=== PATIENT | male | born 1925 | race Caucasian/White ===

== ENCOUNTER 2017-03-26 00:39 | Emergency (ER) | payer MEDICARE ==
[~2017-03-26] VITALS: Ht 170.2 cm; Wt 74.0 kg
[~2017-03-26 00:39] MED LIST: ASPI81TA82 PO; CILO50TA PO; ENAL5TAB PO; LEVO50TA4 PO; METO25 PO; NAPR220T95 PO; NITR0.4S SL; PLAV75TA PO; VITA100020 SL; ZOCO40TA PO
[2017-03-26 00:42] VITALS: BP 211/88; PULSE 52; RESP 17; TEMP 97.5; O2SAT 96
[2017-03-26 00:59] VITALS: BP 216/91; PULSE 55; RESP 16; O2SAT 99
[2017-03-26] MEDS ORDERED: NITR1SUB3 SL (00:59)
[2017-03-26] MEDS ORDERED: SIMV40TA PO (00:59)
[2017-03-26] MEDS ORDERED: LISI-519 PO (00:59)
[2017-03-26] MEDS ORDERED: CLOP75TA PO (00:59)
[2017-03-26] MEDS ORDERED: MULTTAB67 PO (00:59)
[2017-03-26] MEDS ORDERED: ASPI-516 CHEW (00:59)
[2017-03-26] MEDS ORDERED: METO25TA3 PO (00:59)
[2017-03-26] MEDS ORDERED: PROP150T PO (00:59)
[2017-03-26] MEDS ORDERED: LEVO50TA4 PO (00:59)
[2017-03-26 01:30] VITALS: BP 126/82; PULSE 64; RESP 20; O2SAT 98
--- NOTE | 2017-03-26 01:37 | PD ---
HPI Chief Complaint: Abdominal Pain Time Seen by Provider: 00:46 Travel History International Travel<30 days: No Contact w/Intl Traveler<30days: No Traveled to known affect area: No History of Present Illness HPI Patient is a 89-year-old male who for a week his been bloated and feeling not well when he eats. He for the last few days has not been noted move his bowels. And all the food that he eats half an hour later he gets severe epigastric-like pain. He took Tums to alleviate the epigastric-like pain which worked briefly but then the symptoms returned. The patient says he feels bloated unable to move his bowels and food is making him have epigastric pain. He denies ever having a colonoscopy he denies ever having endoscopy and he has never had surgery. Patient has hypertension for which she is on a small dose of lisinopril 5 mg and metoprolol 25 mg only as needed however he did not take it tonight and is heart rate is only 51 bedside. However his initial blood pressure is 216/70. Patient has mild abdomen pain diffuse lower and epigastric pain on initial exam he is no distress however his main complaint was that his neck is in a weird position in the stretcher that's making his abdomen hurt worse. He is a good historian and so is his who is bedside with list of meds. He also takes a small dose of Synthroid for hypothyroidism but he has been on that for a while over 2 years the Tums help relieve his pain temporarily but did not help him move his bowels he has not seen his doctor for this complaint. The bloating is waxing and waning in the epigastric pain comes after food and then breathe better with antacids but then returns. REPEAT MANUAL BP 121/90 PFSH Past Medical History Arthritis: No Asthma: No Autoimmune Disease: No Anxiety: No Depression: No Heart Rhythm Problems: No Cancer: No Cardiac Catheterization: Yes Cardiovascular Problems: No High Cholesterol: Yes Chemotherapy: No Chest Pain: Yes Congestive Heart Failure: No COPD: No Cerebrovascular Accident: No Diabetes: No Endocrine: Yes GERD: No Genitourinary: Yes Hiatal Hernia: No Heparin Induced Thrombocytopen: No Hypertension: Yes Immune Disorder: No Kidney Stones: No Musculoskeletal: No Neurologic: No Psychiatric: No Reproductive: No Respiratory: No Migraines: No Myocardial Infarction: Yes Radiation Therapy: No Renal Failure: No Seizures: No Sickle Cell Disease: No Sleep Apnea: No Thyroid Disease: Yes (HYPOTHYROID) Ulcer: No Tetanus Vaccination: > 5 Years Influenza Vaccination: No Past Surgical History Abdominal Surgery: No AICD: No Arteriovenous Shunt: No Body Medical Devices: CARDIAC STENT Cardiac Surgery: Yes (CARDIAC CATH WITH STENT PLACEMENT) Coronary Stent: Yes Ear Surgery: No Endocrine Surgery: No Eye Surgery: No Genitourinary Surgery: No Gynecologic Surgery: No Insulin Pump: No Joint Replacement: No Oral Surgery: No Pacemaker: No Thoracic Surgery: No Other Surgery: Yes (EYELIDS) Social History Alcohol Use: No Tobacco Use: No Substance Use: No Allergies-Medications (Allergen,Severity, Reaction): Coded Allergies: penicillin G (Unverified Allergy, Severe, Anaphylaxis, 03/26/17) Reported Meds & Prescriptions Reported Meds & Active Scripts Active Protonix (Pantoprazole Sodium) 40 Mg Tab 40 Mg PO DAILY Zofran (Ondansetron HCl) 4 Mg Tab 4 Mg PO Q6HR PRN Reported Vitamin B-12 ER (Cyanocobalamin) 2,000 Mcg Tab 5,000 Mcg PO DIRECTED Aleve PM (Naproxen Sodium-Diphenhydramine) 220-25 Mg Tab 1 Tab PO HS PRN Multiple Vitamin 1 Tab 1 Tab PO DAILY Aspirin 81 Mg Chew 81 Mg CHEW DAILY Metoprolol Tartrate 25 Mg Tab 25 Mg PO DAILY PRN Nitroglycerin SL (Nitroglycerin) 0.4 Mg Subl 0.4 Mg SL DIRECTED PRN ONE TABLET UNDER THE TONGUE NEEDED FOR CHEST PAIN, MAY REPEAT EVERY FIVE MINUTES FOR A TOTAL OF 3 DOSES OR CALL 911 IF NO RELIEF Clopidogrel (Clopidogrel Bisulfate) 75 Mg Tab 75 Mg PO DAILY Lisinopril 5 Mg Tab 5 Mg PO DAILY Simvastatin 40 Mg Tab 40 Mg PO HS Levothyroxine (Levothyroxine Sodium) 50 Mcg Tab 50 Mcg PO DAILY Review of Systems Except as stated in HPI: all other systems reviewed are Neg Gastrointestinal: Positive: Nausea, Abdominal Pain, Constipation Physical Exam Narrative GENERAL: Patient is awake alert oriented 3 good historian no signs of distress SKIN: Warm and dry. HEAD: Atraumatic. Normocephalic. EYES: Pupils equal and round. No scleral icterus. No injection or drainage. ENT: No nasal bleeding or discharge. Mucous membranes pink and moist. NECK: Trachea midline. No JVD. CARDIOVASCULAR: Regular rate and rhythm. RESPIRATORY: No accessory muscle use. Clear to auscultation. Breath sounds equal bilaterally. GASTROINTESTINAL: Abdomen positive tenderness in the epigastrium as well as bloated and distended feeling reported when I percuss his lower abdomen soft, . Hepatic and splenic margins not pa RECTAL GUAIAC NEGATIV E BROWN STOOL ONLY SMALL AMOUNT FELT TIP OF GLOVE IN SIGMOID MUSCULOSKELETAL: Extremities without clubbing, cyanosis, or edema. No obvious deformities. NEUROLOGICAL: Awake and alert. No obvious cranial nerve deficits. Motor grossly within normal limits. Five out of 5 muscle strength in the arms and legs. Normal speech. PSYCHIATRIC: Appropriate mood and affect; insight and judgment normal. Data Data Last Documented VS Vital Signs Date Time Temp Pulse Resp B/P (MAP) Pulse Ox O2 Delivery O2 Flow Rate FiO2 03/26/17 06:10 03/26/17 06:00 58 18 99 Room Air 03/26/17 00:42 97.5 Orders Orders Complete Blood Count With Diff (03/26/17 01:30) Comprehensive Metabolic Panel (03/26/17 01:30) Ckmb (Isoenzyme) Profile (03/26/17 01:30) Troponin I (03/26/17 01:30) Lipase (03/26/17 01:30) Chest, Single Ap (03/26/17 01:30) Abdomen, Upright Only (03/26/17 01:30) Pantoprazole Inj (Protonix Inj) (03/26/17 01:45) Ondansetron Inj (Zofran Inj) (03/26/17 01:45) CKMB (03/26/17 01:35) CKMB% (03/26/17 01:35) Oral Contrast - Adult (03/26/17 02:26) Diatrizoate Liq ( Gastroview Liq) (03/26/17 02:44) Ct Abd/Pel W/O Iv Contrast (03/26/17 ) Metoclopramide Inj (Reglan Inj) (03/26/17 04:45) Ed Discharge Order (03/26/17 06:15) Labs Laboratory Tests Test 03/26/17 01:35 White Blood Count 12.9 TH/MM3 Red Blood Count 5.10 MIL/MM3 Hemoglobin 16.0 GM/DL Hematocrit 47.2 % Mean Corpuscular Volume 92.5 FL Mean Corpuscular Hemoglobin 31.4 PG Mean Corpuscular Hemoglobin Concent 34.0 % Red Cell Distribution Width 13.5 % Platelet Count 207 TH/MM3 Mean Platelet Volume 10.0 FL Neutrophils (%) (Auto) 73.8 % Lymphocytes (%) (Auto) 16.5 % Monocytes (%) (Auto) 6.8 % Eosinophils (%) (Auto) 2.5 % Basophils (%) (Auto) 0.4 % Neutrophils # (Auto) 9.5 TH/MM3 Lymphocytes # (Auto) 2.1 TH/MM3 Monocytes # (Auto) 0.9 TH/MM3 Eosinophils # (Auto) 0.3 TH/MM3 Basophils # (Auto) 0.1 TH/MM3 CBC Comment DIFF FINAL Differential Comment Blood Urea Nitrogen 27 MG/DL Creatinine 2.20 MG/DL Random Glucose 121 MG/DL Total Protein 7.9 GM/DL Albumin 4.2 GM/DL Calcium Level 9.0 MG/DL Alkaline Phosphatase 145 U/L Aspartate Amino Transf (AST/SGOT) 25 U/L Alanine Aminotransferase (ALT/SGPT) 25 U/L Total Bilirubin 0.6 MG/DL Sodium Level 142 MEQ/L Potassium Level 3.5 MEQ/L Chloride Level 108 MEQ/L Carbon Dioxide Level 26.3 MEQ/L Anion Gap 8 MEQ/L Estimat Glomerular Filtration Rate 28 ML/MIN Total Creatine Kinase 130 U/L Creatine Kinase MB 1.6 NG/ML Troponin I 0.02 NG/ML Lipase 420 U/L MDM Medical Decision Making Medical Screen Exam Complete: Yes Emergency Medical Condition: Yes Differential Diagnosis pt could have gastroenteritis versus small bowel obstruction versus gastric volvulus versus outlet obstruction of the gastrum . Versus GERD with constipation Narrative Course Patient's labs are within normal limitsEKG trop negative KUB upright and a chest x-ray and no obvious findings... however he still continues to have difficulty moving his bowels . Rectal minimal stool guaiac negative... CT abdo pelvis no specific pathology to explain the vomit , Reglan zofran and PO challenge tolerated d/c close follow up with his PCP for EGD told to return if pain or vomit worsens Diagnosis Primary Impression: Pain in the abdomen Qualified Codes: R10.9 - Unspecified abdominal pain Patient Instructions: Abdominal Pain (ED), General Instructions Scripts Pantoprazole (Protonix) 40 Mg Tab 40 MG PO DAILY for Reflux, #20 TAB 0 Refills Prov: Husam Charles MD 03/26/17 Ondansetron (Zofran) 4 Mg Tab 4 MG PO Q6HR Y for NAUSEA OR VOMITING, #10 TAB 0 Refills Prov: Husam Charles MD 03/26/17 Disposition: 01 DISCHARGE HOME Condition: Good Husam Cahrles MD Mar 26, 2017 01:37
[2017-03-26] MEDS ORDERED: PANTOPRAZOLE SODIUM 40 MG VIAL IV PUSH ONE (01:45)
[2017-03-26] MEDS ORDERED: ONDANSETRON HCL 4 MG/2 ML VIAL IV PUSH ONE (01:45)
[2017-03-26 01:57] LABS: AUTOMATED NEUTROPHIL # 9.5 TH/MM3 (1.8-7.7); BASOPHIL # 0.1 TH/MM3 (0-0.2); BASOPHIL % 0.4 % (0.0-2.0); EOSINOPHIL # 0.3 TH/MM3 (0-0.4); EOSINOPHIL % 2.5 % (0.0-4.0); HEMATOCRIT 47.2 % (39.0-51.0); LYMPH % 16.5 % (9.0-44.0); LYMPHOCYTE # 2.1 TH/MM3 (1.0-4.8); MEAN CELL VOLUME 92.5 FL (80.0-100.0); MEAN CORPUSCULAR HEMOGLOBIN 31.4 PG (27.0-34.0); MONO % 6.8 % (0.0-8.0); MONOCYTE # 0.9 TH/MM3 (0-0.9); NEUT % 73.8 % (16.0-70.0); PLATELET COUNT 207 TH/MM3 (150-450); RED CELL DISTRIBUTION WIDTH 13.5 % (11.6-17.2); WHITE BLOOD COUNT 12.9 TH/MM3 (4.0-11.0)
[2017-03-26 02:19] LABS: ALBUMIN 4.2 GM/DL (3.4-5.0); ALT (GPT) 25 U/L (12-78); AST (GOT) 25 U/L (15-37); BICARBONATE 26.3 MEQ/L (21.0-32.0); BLOOD UREA NITROGEN 27 MG/DL (7-18); CHLORIDE 108 MEQ/L (98-107); GLOMERULAR FILTRATION RATE 28 ML/MIN (>89); GLUCOSE,RANDOM 121 MG/DL (74-106); LIPASE 420 U/L (73-393); SODIUM (NA) 142 MEQ/L (136-145)
[2017-03-26 02:20] LABS: ALKALINE PHOSPHATASE 145 U/L (45-117); TOTAL BILIRUBIN ADULT 0.6 MG/DL (0.2-1.0); TOTAL PROTEIN 7.9 GM/DL (6.4-8.2); TROPONIN I 0.02 NG/ML (0.02-0.05)
--- NOTE | 2017-03-26 02:21 | RADRPT ---
EXAM DATE/TIME: 03/26/2017 01:39 [facility] COMPARISON: No previous studies available for comparison. INDICATIONS : Chest pain. MEDICAL HISTORY : Hypertension. SURGICAL HISTORY : Coronary artery stent. ENCOUNTER: Initial ACUITY: 1 day PAIN SCORE: 9/10 LOCATION: Bilateral chest FINDINGS: The lungs are clear without infiltrate, nodule, or mass. There is no appreciable pleural effusion fo r technique. Heart and mediastinum are unremarkable. There are atherosclerotic calcifications of the aorta due to chronic atherosclerotic disease. CONCLUSION: No acute cardiopulmonary disease. Jerzy Rodarte MD on March 26, 2017 at 2:19 Board Certified Radiologist. This report was verified electronically.
--- NOTE | 2017-03-26 02:21 | RADRPT ---
EXAM DATE/TIME: 03/26/2017 01:41 [facility] COMPARISON: No previous studies available for comparison. INDICATIONS : Bilateral upper quadrant abdominal pain. MEDICAL HISTORY : Hypertension. SURGICAL HISTORY : Coronary artery stent. ENCOUNTER: Initial ACUITY: 1 day PAIN SCORE: 9/10 LOCATION: Bilateral upper quadrant abdomen FINDINGS: The bowel gas is nonspecific. There are no signs of obstruction or free air for technique. No defini te calcified stones are identified for technique. Moderate stool is present throughout the colon. CONCLUSION: Unremarkable study except for stool. Jerzy Rodarte MD on March 26, 2017 at 2:19 Board Certified Radiologist. This report was verified electronically.
[2017-03-26] MEDS ORDERED: DIATRIZOATE MEGLUM/DIATRIZOATE SOD 9 ML CUP ONE (02:44)
--- NOTE | 2017-03-26 04:10 | RADRPT ---
EXAM DATE/TIME: 03/26/2017 03:42 [facility] COMPARISON: No previous studies available for comparison. INDICATIONS : Distention; constipation. ORAL CONTRAST: Partial prescribed oral contrast ingested. RADIATION DOSE: 7.44 CTDIvol (mGy) MEDICAL HISTORY : Cardiovascular disease. Hypertension. Renal failure, chronic. SURGICAL HISTORY : None. ENCOUNTER: Initial ACUITY: 1 day PAIN SCALE: 5/10 LOCATION: Bilateral abdomen TECHNIQUE: Volumetric scanning of the abdomen and pelvis was performed. Using automated exposure control and ad justment of the mA and/or kV according to patient size, radiation dose was kept as low as reasonably achievable to obtain optimal diagnostic quality images. DICOM format image data is available electro nically for review and comparison. FINDINGS: CT Abdomen: The liver, spleen, pancreas, left kidney, adrenals are unremarkable. There are 2 separate almost 4 cm cyst in the right kidney. There is no evidence for any appreciable pathological adenopat hy, free fluid, or bowel obstruction. There is a tiny 4 mm nodule in right lower lobe laterally with separate area of atelectasis. Chronic vascular calcifications are present involving the aorta, iliac arteries without any significant stenosis or aneurysmal dilatations for technique. The aorta however demonstrates areas of calcifications that are probably atherosclerotic changes within the wall, howev er possibility of dissection is not excluded. CT pelvis: There is no evidence for mass, abscess formation, or any significant adenopathy within the pelvis. The prostate gland is inhomogeneous and measures 3.6 x 5.4 cm in AP and transverse diameters and nonspecific. There are scattered diverticuli mainly in the sigmoid colon without definite signs of diverticulitis. CONCLUSION: 1. There is a tiny right lung base nodule, repeat noncontrast chest CT is suggested in 6 months as a conservative follow up. 2. Atherosclerotic changes of aorta without aneurysm, however dissection is not excluded. 3. Hiatal hernia and colonic diverticuli. Jerzy Rodarte MD on March 26, 2017 at 4:03 Board Certified Radiologist. This report was verified electronically.
[2017-03-26] MEDS ORDERED: METOCLOPRAMIDE INJ 10 MG in SODIUM CHLORIDE 0.9% INJ 50 ML IV ONE (04:45)
[2017-03-26] MEDS ORDERED: ZOFR4TAB PO (05:52)
[2017-03-26] MEDS ORDERED: PROT40TA PO (05:53)
[2017-03-26 06:00] VITALS: BP 140/76; PULSE 58; RESP 18; O2SAT 99
[2017-03-26] MEDS ORDERED: VITA20004 PO (16:46)
[2017-03-26] MEDS ORDERED: NAPR1TAB98 PO (16:46)
== END 2017-03-26 06:25 | disposition home or self-care (01) ==
LOC: NEPC 00:39
DX: R10.13 Epigastric pain (principal); I10 Essential (primary) hypertension; E03.9 Hypothyroidism, unspecified
CPT/HCPCS: 71010; 74000; 74176; 80053; 82550; 82552; 83690; 84484; 85025; 96365; 96366; 96375; 99285; C9113; J2405; J2765; Q9963

== ENCOUNTER 2017-03-26 15:23 | Inpatient (IN) | payer MEDICARE ==
[~2017-03-26] VITALS: Ht 170.2 cm; Wt 76.8 kg
[2017-03-26] VITALS (8 sets, daily range): BP systolic 148–213; BP diastolic 70–84; PULSE 65–90; RESP 12–24; TEMP 97.4–97.8; O2SAT 93–98
[~2017-03-26 15:23] MED LIST changes: +ASPI-516 CHEW; +CLOP75TA PO; +LISI-519 PO; +METO25TA3 PO; +MULTTAB67 PO; +NITR1SUB3 SL; +PROP150T PO; +PROT40TA PO; +SIMV40TA PO; +ZOFR4TAB PO
--- NOTE | 2017-03-26 15:59 | PD ---
HPI Chief Complaint: Abdominal Pain Time Seen by Provider: 15:44 Travel History International Travel<30 days: No Contact w/Intl Traveler<30days: No Traveled to known affect area: No History of Present Illness HPI Patient is an 89 year old male presents to the ER for evaluation of epigastric pain. Here last night for same and had fairly complete workup including CT abd , labs, troponin, EKG all of which showed no definative source of pain. He states pain is epigastric, intermittent, not associated with N/V nor SOB. No alleviating nor exacerbating factors. PFSH Past Medical History Arthritis: No Asthma: No Autoimmune Disease: No Anxiety: No Depression: No Heart Rhythm Problems: No Cancer: No Cardiac Catheterization: Yes Cardiovascular Problems: No High Cholesterol: Yes Chemotherapy: No Chest Pain: Yes Congestive Heart Failure: No COPD: No Cerebrovascular Accident: No Diabetes: No Endocrine: Yes GERD: No Genitourinary: Yes Hiatal Hernia: No Heparin Induced Thrombocytopen: No Hypertension: Yes Immune Disorder: No Kidney Stones: No Musculoskeletal: No Neurologic: No Psychiatric: No Reproductive: No Respiratory: No Migraines: No Myocardial Infarction: Yes Radiation Therapy: No Renal Failure: No Seizures: No Sickle Cell Disease: No Sleep Apnea: No Thyroid Disease: Yes (HYPOTHYROID) Ulcer: No Past Surgical History Abdominal Surgery: No AICD: No Arteriovenous Shunt: No Body Medical Devices: CARDIAC STENT Cardiac Surgery: Yes (CARDIAC CATH WITH STENT PLACEMENT) Coronary Stent: Yes Ear Surgery: No Endocrine Surgery: No Eye Surgery: No Genitourinary Surgery: No Gynecologic Surgery: No Insulin Pump: No Joint Replacement: No Oral Surgery: No Pacemaker: No Thoracic Surgery: No Other Surgery: Yes (EYELIDS) Social History Alcohol Use: No Tobacco Use: No Substance Use: No Allergies-Medications (Allergen,Severity, Reaction): Coded Allergies: penicillin G (Unverified Allergy, Severe, Anaphylaxis, 03/26/17) Reported Meds & Prescriptions Reported Meds & Active Scripts Active Protonix (Pantoprazole Sodium) 40 Mg Tab 40 Mg PO DAILY Zofran (Ondansetron HCl) 4 Mg Tab 4 Mg PO Q6HR PRN Reported Vitamin B-12 ER (Cyanocobalamin) 2,000 Mcg Tab 5,000 Mcg PO DIRECTED Aleve PM (Naproxen Sodium-Diphenhydramine) 220-25 Mg Tab 1 Tab PO HS PRN Multiple Vitamin 1 Tab 1 Tab PO DAILY Aspirin 81 Mg Chew 81 Mg CHEW DAILY Metoprolol Tartrate 25 Mg Tab 25 Mg PO DAILY PRN Nitroglycerin SL (Nitroglycerin) 0.4 Mg Subl 0.4 Mg SL DIRECTED PRN ONE TABLET UNDER THE TONGUE NEEDED FOR CHEST PAIN, MAY REPEAT EVERY FIVE MINUTES FOR A TOTAL OF 3 DOSES OR CALL 911 IF NO RELIEF Clopidogrel (Clopidogrel Bisulfate) 75 Mg Tab 75 Mg PO DAILY Lisinopril 5 Mg Tab 5 Mg PO DAILY Simvastatin 40 Mg Tab 40 Mg PO HS Levothyroxine (Levothyroxine Sodium) 50 Mcg Tab 50 Mcg PO DAILY Review of Systems Except as stated in HPI: all other systems reviewed are Neg Physical Exam Narrative GENERAL: WD/WN in no obvious distress, quite pleasant. SKIN: Warm and dry. HEAD: Atraumatic. Normocephalic. EYES: Pupils equal and round. No scleral icterus. No injection or drainage. ENT: No nasal bleeding or discharge. Mucous membranes pink and moist. NECK: Trachea midline. No JVD. CARDIOVASCULAR: Regular rate and rhythm. RESPIRATORY: No accessory muscle use. Clear to auscultation. Breath sounds equal bilaterally. GASTROINTESTINAL: Abdomen soft, perhaps minimally tender in the epigastric region. No rebound no percussive tnederness. nondistended. Hepatic and splenic margins not palpable. MUSCULOSKELETAL: Extremities without clubbing, cyanosis, or edema. No obvious deformities. NEUROLOGICAL: Awake and alert. No obvious cranial nerve deficits. Motor grossly within normal limits. Five out of 5 muscle strength in the arms and legs. Normal speech. PSYCHIATRIC: Appropriate mood and affect; insight and judgment normal. Data Data Last Documented VS Vital Signs Date Time Temp Pulse Resp B/P (MAP) Pulse Ox O2 Delivery O2 Flow Rate FiO2 03/26/17 18:30 68 24 186/80 (115) 97 Room Air 03/26/17 15:27 97.8 Orders Orders Complete Blood Count With Diff (03/26/17 15:46) Comprehensive Metabolic Panel (03/26/17 15:46) Lipase (03/26/17 15:46) Urinalysis - C+S If Indicated (03/26/17 15:46) Iv Access Insert/Monitor (03/26/17 15:46) Ecg Monitoring (03/26/17 15:46) Oximetry (03/26/17 15:46) Sodium Chloride 0.9% Flush (Ns Flush) (03/26/17 16:00) Electrocardiogram (03/26/17 15:46) Troponin I (03/26/17 15:46) Ondansetron Inj (Zofran Inj) (03/26/17 16:00) Morphine Inj (Morphine Inj) (03/26/17 16:00) Us Abdomen Gallbladder (03/26/17 15:57) Aspirin Chew (Aspirin Chew) (03/26/17 18:30) Electrocardiogram (03/26/17 ) Troponin I (03/26/17 18:37) Heparin Inj (Heparin Inj) (03/26/17 18:45) Heparin-D5w 25,000 U/250 Ml (Heparin-D5w (03/26/17 18:45) Cbc No Diff, Includes Plts (03/29/17 06:00) Act Partial Throm Time (Ptt) (03/27/17 01:37) Occult Blood (Hemoccult) Stool (03/26/17 18:37) Admit Order (Ed Use Only) (03/26/17 ) Labs Laboratory Tests Test 03/26/17 16:50 03/26/17 19:20 White Blood Count 16.3 TH/MM3 Red Blood Count 5.27 MIL/MM3 Hemoglobin 16.6 GM/DL Hematocrit 48.5 % Mean Corpuscular Volume 92.1 FL Mean Corpuscular Hemoglobin 31.4 PG Mean Corpuscular Hemoglobin Concent 34.1 % Red Cell Distribution Width 13.7 % Platelet Count 190 TH/MM3 Mean Platelet Volume 10.2 FL Neutrophils (%) (Auto) 87.7 % Lymphocytes (%) (Auto) 4.6 % Monocytes (%) (Auto) 7.4 % Eosinophils (%) (Auto) 0.0 % Basophils (%) (Auto) 0.3 % Neutrophils # (Auto) 14.3 TH/MM3 Lymphocytes # (Auto) 0.7 TH/MM3 Monocytes # (Auto) 1.2 TH/MM3 Eosinophils # (Auto) 0.0 TH/MM3 Basophils # (Auto) 0.1 TH/MM3 CBC Comment AUTO DIFF Differential Comment AUTO DIFF CONFIRMED Red Cell Morphology Comment NORMAL Blood Urea Nitrogen 25 MG/DL Creatinine 2.07 MG/DL Random Glucose 132 MG/DL Total Protein 7.6 GM/DL Albumin 3.7 GM/DL Calcium Level 9.4 MG/DL Alkaline Phosphatase 186 U/L Aspartate Amino Transf (AST/SGOT) 206 U/L Alanine Aminotransferase (ALT/SGPT) 201 U/L Total Bilirubin 1.3 MG/DL Sodium Level 140 MEQ/L Potassium Level 4.7 MEQ/L Chloride Level 109 MEQ/L Carbon Dioxide Level 23.5 MEQ/L Anion Gap 8 MEQ/L Estimat Glomerular Filtration Rate 30 ML/MIN Troponin I 0.64 NG/ML 0.57 NG/ML Lipase 170 U/L [facility] Medical Decision Making Medical Screen Exam Complete: Yes Emergency Medical Condition: Yes Differential Diagnosis Pancreatitis, cholecystitis, ACS, AMI, gastroenteritis, PUD. Narrative Course Patient roomed in ED, appears comfortable. Pain medication given. EKG non- ischemic, repeated after troponin discovered elevated at 0.6 and remains non- ischemic. Patient heparinized after determined no contraindications. CXR negative. Appears comfortable. AST/ALT elevated as well. Discussed results with patient. US RUQ ordered, pain may be multifactorial: Last 24 hours Impressions Gall Bladder Ultrasound 03/26/17 [id number] Signed Impressions: Service Date/Time: Sunday, March 26, 2017 16:53 - CONCLUSION: 1. Gallbladder sludge with gallbladder wall thickening without other features to suggest acute cholecystitis. Therefore, findings are somewhat nonspecific and likely chronic in etiology. HIDA scan may be performed if there is continued clinical concern regarding acute cholecystitis. 2. Increased cortical echogenicity of the right kidney consistent with some degree of medical renal disease. 3. Simple right renal cysts. Jonh Jordan MD Patient discussed with Dr. Banks for admition and he is agreeable. Will pursue cardiology consult as inpatient. Diagnosis Primary Impression: Non-STEMI (non-ST elevated myocardial infarction) Additional Impressions: Transaminitis Elevated lipase Admitting Information Admitting Physician Requests: Admit Condition: Stable Kd Abraham MD Mar 26, 2017 15:59
[2017-03-26] MEDS ORDERED: SODIUM CHLORIDE 0.9% FLUSH 10 ML FLUSH IV FLUSH PRN ×2 (16:00→20:30)
[2017-03-26] MEDS ORDERED: MORPHINE SULFATE 2 MG/ML INJ IV PUSH ONE (16:00)
[2017-03-26] MEDS ORDERED: ONDANSETRON HCL 4 MG/2 ML VIAL IV PUSH ONE (16:00)
[2017-03-26] MEDS ORDERED: VITA20004 PO (16:46)
[2017-03-26] MEDS ORDERED: NAPR1TAB98 PO (16:46)
[2017-03-26 17:20] LABS: AUTOMATED NEUTROPHIL # 14.3 TH/MM3 (1.8-7.7); BASOPHIL # 0.1 TH/MM3 (0-0.2); BASOPHIL % 0.3 % (0.0-2.0); HEMATOCRIT 48.5 % (39.0-51.0); HEMOGLOBIN 16.6 GM/DL (13.0-17.0); LYMPH % 4.6 % (9.0-44.0); LYMPHOCYTE # 0.7 TH/MM3 (1.0-4.8); MEAN CELL VOLUME 92.1 FL (80.0-100.0); MEAN CORPUSCULAR HEMOGLOBIN 31.4 PG (27.0-34.0); MEAN CORPUSCULAR HGB CONC 34.1 % (32.0-36.0); MEAN PLATELET VOLUME 10.2 FL (7.0-11.0); MONO % 7.4 % (0.0-8.0); MONOCYTE # 1.2 TH/MM3 (0-0.9); NEUT % 87.7 % (16.0-70.0); PLATELET COUNT 190 TH/MM3 (150-450); RED BLOOD COUNT 5.27 MIL/MM3 (4.50-5.90); RED CELL DISTRIBUTION WIDTH 13.7 % (11.6-17.2); WHITE BLOOD COUNT 16.3 TH/MM3 (4.0-11.0)
--- NOTE | 2017-03-26 17:34 | RADRPT ---
EXAM DATE/TIME: 03/26/2017 16:53 [facility] COMPARISON: No previous studies available for comparison. INDICATIONS : Right upper quadrant pain. MEDICAL HISTORY : Myocardial infarction. Hypothyroidism. Hypercholesterolemia. Legally blind. Numbness. Hypertension. R enal insufficiency. Measles. SURGICAL HISTORY : Coronary artery stent. ENCOUNTER: Initial ACUITY: 1 day PAIN SCORE: 04/09 LOCATION: Right upper quadrant MEASUREMENTS: LIVER: 11.2 cm length COMMON DUCT: 4 mm RIGHT KIDNEY: 11.5 x 5.1 x 5.9 cm FINDINGS: LIVER: Left lobe is obscured by overlying bowel gas. Otherwise, diffusely homogeneous echotexture without in trahepatic ductal dilatation or gross focal mass. COMMON DUCT: No intraluminal mass or stone visualized. GALLBLADDER: The gallbladder wall thickening with small amount of gallbladder sludge in the dependent portion of t he gallbladder. No significant pericholecystic fluid or sonographic Ham sign. PANCREAS: Largely obscured by overlying bowel gas. RIGHT KIDNEY: Mild increased cortical echogenicity with simple appearing cysts in the superior and lower poles. The superior pole cyst measures 4.6 x 4.1 x 4.2 cm. Inferior pole cyst measures 2.9 x 4.6 x 3.8 cm. No h ydronephrosis or significant mass. CONCLUSION: 1. Gallbladder sludge with gallbladder wall thickening without other features to suggest acute cholec ystitis. Therefore, findings are somewhat nonspecific and likely chronic in etiology. HIDA scan may b e performed if there is continued clinical concern regarding acute cholecystitis. 2. Increased cortical echogenicity of the right kidney consistent with some degree of medical renal d isease. 3. Simple right renal cysts. Jonh Jordan MD on March 26, 2017 at 17:29 Board Certified Radiologist. This report was verified electronically.
[2017-03-26 17:39] LABS: ALBUMIN 3.7 GM/DL (3.4-5.0); ALT (GPT) 201 U/L (12-78); AST (GOT) 206 U/L (15-37); BICARBONATE 23.5 MEQ/L (21.0-32.0); BLOOD UREA NITROGEN 25 MG/DL (7-18); CALCIUM 9.4 MG/DL (8.5-10.1); CHLORIDE 109 MEQ/L (98-107); CREATININE 2.07 MG/DL (0.60-1.30); GLOMERULAR FILTRATION RATE 30 ML/MIN (>89); GLUCOSE,RANDOM 132 MG/DL (74-106); LIPASE 170 U/L (73-393); SODIUM (NA) 140 MEQ/L (136-145)
[2017-03-26 17:41] LABS: ALKALINE PHOSPHATASE 186 U/L (45-117); TOTAL BILIRUBIN ADULT 1.3 MG/DL (0.2-1.0); TOTAL PROTEIN 7.6 GM/DL (6.4-8.2)
[2017-03-26 17:48] LABS: TROPONIN I 0.64 NG/ML (0.02-0.05)
[2017-03-26] MEDS ORDERED: ASPIRIN 81 MG CHEW TAB CHEW ONE (18:30)
[2017-03-26] MEDS ORDERED: HEPARIN SODIUM - IV 10,000 UNITS/10 ML VIAL IV ONE (18:45)
[2017-03-26] MEDS ORDERED: HEPARIN-D5W 25,000 U/250 ML 250 ML IV PRN (18:45)
--- NOTE | 2017-03-26 20:17 | HHI.HP ---
HPI Service CP Hospitalists Primary Care Physician Unknown Admission Diagnosis NSTEMI Chief Complaint: epigastric pain (intermittent), vomiting yesterday Travel History International Travel<30 Days: No Contact w/Intl Traveler <30 Da: No Traveled to Known Affected Are: No History of Present Illness 89-year-old male with dementia and history of hypertension and apparent coronary artery disease with distant history is stent placement presents for epigastric discomfort. He reports he has had this discomfort off and on for approximately 2 years. He was seen for some similar pain with SVT approximately a year and a half ago and had a negative adenosine thallium stress test at that time. In much earlier today and had a negative troponin with mildly elevated lipase and symptoms consistent with gastritis. Was discharged home and continued to have symptoms so his significant other brought him back to the ER this evening. Reevaluation revealed normal EKG at this time slightly elevated troponin of 0.64. She is currently asymptomatic with the exception of occasional epigastric burning pain. He denies any radiation of pain. He does have some underlying dementia and his history or a cold presentation is somewhat suspect. He reports that he vomited 3 times yesterday but none today. Denies any hematochezia or melena. He was chills. Denies any chest wall or abdominal trauma. Interestingly his repeat lipase is normal, but LFTs have risen. Ultrasound revealed some thickening of the gallbladder and sludge but no apparent acute findings associated with cholecystitis. He has been placed on heparin drip and I discussed the case with Dr. Ricardo who is covering cardiology service. Review of Systems ROS Limitations: Poor Historian Constitutional: COMPLAINS OF: Fatigue, DENIES: Diaphoretic episodes, Fever, Weight gain, Weight loss, Chills, Dizziness, Change in appetite, Night Sweats Endocrine: DENIES: Heat/cold intolerance, Polydipsia, Polyuria, Polyphagia Eyes: COMPLAINS OF: Blurred vision, Vision loss, DENIES: Diplopia, Eye inflammation, Eye pain, Photosensitivity, Double Vision Ears, nose, mouth, throat: DENIES: Tinnitus, Hearing loss, Vertigo, Nasal discharge, Oral lesions, Throat pain, Hoarseness, Ear Pain, Running Nose, Epistaxis, Sinus Pain, Toothache, Odynophagia Respiratory: COMPLAINS OF: Cough, DENIES: Apneas, Snoring, Wheezing, Hemoptysis , Sputum production, Shortness of breath Cardiovascular: DENIES: Chest pain, Palpitations, Syncope, Dyspnea on Exertion , PND, Lower Extremity Edema, Orthopnea, Claudication Gastrointestinal: COMPLAINS OF: Abdominal pain, GERD, Nausea, Vomiting, DENIES : Black stools, Bloody stools, BRB per rectum, Constipation, Diarrhea, Reflux, Difficulty Swallowing, Anorexia, See HPI Musculoskeletal: COMPLAINS OF: Joint pain Hematologic/lymphatic: DENIES: Bruising, Lymphadenopathy Immunologic/allergic: DENIES: Eczema, Urticaria Neurologic: DENIES: Abnormal gait, Headache, Localized weakness, Paresthesias, Seizures, Speech Problems, Tremor, Poor Balance Psychiatric: COMPLAINS OF: Anxiety, Confusion Past Family Social History Past Medical History 1) hypertension 2) coronary artery disease - History of CA History of coronary stents: PCI to OM and LAD with Xience Stent August 2010 3) paroxysmal supraventricular tachycardia 4) chronic kidney disease, stage III 5) hypothyroidism 6) peripheral vascular disease 7) GERD Past Surgical History 1) eye surgery, unspecified 2) coronary stent placement Reported Medications Protonix (Pantoprazole Sodium) 40 Mg Tab 40 Mg PO DAILY Zofran (Ondansetron HCl) 4 Mg Tab 4 Mg PO Q6HR PRN Metoprolol Tartrate 25 mg (Metoprolol Tartrate) 25 Mg Tab 12.5 Mg PO Q12HR Multiple Vitamin 1 Tab 1 Tab PO DAILY Aspirin 81 Mg Chew 81 Mg CHEW DAILY Propafenone (Propafenone HCl) 150 Mg Tab 150 Mg PO DAILY PRN Nitroglycerin SL (Nitroglycerin) 0.4 Mg Subl 0.4 Mg SL DIRECTED PRN ONE TABLET UNDER THE TONGUE NEEDED FOR CHEST PAIN, MAY REPEAT EVERY FIVE MINUTES FOR A TOTAL OF 3 DOSES OR CALL 911 IF NO RELIEF Clopidogrel (Clopidogrel Bisulfate) 75 Mg Tab 75 Mg PO DAILY Lisinopril 5 Mg Tab 5 Mg PO DAILY Simvastatin 40 Mg Tab 40 Mg PO HS Levothyroxine 50 mcg (Levothyroxine Sodium) 50 Mcg Tab 50 Mcg PO DAILY Cilostazol 50 Mg Tab 50 Mg PO BIDAC Aleve (Naproxen Sodium) 220 Mg Tab 220 Mg PO DAILY Vitamin B-12 Extended Rel (Miscellaneous Medication) 1,000 Mcg Subl 1,000 Mcg SL DAILY Allergies: Coded Allergies: penicillin G (Unverified Allergy, Severe, Anaphylaxis, 03/26/17) Family History nc Social History Lives with his significant other 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 Physical Exam Vital Signs Vital Signs Date Time Temp Pulse Resp B/P (MAP) Pulse Ox O2 Delivery O2 Flow Rate FiO2 03/26/17 19:33 18 03/26/17 18:30 68 24 186/80 (115) 97 Room Air 03/26/17 17:32 65 12 213/78 (123) 97 Room Air 03/26/17 17:00 68 17 192/80 (117) 97 Room Air 03/26/17 16:38 97 Room Air 03/26/17 16:30 68 17 193/79 (117) 98 Room Air 03/26/17 15:27 97.8 90 14 185/84 (117) 93 Room Air Physical Exam GENERAL: This is a well-nourished, well-developed patient, in no apparent distress. SKIN: No rashes, ecchymoses or lesions. Cool and dry. HEAD: Atraumatic. Normocephalic. No temporal or scalp tenderness. EYES: Pupils equal round and reactive. Extraocular motions intact. No scleral icterus. No injection or drainage. ENT: Nose without bleeding, purulent drainage or septal hematoma. Throat without erythema, tonsillar hypertrophy or exudate. Uvula midline. Airway patent. NECK: Trachea midline. No JVD or lymphadenopathy. Supple, nontender, no meningeal signs. CARDIOVASCULAR: Regular rate and rhythm without murmurs, gallops, or rubs. RESPIRATORY: Clear to auscultation. Breath sounds equal bilaterally. No wheezes , rales, or rhonchi. GASTROINTESTINAL: Abdomen soft, non-tender, nondistended. No hepato-splenomegaly , or palpable masses. No guarding. MUSCULOSKELETAL: Extremities without clubbing, cyanosis, or edema. No joint tenderness, effusion, or edema noted. No calf tenderness. Negative Homans sign bilaterally. NEUROLOGICAL: Awake and alert. Cranial nerves II through XII intact. Motor and sensory grossly within normal limits. Five out of 5 muscle strength in all muscle groups. Normal speech. Laboratory Laboratory Tests Test 03/26/17 16:50 03/26/17 19:20 White Blood Count 16.3 Red Blood Count 5.27 Hemoglobin 16.6 Hematocrit 48.5 Mean Corpuscular Volume 92.1 Mean Corpuscular Hemoglobin 31.4 Mean Corpuscular Hemoglobin Concent 34.1 Red Cell Distribution Width 13.7 Platelet Count 190 Mean Platelet Volume 10.2 Neutrophils (%) (Auto) 87.7 Lymphocytes (%) (Auto) 4.6 Monocytes (%) (Auto) 7.4 Eosinophils (%) (Auto) 0.0 Basophils (%) (Auto) 0.3 Neutrophils # (Auto) 14.3 Lymphocytes # (Auto) 0.7 Monocytes # (Auto) 1.2 Eosinophils # (Auto) 0.0 Basophils # (Auto) 0.1 CBC Comment AUTO DIFF Differential Comment AUTO DIFF CONFIRMED Red Cell Morphology Comment NORMAL Blood Urea Nitrogen 25 Creatinine 2.07 Random Glucose 132 Total Protein 7.6 Albumin 3.7 Calcium Level 9.4 Alkaline Phosphatase 186 Aspartate Amino Transf (AST/SGOT) 206 Alanine Aminotransferase (ALT/SGPT) 201 Total Bilirubin 1.3 Sodium Level 140 Potassium Level 4.7 Chloride Level 109 Carbon Dioxide Level 23.5 Anion Gap 8 Estimat Glomerular Filtration Rate 30 Troponin I 0.64 Lipase 170 Result Diagram: 03/26/17 1650 03/26/17 165 Imaging Last 72 hours Impressions Gall Bladder Ultrasound 03/26/17 1557 Signed Impressions: Service Date/Time: Sunday, March 26, 2017 16:53 - CONCLUSION: 1. Gallbladder sludge with gallbladder wall thickening without other features to suggest acute cholecystitis. Therefore, findings are somewhat nonspecific and likely chronic in etiology. HIDA scan may be performed if there is continued clinical concern regarding acute cholecystitis. 2. Increased cortical echogenicity of the right kidney consistent with some degree of medical renal disease. 3. Simple right renal cysts. MD Eladio Tonyi VTE Risk Assessment Caprini VTE Risk Assessment: Mod/High Risk (score >= 2) Caprini Risk Assessment Model Point Value = 1 Point Value = 2 Point Value = 3 Point Value = 5 Age 41-60 Minor surgery BMI > 25 kg/m2 Swollen legs Varicose veins or History of unexplained or recurrent spontaneous Oral contraceptives or hormone replacement Sepsis (< 1 month) Serious lung disease, including pneumonia (< 1 month) Abnormal pulmonary function Acute myocardial infarction Congestive heart failure (< 1 month) History of inflammatory bowel disease Medical patient at bed rest Age 61-74 Arthroscopic surgery Major open surgery (> 45 min) Laparoscopic surgery (> 45 min) Malignancy Confined to bed (> 72 hours) Immobilizing plaster cast Central venous access Age >= 75 History of VTE Family history of VTE Factor V Leiden Prothrombin [id number] Lupus anticoagulant Anticardiolipin antibodies Elevated serum homocysteine Heparin-induced thrombocytopenia Other congenital or acquired thrombophilia Stroke (< 1 month) Elective arthroplasty Hip, pelvis, or leg fracture Acute spinal cord injury (< 1 month) Prophylaxis Regimen Total Risk Factor Score Risk Level Prophylaxis Regimen 0-1 Low Early ambulation 2 Moderate Order ONE of the following: *Sequential Compression Device (SCD) *Heparin 5000 units SQ BID 3-4 Higher Order ONE of the following medications: *Heparin 5000 units SQ TID *Enoxaparin/Lovenox 40 mg SQ daily (WT < 150 kg, CrCl > 30 mL/min) *Enoxaparin/Lovenox 30 mg SQ daily (WT < 150 kg, CrCl > 10-29 mL/min) *Enoxaparin/Lovenox 30 mg SQ BID (WT < 150 kg, CrCl > 30 mL/min) AND/OR *Sequential Compression Device (SCD) 5 or more Highest Order ONE of the following medications: *Heparin 5000 units SQ TID (Preferred with Epidurals) *Enoxaparin/Lovenox 40 mg SQ daily (WT < 150 kg, CrCl > 30 mL/min) *Enoxaparin/Lovenox 30 mg SQ daily (WT < 150 kg, CrCl > 10-29 mL/min) *Enoxaparin/Lovenox 30 mg SQ BID (WT < 150 kg, CrCl > 30 mL/min) AND *Sequential Compression Device (SCD) Assessment and Plan Problem List: (1) Non-STEMI (non-ST elevated myocardial infarction) ICD Codes: I21.4 - Non-ST elevation (NSTEMI) myocardial infarction Status: Acute Plan: Heparin drip initiated. Topical nitroglycerin. Tylenol as needed. Aspirin administered. Cardiology consult. Continue beta ceci. Patient currently pain free. (2) CAD (coronary artery disease) ICD Codes: I25.10 - Atherosclerotic heart disease of [place] coronary artery without angina pectoris Status: Chronic Plan: Stent reportedly placed in 2010. Last heart catheterization apparently 2010 which revealed patent stent in LAD with 30-40% stenosis and some other portions of LAD medical management elected at that time. Negative adenosine thallium stress test in July 2015. (3) GERD (gastroesophageal reflux disease) ICD Codes: K21.9 - Gastro-esophageal reflux disease without esophagitis Status: Chronic Plan: ppi (4) HTN (hypertension) ICD Codes: I10 - Essential (primary) hypertension Status: Chronic Plan: Continue medication (5) Hypothyroidism ICD Codes: E03.9 - Hypothyroidism, unspecified Status: Chronic Plan: Continue medication (6) PVD (peripheral vascular disease) ICD Codes: I73.9 - Peripheral vascular disease, unspecified Status: Chronic Plan: Continue medication. (7) Hyperlipidemia ICD Codes: E78.5 - Hyperlipidemia, unspecified Status: Acute Plan: Continue medication. Code Status full Discussed Condition With Patient, nurse, ER provider Physician Certification 2 Midnight Certification Type: Admission for Inpatient Services Order for Inpatient Services The services are ordered in accordance with Medicare regulations or non- Medicare payer requirements, as applicable. In the case of services not specified as inpatient-only, they are appropriately provided as inpatient services in accordance with the 2-midnight benchmark. Estimated LOS (days): 2 days is the estimated time the patient will need to remain in the hospital, assuming treatment plan goals are met and no additional complications. Post-Hospital Plan: Home Jackson Banks MD PhD Mar 26, 2017 20:16
[2017-03-26] MEDS ORDERED: ONDANSETRON HCL 4 MG/2 ML VIAL IV PUSH PRN (20:30)
[2017-03-26] MEDS ORDERED: ACETAMINOPHEN 500 MG CPLT PO PRN (20:30)
[2017-03-26] MEDS ORDERED: MORPHINE SULFATE 2 MG/ML INJ IV PRN ×2 (20:45→21:15)
[2017-03-26] MEDS: SODIUM CHLORIDE 0.9% FLUSH 10 ML FLUSH IV FLUSH SCH (21:16)
[2017-03-26 21:34] LABS: INTERNATIONAL NORMALIZED RATIO 1.3 RATIO; PROTHROMBIN TIME - PATIENT 12.8 SEC (9.8-11.6)
[2017-03-26 21:43] LABS: TROPONIN I 0.55 NG/ML (0.02-0.05)
[2017-03-26] MEDS: NITROGLYCERIN 2% OINT 1 GM PACKET TOP SCH (23:14)
[2017-03-26] MEDS: METOPROLOL TARTRATE 25 MG TAB PO SCH (23:14)
[2017-03-27] VITALS (9 sets, daily range): BP systolic 118–168; BP diastolic 57–75; PULSE 51–87; RESP 18–22; TEMP 97.3–99.4; O2SAT 93–96
[2017-03-27 03:29] LABS: TROPONIN I 0.47 NG/ML (0.02-0.05)
[2017-03-27] MEDS: NITROGLYCERIN 2% OINT 1 GM PACKET TOP SCH ×3 (05:58→18:00)
[2017-03-27] MEDS: ASPIRIN 81 MG CHEW TAB PO SCH (08:00)
[2017-03-27] MEDS: SODIUM CHLORIDE 0.9% FLUSH 10 ML FLUSH IV FLUSH SCH ×2 (08:00→21:28)
[2017-03-27] MEDS: PANTOPRAZOLE SOD 40 MG DELAYED RELEASE TAB PO SCH (08:00)
[2017-03-27] MEDS: METOPROLOL TARTRATE 25 MG TAB PO SCH ×2 (08:00→21:28)
--- NOTE | 2017-03-27 08:03 | MB ---
cc: MAUREEN TORRES MD DATE OF CONSULTATION 03/27/2017 HISTORY This is an 89-year-old gentleman who presents to the hospital with complaints of epigastric pain. He has a history of coronary artery disease with stent implantation in the distant past. He also has a history of dementia and history is somewhat difficult to obtain as some of his history is obtained from his chart as well as Dr. Banks who saw him in the evening last night. He has had midepigastric discomfort which has been off and on. Apparently has been present for several years, but somewhat worse lately. He has had some nausea and vomiting, but no coffee grounds or adam blood was noted. He has had no change in his bowel habits. He denies any chest pain or shortness of breath. We have been asked to see him because his troponin is elevated initially at 0.64 and serial determinations have remained flat in the range of 0.57, 0.55 and 0.47. Pertinent laboratory examination does demonstrate an increase in his LFTs with an AST and ALT four times normal. He does have mild renal insufficiency with a creatinine of 2.7. At this point, he is comfortable and in no distress. PAST MEDICAL HISTORY His past medical history has otherwise been significant for: 1. Episodes of paroxysmal supraventricular tachycardia which has not recurred recently. 2. He has also had a vague history of peripheral vascular disease. MEDICATIONS Medications at home have included: 1. Metoprolol 12.5 mg twice daily 2. Aspirin 81 mg daily 3. Propafenone 150 as needed 4. Lisinopril 5 mg daily 5. Clopidogrel 75 mg daily 6. Simvastatin 40 mg daily 7. Levothyroxine 50 mcg daily 8. Cilostazol 50 daily 9. Vitamins ALLERGIES PENICILLIN SOCIAL HISTORY The patient does not smoke. He does not use alcohol or recreational drugs. PHYSICAL EXAMINATION He is awake and alert. He is in no acute distress. VITAL SIGNS: His blood pressure is 120/70. NECK: There is no neck vein distension. LUNGS: Lungs are essentially clear. CARDIOVASCULAR: Exam reveals a regular rate and rhythm. There is no significant murmur, no gallop is noted. ABDOMEN: Soft. There is some vague tenderness in the midepigastrium. No guarding or rebound is present. Bowel sounds are normal. EXTREMITIES: Reveal no edema. ASSESSMENT The patient has had elevated troponins, but no evidence to suggest chest pain or acute ischemia. His electrocardiogram is normal. I have ordered a Lexiscan as he has had similar presentation in the past with no evidence for ischemia. I have also ordered an echocardiogram to evaluate his LV function which may be a cause for his elevated troponins. It could well be demand mediated. There is evidence for gallbladder sludge, but no acute cholecystitis and likely the patient may have problems with acute gastritis. I have stopped his heparin drip. I think it would be prudent to continue his Plavix until his Lexiscan results are known and if they are negative, then probably would discontinue that as well. MD BELEM Nascimento/JULIO CESAR /7:10 AM 7:19 AM
[2017-03-27 09:51] LABS: AUTOMATED NEUTROPHIL # 22.8 TH/MM3 (1.8-7.7); BASOPHIL % 0.1 % (0.0-2.0); HEMOGLOBIN 16.2 GM/DL (13.0-17.0); LYMPH % 6.3 % (9.0-44.0); LYMPHOCYTE # 1.7 TH/MM3 (1.0-4.8); MEAN CELL VOLUME 93.8 FL (80.0-100.0); MEAN CORPUSCULAR HEMOGLOBIN 30.9 PG (27.0-34.0); MEAN PLATELET VOLUME 10.2 FL (7.0-11.0); MONO % 5.9 % (0.0-8.0); MONOCYTE # 1.5 TH/MM3 (0-0.9); NEUT % 87.7 % (16.0-70.0); PLATELET COUNT 197 TH/MM3 (150-450); RED BLOOD COUNT 5.22 MIL/MM3 (4.50-5.90); RED CELL DISTRIBUTION WIDTH 14.3 % (11.6-17.2)
[2017-03-27 10:11] LABS: ALBUMIN 3.6 GM/DL (3.4-5.0); AST (GOT) 126 U/L (15-37); BICARBONATE 21.1 MEQ/L (21.0-32.0); BLOOD UREA NITROGEN 28 MG/DL (7-18); CALCIUM 9.6 MG/DL (8.5-10.1); CHLORIDE 107 MEQ/L (98-107); CREATININE 2.24 MG/DL (0.60-1.30); GLOMERULAR FILTRATION RATE 28 ML/MIN (>89); GLUCOSE,RANDOM 104 MG/DL (74-106); SODIUM (NA) 140 MEQ/L (136-145)
[2017-03-27 10:13] LABS: CHOLESTEROL 83 MG/DL (120-200); TRIGLYCERIDES 54 MG/DL (42-150)
[2017-03-27 10:17] LABS: ALKALINE PHOSPHATASE 212 U/L (45-117); ALT (GPT) 210 U/L (12-78); CHOLESTEROL/ HDL RATIO 1.37 RATIO; HDL CHOLESTEROL 60.5 MG/DL (40.0-60.0); LDL CHOLESTEROL 12 MG/DL (0-99); TOTAL BILIRUBIN ADULT 2.8 MG/DL (0.2-1.0); TOTAL PROTEIN 7.6 GM/DL (6.4-8.2)
--- NOTE | 2017-03-27 11:59 | HHI.PR ---
Subjective Remarks pt sitting on edge bed poor historian sounds like mostly epigastric type pain when he eats has had some constipation no cp vomiting was reported. Objective Vitals dementia heart reg lung cta abd s/nt/nabs ext no edema Vital Signs Date Time Temp Pulse Resp B/P (MAP) Pulse Ox O2 Delivery O2 Flow Rate FiO2 03/27/17 08:30 Room Air 03/27/17 08:00 98.1 56 18 168/75 (106) 95 03/27/17 07:43 58 03/27/17 04:00 97.4 70 19 118/57 (77) 94 03/27/17 03:47 51 03/27/17 00:18 Room Air 03/27/17 00:00 99.4 67 21 135/63 (87) 95 03/26/17 23:47 72 03/26/17 20:00 97.4 79 20 148/70 (96) 93 03/26/17 19:33 18 03/26/17 18:30 68 24 186/80 (115) 97 Room Air 03/26/17 17:32 65 12 213/78 (123) 97 Room Air 03/26/17 17:00 68 17 192/80 (117) 97 Room Air 03/26/17 16:38 97 Room Air 03/26/17 16:30 68 17 193/79 (117) 98 Room Air 03/26/17 15:27 97.8 90 14 185/84 (117) 93 Room Air Result Diagram: 03/27/17 0853 03/27/17 0853 Imaging Last 72 hours Impressions Gall Bladder Ultrasound 03/26/17 1557 Signed Impressions: Service Date/Time: Sunday, March 26, 2017 16:53 - CONCLUSION: 1. Gallbladder sludge with gallbladder wall thickening without other features to suggest acute cholecystitis. Therefore, findings are somewhat nonspecific and likely chronic in etiology. HIDA scan may be performed if there is continued clinical concern regarding acute cholecystitis. 2. Increased cortical echogenicity of the right kidney consistent with some degree of medical renal disease. 3. Simple right renal cysts. Jonh Jordan MD A/P Problem List: (1) Abdominal pain ICD Codes: R10.9 - Unspecified abdominal pain Status: Acute Plan: 1. epigastric pain. vomiting. rising wbc and lft sludge in gallbladder but no stone in cbd on ct or u/s concern for choledocholithiasis. 2. elevated troponin. hx cad. r/o obstructive cad 3. a/ckd 3. probably dehydration 4. htn 5. hypothyroidism. plan seen by cardiology. sweetie today consult gi for worsening lft/abd pain. ?ercp will start abx and monitor npo and ivf dvt prophylaxis. (2) Acute worsening of stage 3 chronic kidney disease ICD Codes: N18.3 - Chronic kidney disease, stage 3 (moderate) Status: Acute (3) LFT elevation ICD Codes: R79.89 - Other specified abnormal findings of blood chemistry Status: Acute (4) CAD (coronary artery disease) ICD Codes: I25.10 - Atherosclerotic heart disease of [place] coronary artery without angina pectoris Status: Acute Plan: Stent reportedly placed in 2010. Last heart catheterization apparently 2010 which revealed patent stent in LAD with 30-40% stenosis and some other portions of LAD medical management elected at that time. Negative adenosine thallium stress test in July 2015. (5) GERD (gastroesophageal reflux disease) ICD Codes: K21.9 - Gastro-esophageal reflux disease without esophagitis Status: Chronic Plan: ppi (6) HTN (hypertension) ICD Codes: I10 - Essential (primary) hypertension Status: Chronic Plan: Continue medication (7) Hypothyroidism ICD Codes: E03.9 - Hypothyroidism, unspecified Status: Chronic Plan: Continue medication (8) PVD (peripheral vascular disease) ICD Codes: I73.9 - Peripheral vascular disease, unspecified Status: Chronic Plan: Continue medication. (9) Hyperlipidemia ICD Codes: E78.5 - Hyperlipidemia, unspecified Status: Chronic Plan: hold statin. lft elevated Ravi Gonzalez MD Mar 27, 2017 11:59
[2017-03-27] MEDS ORDERED: LEVOFLOXACIN 250 MG PREMIX INJ 50 ML IV SCH (12:00)
[2017-03-27] MEDS ORDERED: LEVOFLOXACIN 500 MG PREMIX INJ 100 ML IV ONE (13:00)
[2017-03-27] MEDS: SODIUM CHLOR 0.9% 1000 ML INJ 1,000 ML IV SCH ×2 (13:43→22:17)
[2017-03-27] MEDS: metroNIDAZOLE 500 MG INJ 100 ML IV SCH ×2 (13:44→21:27)
--- NOTE | 2017-03-27 13:47 | PD.CONS ---
HPI History of Present Illness This is a 89 year old male with hx dementia who presented with epigastric discomfort. He has had epigastric pain intermittently for the last 3 weeks. Denies relieving or exacerbating factors. Denies n/v, diarrhea, blood in stool, hx problems with gallbladder or liver. US showed some GB sludge. His WBC has been trending up. Going for lexiscan today. Denies ETOH. Never had EGD or colonoscopy. Pt is limited historian. (Marina Callahan) PFSH Past Medical History per EMR HTN CAD [place] CORONARY STENTS SVT CKD3 hypothyroid PVD GERD Past Surgical History eye surgery stent placement (Marina Callahan) Coded Allergies: penicillin G (Unverified Allergy, Severe, Anaphylaxis, 03/26/17) Family History noncontributory Social History denies toxic habits (Marina Callahan) Review of Systems Constitutional: DENIES: Night Sweats Endocrine: DENIES: Polydipsia Eyes: DENIES: Blurred vision Ears, nose, mouth, throat: DENIES: Hearing loss Respiratory: DENIES: Cough Cardiovascular: DENIES: Chest pain Gastrointestinal: COMPLAINS OF: Abdominal pain, DENIES: Black stools, Bloody stools, Constipation, Diarrhea, Nausea, Vomiting, Hematemesis Genitourinary: DENIES: Hematuria Musculoskeletal: DENIES: Joint Swelling Integumentary: DENIES: Jaundice Hematologic/lymphatic: DENIES: Bruising Neurologic: DENIES: Abnormal gait Psychiatric: DENIES: Anxiety (Marina Callahan) GI Exam Vitals I&O Vital Signs Date Time Temp Pulse Resp B/P (MAP) Pulse Ox O2 Delivery O2 Flow Rate FiO2 03/27/17 08:30 Room Air 03/27/17 08:00 98.1 56 18 168/75 (106) 95 03/27/17 07:43 58 03/27/17 04:00 97.4 70 19 118/57 (77) 94 03/27/17 03:47 51 03/27/17 00:18 Room Air 03/27/17 00:00 99.4 67 21 135/63 (87) 95 03/26/17 23:47 72 03/26/17 20:00 97.4 79 20 148/70 (96) 93 03/26/17 19:33 18 03/26/17 18:30 68 24 186/80 (115) 97 Room Air 03/26/17 17:32 65 12 213/78 (123) 97 Room Air 03/26/17 17:00 68 17 192/80 (117) 97 Room Air 03/26/17 16:38 97 Room Air 03/26/17 16:30 68 17 193/79 (117) 98 Room Air 03/26/17 15:27 97.8 90 14 185/84 (117) 93 Room Air I/O 03/26/17 03/26/17 03/26/17 03/27/17 03/27/17 03/27/17 07:00 15:00 23:00 07:00 15:00 23:00 Intake Total 57 ml Balance 57 ml Intake Oral 0 ml IV Total 57 ml # Voids 3 # Bowel Movements 0 Imaging Last Impressions Gall Bladder Ultrasound 03/26/17 1557 Signed Impressions: Service Date/Time: Sunday, March 26, 2017 16:53 - CONCLUSION: 1. Gallbladder sludge with gallbladder wall thickening without other features to suggest acute cholecystitis. Therefore, findings are somewhat nonspecific and likely chronic in etiology. HIDA scan may be performed if there is continued clinical concern regarding acute cholecystitis. 2. Increased cortical echogenicity of the right kidney consistent with some degree of medical renal disease. 3. Simple right renal cysts. Jonh Jordan MD Laboratory Test 03/26/17 16:50 03/26/17 19:20 03/26/17 20:55 03/26/17 21:10 White Blood Count 16.3 TH/MM3 Red Blood Count 5.27 MIL/MM3 Hemoglobin 16.6 GM/DL Hematocrit 48.5 % Mean Corpuscular Volume 92.1 FL Mean Corpuscular Hemoglobin 31.4 PG Mean Corpuscular Hemoglobin Concent 34.1 % Red Cell Distribution Width 13.7 % Platelet Count 190 TH/MM3 Mean Platelet Volume 10.2 FL Neutrophils (%) (Auto) 87.7 % Lymphocytes (%) (Auto) 4.6 % Monocytes (%) (Auto) 7.4 % Eosinophils (%) (Auto) 0.0 % Basophils (%) (Auto) 0.3 % Neutrophils # (Auto) 14.3 TH/MM3 Lymphocytes # (Auto) 0.7 TH/MM3 Monocytes # (Auto) 1.2 TH/MM3 Eosinophils # (Auto) 0.0 TH/MM3 Basophils # (Auto) 0.1 TH/MM3 CBC Comment AUTO DIFF Differential Comment AUTO DIFF CONFIRMED Red Cell Morphology Comment NORMAL Blood Urea Nitrogen 25 MG/DL Creatinine 2.07 MG/DL Random Glucose 132 MG/DL Total Protein 7.6 GM/DL Albumin 3.7 GM/DL Calcium Level 9.4 MG/DL Alkaline Phosphatase 186 U/L Aspartate Amino Transf (AST/SGOT) 206 U/L Alanine Aminotransferase (ALT/SGPT) 201 U/L Total Bilirubin 1.3 MG/DL Sodium Level 140 MEQ/L Potassium Level 4.7 MEQ/L Chloride Level 109 MEQ/L Carbon Dioxide Level 23.5 MEQ/L Anion Gap 8 MEQ/L Estimat Glomerular Filtration Rate 30 ML/MIN Troponin I 0.64 NG/ML 0.57 NG/ML 0.55 NG/ML Lipase 170 U/L Total Creatine Kinase 214 U/L Thyroid Stimulating Hormone 3rd Gen 0.335 uIU/ML Prothrombin Time 12.8 SEC Prothromb Time International Ratio 1.3 RATIO Activated Partial Thromboplast Time 29.0 SEC Test 03/27/17 02:48 03/27/17 06:57 03/27/17 08:53 Total Creatine Kinase 184 U/L Troponin I 0.47 NG/ML Activated Partial Thromboplast Time 77.3 SEC White Blood Count 26.0 TH/MM3 Red Blood Count 5.22 MIL/MM3 Hemoglobin 16.2 GM/DL Hematocrit 49.0 % Mean Corpuscular Volume 93.8 FL Mean Corpuscular Hemoglobin 30.9 PG Mean Corpuscular Hemoglobin Concent 33.0 % Red Cell Distribution Width 14.3 % Platelet Count 197 TH/MM3 Mean Platelet Volume 10.2 FL Neutrophils (%) (Auto) 87.7 % Lymphocytes (%) (Auto) 6.3 % Monocytes (%) (Auto) 5.9 % Eosinophils (%) (Auto) 0.0 % Basophils (%) (Auto) 0.1 % Neutrophils # (Auto) 22.8 TH/MM3 Lymphocytes # (Auto) 1.7 TH/MM3 Monocytes # (Auto) 1.5 TH/MM3 Eosinophils # (Auto) 0.0 TH/MM3 Basophils # (Auto) 0.0 TH/MM3 CBC Comment DIFF FINAL Differential Comment Blood Urea Nitrogen 28 MG/DL Creatinine 2.24 MG/DL Random Glucose 104 MG/DL Total Protein 7.6 GM/DL Albumin 3.6 GM/DL Calcium Level 9.6 MG/DL Alkaline Phosphatase 212 U/L Aspartate Amino Transf (AST/SGOT) 126 U/L Alanine Aminotransferase (ALT/SGPT) 210 U/L Total Bilirubin 2.8 MG/DL Sodium Level 140 MEQ/L Potassium Level 4.6 MEQ/L Chloride Level 107 MEQ/L Carbon Dioxide Level 21.1 MEQ/L Anion Gap 12 MEQ/L Estimat Glomerular Filtration Rate 28 ML/MIN Triglycerides Level 54 MG/DL Cholesterol Level 83 MG/DL LDL Cholesterol 12 MG/DL HDL Cholesterol 60.5 MG/DL Cholesterol/HDL Ratio 1.37 RATIO Physical Examination HEENT: PERRL; normocephalic; atraumatic; no jaundice. CHEST: CTA CARDIAC: RRR + murmur ABDOMEN: Soft, nondistended, RUQ and epigastric TTP; no hepatosplenomegaly; bowel sounds are present in all four quadrants. EXTREMITIES: No clubbing, cyanosis, or edema. SKIN: Normal; no rash; no jaundice. 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 trending up. US showed GB sludge. will get MRCP r/o obstruction bile duct. ?cholangitis - epigastric pain - also RUQ TTP on exam. has had 3 weeks, intermittently. imaging as above. if MRCP neg will consider EGD - leukocytosis - WBC trending up - NSTEMI, CKD per primary, cardiology following was on plavix at home PLAN - MRCP no contrast - if neg consider HIDA, EGD - monitor labs - supportive care - would need cardiac clearance for procedures - further recs to follow pt seen by myself and Dr Oneal and this note is written on his behalf (Marina Callahan) Physician Comments Agree with above assessment and plan . Check MRCP, will follow up with you. (Mikayla Oneal MD) Marina Callahan Mar 27, 2017 13:47 Mikayla Oneal MD Mar 27, 2017 14:29
--- NOTE | 2017-03-27 18:43 | RADRPT ---
EXAM DATE/TIME: 03/27/2017 17:44 [facility] COMPARISON: US ABDOMEN - GALLBLADDER, March 26, 2017, 16:53. CT ABDOMEN & PELVIS W/O CONTRAST, March 26, 017, 3:42. INDICATIONS : Obstruction. Abdominal pain. MEDICAL HISTORY : Hypertension. Renal failure, acute. SURGICAL HISTORY : Coronary artery stent. ENCOUNTER: Initial ACUITY: 1 day PAIN SCORE: 4/10 LOCATION: Right upper quadrant TECHNIQUE: Multiplanar, multisequence magnetic resonance imaging of the abdomen was performed. High-resolution 3D dataset was utilized to reconstruct maximum-intensity projection (MIP) images. FINDINGS: INTRAHEPATIC BILE DUCTS: Within normal limits. No significant anatomical variant is present. EXTRAHEPATIC BILE DUCTS: The common bile duct measures 5 mm No stone or filling defect is identified. GALLBLADDER: Distended with moderate diffuse wall thickening.-dependent stones and sludge. Mild surrounding edema. LIVER: Normal size and signal intensity. No concerning liver lesion is identified on this non-contrast exam. PANCREAS: 2 cm septated cystic mass in the uncinate. OTHER: Bilateral renal cysts. Right lung base atelectasis or infiltrate. CONCLUSION: Appearance consistent with acute cholecystitis. Small cystic mass in the uncinate of pancreas will require followup. Horace Whatley MD on March 27, 2017 at 18:36 Board Certified Radiologist. This report was verified electronically.
--- NOTE | 2017-03-27 22:27 | EKG ---
Date Performed: 03/27/2017 Time Performed: 04:41:56 PTAGE: 89 years EKG: Sinus bradycardia. Prolonged QT interval Left axis deviation Lateral T wave changes Abnorma l ECG PREVIOUS TRACING : 03/26/2017 20.54 Compared to prior tracing no significant change DOCTOR: Harvey Gallegos Interpretating Date/Time 03/27/2017 22:25:49
--- NOTE | 2017-03-27 23:01 | EKG ---
Date Performed: 03/26/2017 Time Performed: 20:54:48 PTAGE: 89 years EKG: Sinus rhythm WITH OCCASIONAL SUPRAVENTRICULAR PREMATURE COMPLEXES PATTERN CONSISTENT WITH PULMONARY DISEASE LEFT ANTERIOR FASCICULAR BLOCK MINIMAL ST DEPRESSION ABNORMAL ECG PREVIOUS TRACING : 03/26/2017 18.34 Compared to prior tracing no significant change DOCTOR: Harvey Gallegos Interpretating Date/Time 03/27/2017 23:01:17
--- NOTE | 2017-03-27 23:06 | EKG ---
Date Performed: 03/26/2017 Time Performed: 18:34:10 PTAGE: 89 years EKG: Sinus rhythm WITH OCCASIONAL SUPRAVENTRICULAR PREMATURE COMPLEXES PATTERN CONSISTENT WITH PULMONARY DISEASE LEFT ANTERIOR FASCICULAR BLOCK NONSPECIFIC T-WAVE ABNORMALITY ABNORMAL ECG PREVIOUS TRACING : 03/26/2017 16.15 Compared to prior tracing no significant change DOCTOR: Harvey Gallegos Interpretating Date/Time 03/27/2017 23:05:53
--- NOTE | 2017-03-27 23:15 | EKG ---
Date Performed: 03/26/2017 Time Performed: 16:15:39 PTAGE: 89 years EKG: Sinus rhythm LEFT ANTERIOR FASCICULAR BLOCK NONSPECIFIC T-WAVE ABNORMALITY ABNORMAL ECG PREVIOUS TRACING : 08/12/2015 20.51 Compared to prior tracing no significant change DOCTOR: Harvey Gallegos Interpretating Date/Time 03/27/2017 23:14:37
[2017-03-28] VITALS (11 sets, daily range): BP systolic 113–178; BP diastolic 61–96; PULSE 65–95; RESP 16–20; TEMP 97.6–98.3; O2SAT 94–99
[2017-03-28] MEDS: NITROGLYCERIN 2% OINT 1 GM PACKET TOP SCH ×2 (06:00)
[2017-03-28] MEDS: LEVOTHYROXINE SODIUM 50 MCG TAB PO SCH (06:00)
[2017-03-28] MEDS: metroNIDAZOLE 500 MG INJ 100 ML IV SCH ×3 (06:00→20:33)
--- NOTE | 2017-03-28 07:50 | PD.CARD.PN ---
Subjective Subjective Remarks Patient is doing well today. He denies any chest pain or shortness of breath. He denies any abdominal pain and states he was able to eat some yesterday with no nausea or worsening pain. Objective Medications Current Medications Medications (Trade) Dose Ordered Sig/Beto Route Start Time Stop Time Status Last Admin (NS Flush) 2 ml BID IV FLUSH 03/26/17 21:00 03/27/17 21:28 (NS Flush) 2 ml UNSCH PRN IV FLUSH 03/26/17 20:30 (Aspirin Chew) 162 mg DAILY PO 03/27/17 09:00 03/27/17 08:00 (Lopressor) 25 mg BID PO 03/26/17 21:00 03/27/17 21:28 (Nitroglycerin 2% Oint) 1 inch Q6HR TOP 03/27/17 00:00 03/28/17 00:00 (Tylenol) 500 mg Q4H PRN PO 03/26/17 20:30 (Protonix) 40 mg DAILY PO 03/27/17 09:00 03/27/17 08:00 (Zofran Inj) 4 mg Q6HR PRN IV PUSH 03/26/17 20:30 (Morphine Inj) 2 mg Q3H PRN IV 03/26/17 21:15 Metronidazole 100 ml @ 100 mls/hr Q8H IV 03/27/17 14:00 03/27/17 21:27 Sodium Chloride 1,000 ml @ 84 mls/hr [id number] IV 03/27/17 12:00 03/27/17 13:43 Levofloxacin/ Dextrose 50 ml @ 50 mls/hr Q24H IV 03/28/17 13:00 (Synthroid) 50 mcg DAILY@0600 PO 03/28/17 06:00 (Catapres) 0.1 mg Q6H PRN PO 03/27/17 12:00 Vital Signs / I&O Vital Signs Date Time Temp Pulse Resp B/P (MAP) Pulse Ox O2 Delivery O2 Flow Rate FiO2 03/28/17 04:00 97.6 69 20 136/61 (86) 97 03/28/17 04:00 Room Air 03/28/17 00:00 Room Air 03/28/17 00:00 97.6 65 20 139/70 (93) 95 03/27/17 23:50 65 03/27/17 20:48 21 03/27/17 20:00 Room Air 03/27/17 20:00 87 03/27/17 20:00 97.3 80 20 136/75 (95) 95 03/27/17 16:00 98.0 69 22 151/68 (95) 93 03/27/17 12:00 97.7 54 20 164/72 (102) 96 03/27/17 08:30 Room Air 03/27/17 08:00 98.1 56 18 168/75 (106) 95 I/O 03/27/17 03/27/17 03/27/17 03/28/17 03/28/17 03/28/17 07:00 15:00 23:00 07:00 15:00 23:00 Intake Total 57 ml 100 ml 524 ml Balance 57 ml 100 ml 524 ml Intake Oral 0 ml 0 ml 0 ml IV Total 57 ml 100 ml 524 ml # Voids 3 4 2 # Bowel Movements 0 1 Physical Exam GENERAL: Well-developed well-nourished. In no acute distress. NECK: No carotid bruits. No JVD. CARDIOVASCULAR: Regular rate and rhythm. Systolic murmur appreciated. RESPIRATORY: No accessory muscle use. Clear to auscultation. Breath sounds equal bilaterally. ABD: Nontender to light palpation. MUSCULOSKELETAL: No clubbing or cyanosis. No edema. NEUROLOGICAL: Awake and alert. Normal speech. Laboratory Laboratory Tests Test 03/27/17 08:53 White Blood Count 26.0 TH/MM3 Red Blood Count 5.22 MIL/MM3 Hemoglobin 16.2 GM/DL Hematocrit 49.0 % Mean Corpuscular Volume 93.8 FL Mean Corpuscular Hemoglobin 30.9 PG Mean Corpuscular Hemoglobin Concent 33.0 % Red Cell Distribution Width 14.3 % Platelet Count 197 TH/MM3 Mean Platelet Volume 10.2 FL Neutrophils (%) (Auto) 87.7 % Lymphocytes (%) (Auto) 6.3 % Monocytes (%) (Auto) 5.9 % Eosinophils (%) (Auto) 0.0 % Basophils (%) (Auto) 0.1 % Neutrophils # (Auto) 22.8 TH/MM3 Lymphocytes # (Auto) 1.7 TH/MM3 Monocytes # (Auto) 1.5 TH/MM3 Eosinophils # (Auto) 0.0 TH/MM3 Basophils # (Auto) 0.0 TH/MM3 CBC Comment DIFF FINAL Differential Comment Blood Urea Nitrogen 28 MG/DL Creatinine 2.24 MG/DL Random Glucose 104 MG/DL Total Protein 7.6 GM/DL Albumin 3.6 GM/DL Calcium Level 9.6 MG/DL Alkaline Phosphatase 212 U/L Aspartate Amino Transf (AST/SGOT) 126 U/L Alanine Aminotransferase (ALT/SGPT) 210 U/L Total Bilirubin 2.8 MG/DL Sodium Level 140 MEQ/L Potassium Level 4.6 MEQ/L Chloride Level 107 MEQ/L Carbon Dioxide Level 21.1 MEQ/L Anion Gap 12 MEQ/L Estimat Glomerular Filtration Rate 28 ML/MIN Triglycerides Level 54 MG/DL Cholesterol Level 83 MG/DL LDL Cholesterol 12 MG/DL HDL Cholesterol 60.5 MG/DL Cholesterol/HDL Ratio 1.37 RATIO Imaging Last Impressions Cholangiopancreatography MRI 03/27/17 0000 Signed Impressions: Service Date/Time: February 17:44 - CONCLUSION: Appearance consistent with acute cholecystitis. Small cystic mass in the uncinate of pancreas will require followup. Horace Whatley MD Gall Bladder Ultrasound 03/26/17 1557 Signed Impressions: Service Date/Time: Sunday, March 26, 2017 16:53 - CONCLUSION: 1. Gallbladder sludge with gallbladder wall thickening without other features to suggest acute cholecystitis. Therefore, findings are somewhat nonspecific and likely chronic in etiology. HIDA scan may be performed if there is continued clinical concern regarding acute cholecystitis. 2. Increased cortical echogenicity of the right kidney consistent with some degree of medical renal disease. 3. Simple right renal cysts. Jonh Jordan MD Assessment and Plan Assessment and Plan 89-year-old male with past medical history of CAD with stents in the past, dementia, paroxysmal SVT, possible PVD who presented for epigastric pain Elevated troponins: No chest pain to suggest acute ischemia. Lexiscan ordered. Check echocardiogram to assess LV function. Possibly demand mediated. Epigastric pain/elevated LFTs: MRCP suggestive of cholecystitis and Gen. surgery has been consulted. Maksim Gomez Mar 28, 2017 07:50
[2017-03-28] MEDS ORDERED: REGADENOSON INJ 0.4 MG/5 ML SYR ONE (08:30)
[2017-03-28 08:59] LABS: AUTOMATED NEUTROPHIL # 19.3 TH/MM3 (1.8-7.7); BASOPHIL % 0.1 % (0.0-2.0); HEMOGLOBIN 15.4 GM/DL (13.0-17.0); LYMPH % 3.2 % (9.0-44.0); LYMPHOCYTE # 0.7 TH/MM3 (1.0-4.8); MEAN CELL VOLUME 92.8 FL (80.0-100.0); MEAN CORPUSCULAR HEMOGLOBIN 31.1 PG (27.0-34.0); MEAN CORPUSCULAR HGB CONC 33.5 % (32.0-36.0); MEAN PLATELET VOLUME 10.2 FL (7.0-11.0); MONO % 4.9 % (0.0-8.0); NEUT % 91.8 % (16.0-70.0); PLATELET COUNT 154 TH/MM3 (150-450); RED BLOOD COUNT 4.95 MIL/MM3 (4.50-5.90); RED CELL DISTRIBUTION WIDTH 14.2 % (11.6-17.2); WHITE BLOOD COUNT 21.1 TH/MM3 (4.0-11.0)
[2017-03-28 09:27] LABS: ALBUMIN 3.1 GM/DL (3.4-5.0); BICARBONATE 22.9 MEQ/L (21.0-32.0); CALCIUM 9.2 MG/DL (8.5-10.1); CREATININE 2.09 MG/DL (0.60-1.30)
[2017-03-28 09:28] LABS: DIRECT BILIRUBIN ADULT 1.9 MG/DL (0.0-0.2)
[2017-03-28 09:31] LABS: INDIRECT BILIRUBIN 0.9 MG/DL (0.0-0.8); TOTAL BILIRUBIN ADULT 2.8 MG/DL (0.2-1.0); TOTAL PROTEIN 7.1 GM/DL (6.4-8.2)
--- NOTE | 2017-03-28 10:05 | PD.CONS ---
HPI Service General Surgery Consult Requested By Dr. Gonzalez Reason for Consult cholecystitis Primary Care Physician Unknown History of Present Illness 89 yo M admitted for epigastric pain and nausea. He is a poor historian and information is primarily obtained from the chart. He currently denies abdominal pain or nausea. He initially been evaluated in the emergency department with labs and imaging and there were no significant findings. He returned and was noted have leukocytosis as well as elevated liver function enzymes. Gallbladder ultrasound showed gallbladder wall thickening and sludge. He's had persistent LFT elevation and an MRCP was performed which showed gallbladder wall thickening, sludge, and mild edema around the gallbladder. He has a history of coronary artery disease and had some elevation of troponins. He is undergoing a Lexiscan this morning. He is not complaining of chest pain. Review of Systems ROS Limitations: Poor Historian Constitutional: DENIES: Fever, Chills Eyes: DENIES: Eye inflammation, Eye pain Cardiovascular: DENIES: Chest pain Gastrointestinal: DENIES: Abdominal pain, Nausea Past Family Social History Past Medical History 1) hypertension 2) coronary artery disease - History of [place] History of coronary stents: PCI to OM and LAD with Xience Stent August 2010 3) paroxysmal supraventricular tachycardia 4) chronic kidney disease, stage III 5) hypothyroidism 6) peripheral vascular disease 7) GERD Past Surgical History Cardiac stent placement not recent Reported Medications Reported Meds & Active Scripts Active Protonix (Pantoprazole Sodium) 40 Mg Tab 40 Mg PO DAILY Zofran (Ondansetron HCl) 4 Mg Tab 4 Mg PO Q6HR PRN Reported Vitamin B-12 ER (Cyanocobalamin) 2,000 Mcg Tab 5,000 Mcg PO DIRECTED Aleve PM (Naproxen Sodium-Diphenhydramine) 220-25 Mg Tab 1 Tab PO HS PRN Multiple Vitamin 1 Tab 1 Tab PO DAILY Aspirin 81 Mg Chew 81 Mg CHEW DAILY Metoprolol Tartrate 25 Mg Tab 25 Mg PO DAILY PRN Nitroglycerin SL (Nitroglycerin) 0.4 Mg Subl 0.4 Mg SL DIRECTED PRN ONE TABLET UNDER THE TONGUE NEEDED FOR CHEST PAIN, MAY REPEAT EVERY FIVE MINUTES FOR A TOTAL OF 3 DOSES OR CALL 911 IF NO RELIEF Clopidogrel (Clopidogrel Bisulfate) 75 Mg Tab 75 Mg PO DAILY Lisinopril 5 Mg Tab 5 Mg PO DAILY Simvastatin 40 Mg Tab 40 Mg PO HS Levothyroxine (Levothyroxine Sodium) 50 Mcg Tab 50 Mcg PO DAILY Allergies: Coded Allergies: penicillin G (Unverified Allergy, Severe, Anaphylaxis, 03/26/17) Active Ordered Medications Current Medications Medications (Trade) Dose Ordered Sig/Beto Route Start Time Stop Time Status Last Admin (NS Flush) 2 ml BID IV FLUSH 03/26/17 21:00 03/27/17 21:28 (NS Flush) 2 ml UNSCH PRN IV FLUSH 03/26/17 20:30 (Aspirin Chew) 162 mg DAILY PO 03/27/17 09:00 03/27/17 08:00 (Lopressor) 25 mg BID PO 03/26/17 21:00 03/27/17 21:28 (Nitroglycerin 2% Oint) 1 inch Q6HR TOP 03/27/17 00:00 03/28/17 00:00 (Tylenol) 500 mg Q4H PRN PO 03/26/17 20:30 (Protonix) 40 mg DAILY PO 03/27/17 09:00 03/27/17 08:00 (Zofran Inj) 4 mg Q6HR PRN IV PUSH 03/26/17 20:30 (Morphine Inj) 2 mg Q3H PRN IV 03/26/17 21:15 Metronidazole 100 ml @ 100 mls/hr Q8H IV 03/27/17 14:00 03/27/17 21:27 Sodium Chloride 1,000 ml @ 84 mls/hr [id number] IV 03/27/17 12:00 03/27/17 13:43 Levofloxacin/ Dextrose 50 ml @ 50 mls/hr Q24H IV 03/28/17 13:00 (Synthroid) 50 mcg DAILY@0600 PO 03/28/17 06:00 (Catapres) 0.1 mg Q6H PRN PO 03/27/17 12:00 Family History Noncontributory Social History He has a significant other. No alcohol tobacco or drug use. Physical Exam Vital Signs Vital Signs Date Time Temp Pulse Resp B/P (MAP) Pulse Ox O2 Delivery O2 Flow Rate FiO2 03/28/17 08:03 95 03/28/17 08:00 97.7 78 20 178/76 (110) 95 03/28/17 04:00 97.6 69 20 136/61 (86) 97 03/28/17 04:00 Room Air 03/28/17 00:00 Room Air 03/28/17 00:00 97.6 65 20 139/70 (93) 95 03/27/17 23:50 65 03/27/17 20:48 21 03/27/17 20:00 Room Air 03/27/17 20:00 87 03/27/17 20:00 97.3 80 20 136/75 (95) 95 03/27/17 16:00 98.0 69 22 151/68 (95) 93 03/27/17 12:00 97.7 54 20 164/72 (102) 96 Physical Exam GENERAL: Awake and alert. No acute distress. Cooperative. Elderly and frail. HEAD: Normocephalic. Atraumatic. EYES: Pupils equal round and reactive to light bilaterally. No scleral icterus. CHEST: Lungs clear to auscultation bilaterally with no wheezing or rhonchi. No respiratory distress. CARDIOVASCULAR: Regular rate and rhythm. ABDOMEN: Soft nontender. Ham sign is negative. EXTREMITIES: No cyanosis or edema. SKIN: Warm, dry, nonjaundiced. Laboratory Laboratory Tests Test 03/28/17 07:40 White Blood Count 21.1 Red Blood Count 4.95 Hemoglobin 15.4 Hematocrit 46.0 Mean Corpuscular Volume 92.8 Mean Corpuscular Hemoglobin 31.1 Mean Corpuscular Hemoglobin Concent 33.5 Red Cell Distribution Width 14.2 Platelet Count 154 Mean Platelet Volume 10.2 Neutrophils (%) (Auto) 91.8 Lymphocytes (%) (Auto) 3.2 Monocytes (%) (Auto) 4.9 Eosinophils (%) (Auto) 0.0 Basophils (%) (Auto) 0.1 Neutrophils # (Auto) 19.3 Lymphocytes # (Auto) 0.7 Monocytes # (Auto) 1.0 Eosinophils # (Auto) 0.0 Basophils # (Auto) 0.0 CBC Comment DIFF FINAL Differential Comment Blood Urea Nitrogen 35 Creatinine 2.09 Random Glucose 97 Total Protein 7.1 Albumin 3.1 Calcium Level 9.2 Alkaline Phosphatase 184 Aspartate Amino Transf (AST/SGOT) 52 Alanine Aminotransferase (ALT/SGPT) 118 Total Bilirubin 2.8 Direct Bilirubin 1.9 Sodium Level 140 Potassium Level 4.2 Chloride Level 107 Carbon Dioxide Level 22.9 Anion Gap 10 Estimat Glomerular Filtration Rate 30 Indirect Bilirubin 0.9 Result Diagram: 03/28/17 0740 03/28/17 0740 Imaging Last Impressions Cholangiopancreatography MRI 03/27/17 0000 Signed Impressions: Service Date/Time: February 17:44 - CONCLUSION: Appearance consistent with acute cholecystitis. Small cystic mass in the uncinate of pancreas will require followup. Horace Whatley MD Gall Bladder Ultrasound 03/26/17 1557 Signed Impressions: Service Date/Time: Sunday, March 26, 2017 16:53 - CONCLUSION: 1. Gallbladder sludge with gallbladder wall thickening without other features to suggest acute cholecystitis. Therefore, findings are somewhat nonspecific and likely chronic in etiology. HIDA scan may be performed if there is continued clinical concern regarding acute cholecystitis. 2. Increased cortical echogenicity of the right kidney consistent with some degree of medical renal disease. 3. Simple right renal cysts. Jonh Jordan MD Assessment and Plan Assessment and Plan 89-year-old male with coronary artery disease and chronic kidney disease presents with epigastric pain and acute cholecystitis on imaging. WBC elevated , vitals and clinical exam stable. Liver function enzymes are somewhat elevated although MRCP does not show any obstruction the common bile duct, although there can be a false negative. Case discussed with Dr. Martínez and there not currently plans for ERCP. Due to his age, frailty, and multiple medical comorbidities I will request a cholecystostomy tube. This would also allow cholangiogram after a few days to evaluate the common duct. Case discussed with Dr. Martínez and Dr. Gonzalez. RealHuasm MD Mar 28, 2017 10:05
--- NOTE | 2017-03-28 10:12 | RADRPT ---
EXAM DATE/TIME: 03/27/2017 12:19 [facility] COMPARISON: MYOCARDIAL PERF PHARM SPECT, GATED W/EF, August 14, 2015, 13:15. INDICATIONS : Epigastric pain. Coronary artery disease. DOSE: 32.2 mCi Tc99m Myoview at stress. 32.8 mCi Tc99m Myoview at rest. 0.4 mg Lexiscan STRESS SYMPTOMS: Stomach pain. EJECTION FRACTION: > 70% MEDICAL HISTORY : Myocardial infarction. Hypercholesterolemia. Hypertension. GERD. Renal insufficiency. SURGICAL HISTORY : Coronary artery stent. ENCOUNTER: Initial ACUITY: 2 days PAIN SCALE: 3/10 LOCATION: Epigastric. TECHNIQUE: The patient underwent pharmacologic stress with infusion of prescribed dose. Continuous ECG tracing was monitored during stress. Gated SPECT imaging was performed after stress and conventional SPECT i maging was performed at rest. The examination was performed on a SPECT/CT scanner, both attenuation and non-corrected datasets were reviewed. FINDINGS: DISTRIBUTION: The maximum perfused segment at stress is in the anterior wall. PERFUSION STUDY: The pattern of perfusion at stress is within normal limits. GATED STUDY: There is intact wall motion and thickening without hypokinetic or dyskinetic segments. CONCLUSION: No evidence of fixed or reversible perfusion abnormalities. Normal wall motion and ejection fraction. RISK CATEGORY: Low (<1% Annual Mortality Rate) Axel Aldrich MD on March 28, 2017 at 10:09 Board Certified Radiologist. This report was verified electronically.
--- NOTE | 2017-03-28 10:24 | HHI.PR ---
Subjective Remarks doing ok. no vomiting Objective Vitals heart reg lung cta abd s/nt/nabs ext no edema Vital Signs Date Time Temp Pulse Resp B/P (MAP) Pulse Ox O2 Delivery O2 Flow Rate FiO2 03/28/17 08:03 95 03/28/17 08:00 97.7 78 20 178/76 (110) 95 03/28/17 04:00 97.6 69 20 136/61 (86) 97 03/28/17 04:00 Room Air 03/28/17 00:00 Room Air 03/28/17 00:00 97.6 65 20 139/70 (93) 95 03/27/17 23:50 65 03/27/17 20:48 21 03/27/17 20:00 Room Air 03/27/17 20:00 87 03/27/17 20:00 97.3 80 20 136/75 (95) 95 03/27/17 16:00 98.0 69 22 151/68 (95) 93 03/27/17 12:00 97.7 54 20 164/72 (102) 96 Result Diagram: 03/28/17 0740 03/28/17 0740 Imaging Last 72 hours Impressions Gall Bladder Ultrasound 03/26/17 1557 Signed Impressions: Service Date/Time: Sunday, March 26, 2017 16:53 - CONCLUSION: 1. Gallbladder sludge with gallbladder wall thickening without other features to suggest acute cholecystitis. Therefore, findings are somewhat nonspecific and likely chronic in etiology. HIDA scan may be performed if there is continued clinical concern regarding acute cholecystitis. 2. Increased cortical echogenicity of the right kidney consistent with some degree of medical renal disease. 3. Simple right renal cysts. Jonh Jordan MD A/P Problem List: (1) Abdominal pain ICD Codes: R10.9 - Unspecified abdominal pain Status: Acute Plan: 1. epigastric pain. vomiting. rising wbc and lft sludge in gallbladder but no stone in cbd . probably cholecystitis. ?passed sludge 2. elevated troponin. hx cad. lexiscan neg for ischemia 3. a/ckd 3. probably dehydration 4. htn 5. hypothyroidism. plan discussed with dr Noble. will plan for IR consult and cholecystostomy tube cont ivf cont iv abx PT (2) Acute worsening of stage 3 chronic kidney disease ICD Codes: N18.3 - Chronic kidney disease, stage 3 (moderate) Status: Acute (3) LFT elevation ICD Codes: R79.89 - Other specified abnormal findings of blood chemistry Status: Acute (4) CAD (coronary artery disease) ICD Codes: I25.10 - Atherosclerotic heart disease of [place] coronary artery without angina pectoris Status: Acute Plan: Stent reportedly placed in 2010. Last heart catheterization apparently 2010 which revealed patent stent in LAD with 30-40% stenosis and some other portions of LAD medical management elected at that time. Negative adenosine thallium stress test in July 2015. (5) GERD (gastroesophageal reflux disease) ICD Codes: K21.9 - Gastro-esophageal reflux disease without esophagitis Status: Chronic Plan: ppi (6) HTN (hypertension) ICD Codes: I10 - Essential (primary) hypertension Status: Chronic Plan: Continue medication (7) Hypothyroidism ICD Codes: E03.9 - Hypothyroidism, unspecified Status: Chronic Plan: Continue medication (8) PVD (peripheral vascular disease) ICD Codes: I73.9 - Peripheral vascular disease, unspecified Status: Chronic Plan: Continue medication. (9) Hyperlipidemia ICD Codes: E78.5 - Hyperlipidemia, unspecified Status: Chronic Plan: hold statin. lft elevated Ravi Gonzalez MD Mar 28, 2017 10:24
[2017-03-28] MEDS: ASPIRIN 81 MG CHEW TAB PO SCH (10:28)
[2017-03-28] MEDS: PANTOPRAZOLE SOD 40 MG DELAYED RELEASE TAB PO SCH (10:28)
[2017-03-28] MEDS: METOPROLOL TARTRATE 25 MG TAB PO SCH ×2 (10:28→20:33)
[2017-03-28] MEDS: SODIUM CHLORIDE 0.9% FLUSH 10 ML FLUSH IV FLUSH SCH ×2 (10:29→20:33)
[2017-03-28] MEDS: SODIUM CHLOR 0.9% 1000 ML INJ 1,000 ML IV SCH ×2 (10:31→23:45)
[2017-03-28 12:19] LABS: INTERNATIONAL NORMALIZED RATIO 1.3 RATIO; PROTHROMBIN TIME - PATIENT 13.6 SEC (9.8-11.6)
[2017-03-28] MEDS: LEVOFLOXACIN 250 MG PREMIX INJ 50 ML IV SCH (12:45)
--- NOTE | 2017-03-28 13:55 | PD.CARD.PN ---
Subjective Subjective Remarks Perfusion scan shows no evidence of ischemia. Troponin elevation demand mediated. Low risk for surgery if needed from CV standpoint. Objective Medications Current Medications Medications (Trade) Dose Ordered Sig/Beto Route Start Time Stop Time Status Last Admin (NS Flush) 2 ml BID IV FLUSH 03/26/17 21:00 03/28/17 10:29 (NS Flush) 2 ml UNSCH PRN IV FLUSH 03/26/17 20:30 (Aspirin Chew) 162 mg DAILY PO 03/27/17 09:00 03/28/17 10:28 (Lopressor) 25 mg BID PO 03/26/17 21:00 03/28/17 10:28 (Tylenol) 500 mg Q4H PRN PO 03/26/17 20:30 (Protonix) 40 mg DAILY PO 03/27/17 09:00 03/28/17 10:28 (Zofran Inj) 4 mg Q6HR PRN IV PUSH 03/26/17 20:30 (Morphine Inj) 2 mg Q3H PRN IV 03/26/17 21:15 Metronidazole 100 ml @ 100 mls/hr Q8H IV 03/27/17 14:00 03/27/17 21:27 Sodium Chloride 1,000 ml @ 84 mls/hr [id number] IV 03/27/17 12:00 03/28/17 10:31 Levofloxacin/ Dextrose 50 ml @ 50 mls/hr Q24H IV 03/28/17 13:00 03/28/17 12:45 (Synthroid) 50 mcg DAILY@0600 PO 03/28/17 06:00 (Catapres) 0.1 mg Q6H PRN PO 03/27/17 12:00 Vital Signs / I&O Vital Signs Date Time Temp Pulse Resp B/P (MAP) Pulse Ox O2 Delivery O2 Flow Rate FiO2 03/28/17 11:20 Room Air 03/28/17 08:03 95 03/28/17 08:00 97.7 78 20 178/76 (110) 95 03/28/17 04:00 97.6 69 20 136/61 (86) 97 03/28/17 04:00 Room Air 03/28/17 00:00 Room Air 03/28/17 00:00 97.6 65 20 139/70 (93) 95 12/28/17 23:50 65 03/27/17 20:48 21 03/27/17 20:00 Room Air 03/27/17 20:00 87 03/27/17 20:00 97.3 80 20 136/75 (95) 95 03/27/17 16:00 98.0 69 22 151/68 (95) 93 I/O 03/27/17 03/27/17 03/27/17 03/28/17 03/28/17 03/28/17 07:00 15:00 23:00 07:00 15:00 23:00 Intake Total 57 ml 100 ml 524 ml Balance 57 ml 100 ml 524 ml Intake Oral 0 ml 0 ml 0 ml IV Total 57 ml 100 ml 524 ml # Voids 3 4 2 # Bowel Movements 0 1 Laboratory Laboratory Tests Test 03/28/17 07:40 03/28/17 11:48 White Blood Count 21.1 TH/MM3 Red Blood Count 4.95 MIL/MM3 Hemoglobin 15.4 GM/DL Hematocrit 46.0 % Mean Corpuscular Volume 92.8 FL Mean Corpuscular Hemoglobin 31.1 PG Mean Corpuscular Hemoglobin Concent 33.5 % Red Cell Distribution Width 14.2 % Platelet Count 154 TH/MM3 Mean Platelet Volume 10.2 FL Neutrophils (%) (Auto) 91.8 % Lymphocytes (%) (Auto) 3.2 % Monocytes (%) (Auto) 4.9 % Eosinophils (%) (Auto) 0.0 % Basophils (%) (Auto) 0.1 % Neutrophils # (Auto) 19.3 TH/MM3 Lymphocytes # (Auto) 0.7 TH/MM3 Monocytes # (Auto) 1.0 TH/MM3 Eosinophils # (Auto) 0.0 TH/MM3 Basophils # (Auto) 0.0 TH/MM3 CBC Comment DIFF FINAL Differential Comment Blood Urea Nitrogen 35 MG/DL Creatinine 2.09 MG/DL Random Glucose 97 MG/DL Total Protein 7.1 GM/DL Albumin 3.1 GM/DL Calcium Level 9.2 MG/DL Alkaline Phosphatase 184 U/L Aspartate Amino Transf (AST/SGOT) 52 U/L Alanine Aminotransferase (ALT/SGPT) 118 U/L Total Bilirubin 2.8 MG/DL Direct Bilirubin 1.9 MG/DL Sodium Level 140 MEQ/L Potassium Level 4.2 MEQ/L Chloride Level 107 MEQ/L Carbon Dioxide Level 22.9 MEQ/L Anion Gap 10 MEQ/L Estimat Glomerular Filtration Rate 30 ML/MIN Indirect Bilirubin 0.9 MG/DL Prothrombin Time 13.6 SEC Prothromb Time International Ratio 1.3 RATIO Activated Partial Thromboplast Time 33.1 SEC Mika Ricardo MD Mar 28, 2017 13:55
--- NOTE | 2017-03-28 14:28 | HHI.GIFU ---
Subjective Remarks Pt resting in bed in NAD. No complaints. going for cholecystostomy tube (Marina Callahan) Objective Vitals I&O Vital Signs Date Time Temp Pulse Resp B/P (MAP) Pulse Ox O2 Delivery O2 Flow Rate FiO2 03/28/17 11:20 Room Air 03/28/17 08:03 95 03/28/17 08:00 97.7 78 20 178/76 (110) 95 03/28/17 04:00 97.6 69 20 136/61 (86) 97 03/28/17 04:00 Room Air 03/28/17 00:00 Room Air 03/28/17 00:00 97.6 65 20 139/70 (93) 95 03/27/17 23:50 65 03/27/17 20:48 21 03/27/17 20:00 Room Air 03/27/17 20:00 87 03/27/17 20:00 97.3 80 20 136/75 (95) 95 03/27/17 16:00 98.0 69 22 151/68 (95) 93 I/O 03/27/17 03/27/17 03/27/17 03/28/17 03/28/17 03/28/17 07:00 15:00 23:00 07:00 15:00 23:00 Intake Total 57 ml 100 ml 524 ml Balance 57 ml 100 ml 524 ml Intake Oral 0 ml 0 ml 0 ml IV Total 57 ml 100 ml 524 ml # Voids 3 4 2 # Bowel Movements 0 1 Laboratory Laboratory Tests Test 03/28/17 07:40 03/28/17 11:48 White Blood Count 21.1 Red Blood Count 4.95 Hemoglobin 15.4 Hematocrit 46.0 Mean Corpuscular Volume 92.8 Mean Corpuscular Hemoglobin 31.1 Mean Corpuscular Hemoglobin Concent 33.5 Red Cell Distribution Width 14.2 Platelet Count 154 Mean Platelet Volume 10.2 Neutrophils (%) (Auto) 91.8 Lymphocytes (%) (Auto) 3.2 Monocytes (%) (Auto) 4.9 Eosinophils (%) (Auto) 0.0 Basophils (%) (Auto) 0.1 Neutrophils # (Auto) 19.3 Lymphocytes # (Auto) 0.7 Monocytes # (Auto) 1.0 Eosinophils # (Auto) 0.0 Basophils # (Auto) 0.0 CBC Comment DIFF FINAL Differential Comment Blood Urea Nitrogen 35 Creatinine 2.09 Random Glucose 97 Total Protein 7.1 Albumin 3.1 Calcium Level 9.2 Alkaline Phosphatase 184 Aspartate Amino Transf (AST/SGOT) 52 Alanine Aminotransferase (ALT/SGPT) 118 Total Bilirubin 2.8 Direct Bilirubin 1.9 Sodium Level 140 Potassium Level 4.2 Chloride Level 107 Carbon Dioxide Level 22.9 Anion Gap 10 Estimat Glomerular Filtration Rate 30 Indirect Bilirubin 0.9 Prothrombin Time 13.6 Prothromb Time International Ratio 1.3 Activated Partial Thromboplast Time 33.1 Imaging Last Impressions Myocardial Perfusion Scan Nuc Med 03/27/17 0000 Signed Impressions: Service Date/Time: February 12:19 - CONCLUSION: No evidence of fixed or reversible perfusion abnormalities. Normal wall motion and ejection fraction. RISK CATEGORY: Low (<1%% Annual Mortality Rate) Axel Aldrich MD Cholangiopancreatography MRI 03/27/17 0000 Signed Impressions: Service Date/Time: February 17:44 - CONCLUSION: Appearance consistent with acute cholecystitis. Small cystic mass in the uncinate of pancreas will require followup. Horace Whatley MD Gall Bladder Ultrasound 03/26/17 1557 Signed Impressions: Service Date/Time: Sunday, March 26, 2017 16:53 - CONCLUSION: 1. Gallbladder sludge with gallbladder wall thickening without other features to suggest acute cholecystitis. Therefore, findings are somewhat nonspecific and likely chronic in etiology. HIDA scan may be performed if there is continued clinical concern regarding acute cholecystitis. 2. Increased cortical echogenicity of the right kidney consistent with some degree of medical renal disease. 3. Simple right renal cysts. Jonh Jordan MD Physical Exam HEENT: PERRL; normocephalic; atraumatic; no jaundice. CHEST: CTA CARDIAC: RRR +murmur ABDOMEN: Soft, nondistended, nontender; no hepatosplenomegaly; bowel sounds are present in all four quadrants. EXTREMITIES: No clubbing, cyanosis, or edema. SKIN: Normal; no rash; no jaundice. COOK SEAFOOD: alert (Marina Callahan) Assessment and Plan Plan ASSESSMENT - elev LFTs, abd pain - cholecystitis per imaging. LFTs mild decrease today. pain improved. US showed GB sludge. MRCP showed acute cholecystitis, small cystic mass uncinate pancreas. GS following, going for cholecystostomy tube. - epigastric pain - also RUQ TTP on exam. has had 3 weeks, intermittently. imaging as above. - leukocytosis - mild improvement today - NSTEMI, CKD per primary, cardiology following was on plavix at home PLAN - await cholecystostomy tube - monitor labs - supportive care pt seen by myself and Dr Oneal and this note is written on his behalf (Marina Callahan) Physician Comments Seen and examined, discussed with Dr Noble, will plan cholecystostomy and cholangiogram in few days if LFT's increase again. (Mikayla Oneal MD) Marina Callahan Mar 28, 2017 14:28 Mikayla Oneal MD Mar 28, 2017 15:49
[2017-03-28] MEDS ORDERED: LORazepam 2 MG/ML VIAL ONE (15:24)
[2017-03-28] MEDS ORDERED: IOHEXOL 350 MG/ML 50 ML BTL (for RAD DIAG) OTHER ONE (15:50)
--- NOTE | 2017-03-28 16:58 | RADRPT ---
EXAM DATE/TIME: 03/28/2017 15:41 [facility] COMPARISON: No previous studies available for comparison. INDICATIONS : Pateint with upper quadrant pain. MEDICAL HISTORY : 1. DC 2. Hypothroidism 3. Hypercholesterolemia 4. Legally blind 6. HTN 7. renal insufficiency SURGICAL HISTORY : 1. Coronary stent 2. Eye surgery ENCOUNTER: Initial ACUITY: 2 days PAIN SCORE: 1/10 LOCATION: Right upper quadrant FLUORO TIME: 1.2 minutes IMAGE SERIES: 1 CONTRAST: 5 cc Omnipaque (iohexol) 350 MEDICATION(S): 1.) 1 mg lorazepam (Ativan) IV 2.) 150 mcg fentanyl (Sublimaze) IV Prophylactic antibiotics were administered with appropriate pre-procedure timing. DEVICE(S): 1.) 8 Czech locking All purpose drain PROCEDURE : 1. Ultrasound guided puncture of the gallbladder. 2. Percutaneous cholangiogram. 3. Percutaneous cholecystostomy tube placement. 4. Conscious sedation with continuous EKG and oximetry monitoring. The risks, benefits and alternatives to the procedure were explained and verbal and written consent w as obtained. The site was prepped in sterile fashion. Full sterile technique was used, including ca p, mask, sterile gloves and gown and a large sterile sheet. Hand hygiene and 2% chlorhexidine and/or betadine/alcohol prep was utilized per protocol for cutaneous antisepsis. Sterile gel and sterile p robe cover were utilized for ultrasound guidance. The skin and subcutaneous tissues were infiltrated with local anesthetic solution. With ultrasound and fluoroscopic guidance the gallbladder was punctured with a micropuncture set and a 4 Czech dilator was placed. Injection of positive contrast demonstrates position within the gallb ladder. A 0.035 guidewire was placed within the gallbladder lumen and dilatation was performed to ac cept the prescribed catheter. 60 mL of dark crankcase oil appearing bile was removed immediately following catheter placement. Conscious sedation was performed with the prescribed dosages and duration as above in the presence of an independent trained radiology nurse to assist in the monitoring of the patient. EKG and oximetry remained stable throughout the procedure. The patient tolerated the procedure well and there were n o complications. The patient was sent to post anesthesia recovery in stable condition. CONCLUSION: 1. Uncomplicated percutaneous cholecystostomy as above. 2. 60 mL of dark crankcase oil appearing bile was removed immediately following catheter placement. Jonh Jordan MD on March 28, 2017 at 16:55 Board Certified Radiologist. This report was verified electronically.
[2017-03-29] VITALS: BP 160/72; PULSE 75; RESP 20; TEMP 98.6; O2SAT 94
[2017-03-29 04:00] VITALS: BP 115/54; PULSE 67; RESP 20; TEMP 97.8; O2SAT 94
[2017-03-29] MEDS: LEVOTHYROXINE SODIUM 50 MCG TAB PO SCH (05:56)
[2017-03-29] MEDS: metroNIDAZOLE 500 MG INJ 100 ML IV SCH ×3 (05:56→20:38)
[2017-03-29 06:52] LABS: AUTOMATED NEUTROPHIL # 13.1 TH/MM3 (1.8-7.7); BASOPHIL % 0.1 % (0.0-2.0); HEMATOCRIT 42.4 % (39.0-51.0); HEMOGLOBIN 14.3 GM/DL (13.0-17.0); LYMPH % 5.1 % (9.0-44.0); LYMPHOCYTE # 0.7 TH/MM3 (1.0-4.8); MEAN CELL VOLUME 93.6 FL (80.0-100.0); MEAN CORPUSCULAR HEMOGLOBIN 31.6 PG (27.0-34.0); MEAN CORPUSCULAR HGB CONC 33.7 % (32.0-36.0); MEAN PLATELET VOLUME 10.1 FL (7.0-11.0); MONO % 4.7 % (0.0-8.0); MONOCYTE # 0.7 TH/MM3 (0-0.9); NEUT % 90.1 % (16.0-70.0); PLATELET COUNT 163 TH/MM3 (150-450); RED BLOOD COUNT 4.53 MIL/MM3 (4.50-5.90); RED CELL DISTRIBUTION WIDTH 13.8 % (11.6-17.2); WHITE BLOOD COUNT 14.6 TH/MM3 (4.0-11.0)
[2017-03-29 07:37] LABS: ALBUMIN 2.6 GM/DL (3.4-5.0); ALKALINE PHOSPHATASE 150 U/L (45-117); ALT (GPT) 73 U/L (12-78); AST (GOT) 32 U/L (15-37); BICARBONATE 23.1 MEQ/L (21.0-32.0); BLOOD UREA NITROGEN 46 MG/DL (7-18); CALCIUM 8.8 MG/DL (8.5-10.1); CHLORIDE 112 MEQ/L (98-107); CREATININE 1.94 MG/DL (0.60-1.30); GLOMERULAR FILTRATION RATE 33 ML/MIN (>89); GLUCOSE,RANDOM 117 MG/DL (74-106); SODIUM (NA) 144 MEQ/L (136-145); TOTAL BILIRUBIN ADULT 1.4 MG/DL (0.2-1.0); TOTAL PROTEIN 6.4 GM/DL (6.4-8.2)
[2017-03-29 08:00] VITALS: BP 155/80; PULSE 88; RESP 20; TEMP 98.4; O2SAT 95
--- NOTE | 2017-03-29 09:52 | HHI.PR ---
Subjective Remarks pulled out cholecystostomy tube last night..Pt very apologetic at moment and says it was an accident. he does have some dementia and intermittent confusion. Objective Vitals nad comortable heart reg lung cta abd s/nt ext no edema Vital Signs Date Time Temp Pulse Resp B/P (MAP) Pulse Ox O2 Delivery O2 Flow Rate FiO2 03/29/17 08:00 98.4 88 20 155/80 (105) 95 03/29/17 04:00 Room Air 03/29/17 04:00 97.8 67 20 115/54 (74) 94 03/29/17 00:00 98.6 75 20 160/72 (101) 94 03/29/17 00:00 Room Air 03/28/17 20:00 97.8 95 20 130/74 (92) 99 03/28/17 20:00 Room Air 03/28/17 18:13 95 21 03/28/17 16:50 84 18 148/89 (108) 95 03/28/17 16:20 83 18 155/87 (109) 94 03/28/17 16:05 98.1 70 16 170/96 (120) 98 03/28/17 16:00 98.3 77 20 113/61 (78) 94 03/28/17 12:00 97.7 67 20 154/85 (108) 96 03/28/17 11:20 Room Air Result Diagram: 03/29/17 0533 03/29/17 0533 Imaging Last 72 hours Impressions Gall Bladder Ultrasound 03/26/17 1557 Signed Impressions: Service Date/Time: Sunday, March 26, 2017 16:53 - CONCLUSION: 1. Gallbladder sludge with gallbladder wall thickening without other features to suggest acute cholecystitis. Therefore, findings are somewhat nonspecific and likely chronic in etiology. HIDA scan may be performed if there is continued clinical concern regarding acute cholecystitis. 2. Increased cortical echogenicity of the right kidney consistent with some degree of medical renal disease. 3. Simple right renal cysts. Jonh Jordan MD A/P Problem List: (1) Abdominal pain ICD Codes: R10.9 - Unspecified abdominal pain Status: Acute Plan: 1. epigastric pain. vomiting. rising wbc and lft sludge in gallbladder but no stone in cbd . probably cholecystitis. ?passed sludge 2. elevated troponin. hx cad. lexiscan neg for ischemia 3. a/ckd 3. probably dehydration 4. htn 5. hypothyroidism. plan discussed with dr Noble ...cholecystostomy tube placed by IR 03/28 pt pulled out the tube...ask IR to eval today cont iv abx PT (2) Acute worsening of stage 3 chronic kidney disease ICD Codes: N18.3 - Chronic kidney disease, stage 3 (moderate) Status: Acute (3) LFT elevation ICD Codes: R79.89 - Other specified abnormal findings of blood chemistry Status: Acute (4) CAD (coronary artery disease) ICD Codes: I25.10 - Atherosclerotic heart disease of [place] coronary artery without angina pectoris Status: Acute Plan: Stent reportedly placed in 2010. Last heart catheterization apparently 2010 which revealed patent stent in LAD with 30-40% stenosis and some other portions of LAD medical management elected at that time. Negative adenosine thallium stress test in July 2015. (5) GERD (gastroesophageal reflux disease) ICD Codes: K21.9 - Gastro-esophageal reflux disease without esophagitis Status: Chronic Plan: ppi (6) HTN (hypertension) ICD Codes: I10 - Essential (primary) hypertension Status: Chronic Plan: Continue medication (7) Hypothyroidism ICD Codes: E03.9 - Hypothyroidism, unspecified Status: Chronic Plan: Continue medication (8) PVD (peripheral vascular disease) ICD Codes: I73.9 - Peripheral vascular disease, unspecified Status: Chronic Plan: Continue medication. (9) Hyperlipidemia ICD Codes: E78.5 - Hyperlipidemia, unspecified Status: Chronic Plan: hold statin. lft elevated Ravi Gonzalez MD Mar 29, 2017 09:52
[2017-03-29] MEDS: METOPROLOL TARTRATE 25 MG TAB PO SCH ×2 (10:12→20:37)
[2017-03-29] MEDS: ASPIRIN 81 MG CHEW TAB PO SCH (10:13)
[2017-03-29] MEDS: SODIUM CHLORIDE 0.9% FLUSH 10 ML FLUSH IV FLUSH SCH ×2 (10:13→20:40)
[2017-03-29] MEDS: PANTOPRAZOLE SOD 40 MG DELAYED RELEASE TAB PO SCH (10:13)
[2017-03-29] MEDS: SODIUM CHLOR 0.9% 1000 ML INJ 1,000 ML IV SCH ×2 (10:22→23:35)
[2017-03-29 12:00] VITALS: BP 185/80; PULSE 60; RESP 20; TEMP 97.6; O2SAT 94
--- NOTE | 2017-03-29 12:52 | RADRPT ---
EXAM DATE/TIME: 03/29/2017 11:55 [facility] COMPARISON: CHOLECYSTOSTOMY, PERCUTANEOUS, March 28, 2017, 15:41. CHOLANGIOGRAM, PERCUTANEOUS, March 28, 017, 15:48. CT ABDOMEN & PELVIS W/O CONTRAST, March 26, 2017, 3:42. US ABDOMEN - GALLBLADDER, [facility]2016, 16:53. INDICATIONS : Assess gallbladder for tube placement. MEDICAL HISTORY : Hypercholesterolemia. Myocardial infarction. Gastroesophageal reflux disease. Hypothyroidism. Hyperte nsion. SURGICAL HISTORY : Carotid stent. Gallbladder drain tube. ENCOUNTER: Subsequent ACUITY: 1 day PAIN SCORE: 2/10 LOCATION: Right upper quadrant MEASUREMENTS: LIVER: 11.9 cm length COMMON DUCT: Non-visualized RIGHT KIDNEY: 11.2 x 6.7 x 5.7 cm FINDINGS: LIVER: Normal echotexture without focal lesion or ductal dilatation. COMMON DUCT: No intraluminal mass or stone visualized. GALLBLADDER: Echogenic heterogeneous material is seen within the gall bladder lumen. The patient has a cholecystos spencer tube in place. The gallbladder wall appears thickened at 6 mm. PANCREAS: The pancreas is obscured by bowel gas. RIGHT KIDNEY: There is a 4.0 cm cyst at the mid right kidney. Hydronephrosis is not seen. CONCLUSION: Cholecystostomy tube in place. Horace Scanlon MD on March 29, 2017 at 12:47 Board Certified Radiologist. This report was verified electronically.
[2017-03-29] MEDS: LEVOFLOXACIN 250 MG PREMIX INJ 50 ML IV SCH (13:34)
--- NOTE | 2017-03-29 14:53 | RADRPT ---
EXAM DATE/TIME: 03/29/2017 14:09 [facility] COMPARISON: No previous studies available for comparison. INDICATIONS : Evaluate for tyrell tube placement. ORAL CONTRAST: No oral contrast ingested. RADIATION DOSE: 16.01 CTDIvol (mGy) MEDICAL HISTORY : Cardiovascular disease. Hypertension. SURGICAL HISTORY : None. ENCOUNTER: Initial ACUITY: 1 day PAIN SCALE: 0/10 LOCATION: abdomen TECHNIQUE: Volumetric scanning of the abdomen was performed. Using automated exposure control and adjustment of the mA and/or kV according to patient size, radiation dose was kept as low as reasonably achievable to obtain optimal diagnostic quality images. DICOM format image data is available electronically for review and comparison. FINDINGS: LOWER LUNGS: Minimal consolidation at the right lung base. LIVER: Homogeneous density without lesion. There is no dilation of the biliary tree. Gallbladder is nearly completely decompressed and demonstrates diffuse gallbladder wall thickening and mild pericholecystic stranding. SPLEEN: Normal size without lesion. PANCREAS: Within normal limits. KIDNEYS: 3.9 cm cyst in the posterior mid right kidney. Kidneys otherwise are symmetrical in size without evid ence for radiopaque renal calculi or hydronephrosis. ADRENAL GLANDS: Within normal limits. AORTA/RETROPERITONEAL: There is no aneurysm or lymphadenopathy. BOWEL/MESENTERY: Subtle stranding adjacent the proximal descending colon without significant colonic wall thickening a t this time. However, bowel is incompletely evaluated due to lack of oral contrast. MUSCULOSKELETAL: No lytic or blastic bony lesions. CONCLUSION: 1. Gallbladder is now nearly completely decompressed with evidence for gallbladder inflammation. Ther e is colonic interposition in the right upper quadrant which limits access to the gallbladder. Given decompressed gallbladder lumen and limited window requiring direct gallbladder puncture, replacement of cholecystostomy drain is deferred at this time. Will reconsider cholecystostomy drainage if gallbl adder becomes distended or patient's clinical status deteriorates necessitating drainage. 2. Subtle pericolonic stranding in the visualized portions of the proximal descending colon. This is difficult to clarify given lack of oral contrast and incomplete imaging of the colon. Differential co nsideration includes developing infectious colitis. Clinical correlation is recommended. 3. Ancillary findings, as above. Jonh Jordan MD on March 29, 2017 at 14:45 Board Certified Radiologist. This report was verified electronically.
--- NOTE | 2017-03-29 15:33 | HHI.GIFU ---
Subjective Remarks Pt is resting in bed denies abd pain, nausea, vomiting. Accidently pulled out cholecystostomy tube last night. Went to IR for replacement, however, due to decompressed gallbladder, this was deferred (Nigel Trujillo) Objective Vitals I&O Vital Signs Date Time Temp Pulse Resp B/P (MAP) Pulse Ox O2 Delivery O2 Flow Rate FiO2 03/29/17 08:00 98.4 88 20 155/80 (105) 95 03/29/17 04:00 Room Air 03/29/17 04:00 97.8 67 20 115/54 (74) 94 03/29/17 00:00 98.6 75 20 160/72 (101) 94 03/29/17 00:00 Room Air 03/28/17 20:00 97.8 95 20 130/74 (92) 99 03/28/17 20:00 Room Air 03/28/17 18:13 95 21 03/28/17 16:50 84 18 148/89 (108) 95 03/28/17 16:20 83 18 155/87 (109) 94 03/28/17 16:05 98.1 70 16 170/96 (120) 98 03/28/17 16:00 98.3 77 20 113/61 (78) 94 I/O 03/28/17 03/28/17 03/28/17 03/29/17 03/29/17 03/29/17 07:00 15:00 23:00 07:00 15:00 23:00 Intake Total 524 ml 0 ml 340 ml 368 ml Output Total 100 ml 50 ml Balance 524 ml -100 ml 290 ml 368 ml Intake Oral 0 ml 0 ml 240 ml IV Total 524 ml 100 ml 368 ml Output Urine Total 100 ml Drainage Total 50 ml # Voids 2 2 # Bowel Movements 0 1 Laboratory Laboratory Tests Test 03/29/17 05:33 White Blood Count 14.6 Red Blood Count 4.53 Hemoglobin 14.3 Hematocrit 42.4 Mean Corpuscular Volume 93.6 Mean Corpuscular Hemoglobin 31.6 Mean Corpuscular Hemoglobin Concent 33.7 Red Cell Distribution Width 13.8 Platelet Count 163 Mean Platelet Volume 10.1 Neutrophils (%) (Auto) 90.1 Lymphocytes (%) (Auto) 5.1 Monocytes (%) (Auto) 4.7 Eosinophils (%) (Auto) 0.0 Basophils (%) (Auto) 0.1 Neutrophils # (Auto) 13.1 Lymphocytes # (Auto) 0.7 Monocytes # (Auto) 0.7 Eosinophils # (Auto) 0.0 Basophils # (Auto) 0.0 CBC Comment DIFF FINAL Differential Comment Blood Urea Nitrogen 46 Creatinine 1.94 Random Glucose 117 Total Protein 6.4 Albumin 2.6 Calcium Level 8.8 Alkaline Phosphatase 150 Aspartate Amino Transf (AST/SGOT) 32 Alanine Aminotransferase (ALT/SGPT) 73 Total Bilirubin 1.4 Sodium Level 144 Potassium Level 4.3 Chloride Level 112 Carbon Dioxide Level 23.1 Anion Gap 9 Estimat Glomerular Filtration Rate 33 Imaging Last Impressions Gall Bladder Ultrasound 03/29/17 0000 Signed Impressions: Service Date/Time: Wednesday, March 29, 2017 11:55 - CONCLUSION: Cholecystostomy tube in place. Horace Scanlon MD Abdomen CT 03/29/17 0000 Signed Impressions: Service Date/Time: Wednesday, March 29, 2017 14:09 - CONCLUSION: 1. Gallbladder is now nearly completely decompressed with evidence for gallbladder inflammation. There is colonic interposition in the right upper quadrant which limits access to the gallbladder. Given decompressed gallbladder lumen and limited window requiring direct gallbladder puncture, replacement of cholecystostomy drain is deferred at this time. Will reconsider cholecystostomy drainage if gallbladder becomes distended or patient's clinical status deteriorates necessitating drainage. 2. Subtle pericolonic stranding in the visualized portions of the proximal descending colon. This is difficult to clarify given lack of oral contrast and incomplete imaging of the colon. Differential consideration includes developing infectious colitis. Clinical correlation is recommended. 3. Ancillary findings, as above. Jonh Jordan MD Percutaneous Cholangiogram 03/28/17 0000 Signed Impressions: Service Date/Time: Tuesday, March 28, 2017 15:41 - CONCLUSION: 1. Uncomplicated percutaneous cholecystostomy as above. 2. 60 mL of dark crankcase oil appearing bile was removed immediately following catheter placement. Jonh Jordan MD Myocardial Perfusion Scan Nuc Med 03/27/17 0000 Signed Impressions: Service Date/Time: February 12:19 - CONCLUSION: No evidence of fixed or reversible perfusion abnormalities. Normal wall motion and ejection fraction. RISK CATEGORY: Low (<1%% Annual Mortality Rate) Axel Aldrich MD Cholangiopancreatography MRI 03/27/17 0000 Signed Impressions: Service Date/Time: February 17:44 - CONCLUSION: Appearance consistent with acute cholecystitis. Small cystic mass in the uncinate of pancreas will require followup. Horace Whatley MD Physical Exam HEENT: PERRL; normocephalic; atraumatic; no jaundice. CHEST: CTA CARDIAC: RRR +murmur ABDOMEN: Soft, nondistended, nontender; no hepatosplenomegaly; bowel sounds are present in all four quadrants. EXTREMITIES: No clubbing, cyanosis, or edema. SKIN: Normal; no rash; no jaundice. MOTION PICTURE COMMENTATOR: alert (Nigel Trujillo) Assessment and Plan Plan ASSESSMENT - elev LFTs, abd pain - cholecystitis per imaging. LFTs mild decrease today. pain improved. US showed GB sludge. MRCP showed acute cholecystitis, small cystic mass uncinate pancreas. GS following, going for cholecystostomy tube. - epigastric pain - also RUQ TTP on exam. has had 3 weeks, intermittently. imaging as above. - leukocytosis - mild improvement today - NSTEMI, CKD per primary, cardiology following was on plavix at home 03/29/17- denies abd pain, nausea, vomiting. Accidently pulled out cholecystostomy tube last night. Went to IR for replacement, however, due to decompressed gallbladder, this was deferred. LFTs with marked improvement today WBC trending down as well PLAN - okay to start diet - No procedure planned for now - monitor labs - supportive care pt seen by myself and Dr Martínez and this note is written on his behalf (Nigel Trujillo) Physician Comments Plan as above, will sign off for now, please notify us if needed. (Mikayla Martínez MD) Nigel Trujillo Mar 29, 2017 15:33 Mikayla Martínez MD Mar 29, 2017 16:06
[2017-03-29 16:00] VITALS: BP 165/77; PULSE 64; RESP 20; TEMP 97.2; O2SAT 94
[2017-03-29] MEDS: cloNIDine HCL 0.1 MG TAB PO PRN (17:48)
[2017-03-29 19:23] VITALS: BP 174/75; PULSE 66; RESP 20; TEMP 97.6; O2SAT 96
[2017-03-30] VITALS (7 sets, daily range): BP systolic 116–187; BP diastolic 59–84; PULSE 51–67; RESP 18–20; TEMP 97.4–98.7; O2SAT 93–96
[2017-03-30] MEDS: LEVOTHYROXINE SODIUM 50 MCG TAB PO SCH (06:05)
[2017-03-30] MEDS: cloNIDine HCL 0.1 MG TAB PO PRN (06:05)
[2017-03-30] MEDS: metroNIDAZOLE 500 MG INJ 100 ML IV SCH ×3 (06:07→21:25)
[2017-03-30] MEDS: ASPIRIN 81 MG CHEW TAB PO SCH (08:34)
[2017-03-30] MEDS: PANTOPRAZOLE SOD 40 MG DELAYED RELEASE TAB PO SCH (08:34)
[2017-03-30] MEDS: METOPROLOL TARTRATE 25 MG TAB PO SCH ×2 (08:34→21:24)
[2017-03-30] MEDS: SODIUM CHLORIDE 0.9% FLUSH 10 ML FLUSH IV FLUSH SCH ×2 (08:34→21:24)
[2017-03-30] MEDS: LISINOPRIL 10 MG TAB PO SCH (08:34)
--- NOTE | 2017-03-30 08:53 | HHI.PR ---
Subjective Remarks says he is being held prisoner here no diarrhea reported. no vomiting Objective Vitals nad heart reg lung cta abd s/nt ext no edema Vital Signs Date Time Temp Pulse Resp B/P (MAP) Pulse Ox O2 Delivery O2 Flow Rate FiO2 03/30/17 04:00 Room Air 03/30/17 04:00 97.9 61 20 187/84 (118) 96 03/30/17 00:00 Room Air 03/30/17 00:00 97.8 67 20 116/59 (78) 96 03/29/17 20:00 Room Air 03/29/17 19:23 97.6 66 20 174/75 (108) 96 03/29/17 16:00 97.2 64 20 165/77 (106) 94 03/29/17 12:00 97.6 60 20 185/80 (115) 94 Result Diagram: 03/29/17 0533 03/29/17 0533 Imaging Last 72 hours Impressions Gall Bladder Ultrasound 03/26/17 1557 Signed Impressions: Service Date/Time: Sunday, March 26, 2017 16:53 - CONCLUSION: 1. Gallbladder sludge with gallbladder wall thickening without other features to suggest acute cholecystitis. Therefore, findings are somewhat nonspecific and likely chronic in etiology. HIDA scan may be performed if there is continued clinical concern regarding acute cholecystitis. 2. Increased cortical echogenicity of the right kidney consistent with some degree of medical renal disease. 3. Simple right renal cysts. Jonh Jordan MD A/P Problem List: (1) Cholecystitis, acute ICD Codes: K81.0 - Acute cholecystitis Status: Acute Plan: 1. acute cholecystitis with epigastric pain. vomiting. rising wbc and lft sludge in gallbladder but no stone in cbd . s/p cholecystostomy tube by IR 03/28...pt then pulled out 2. elevated troponin. hx cad. lexiscan neg for ischemia 3. a/ckd 3. probably dehydration 4. htn 5. hypothyroidism. plan discussed with dr Noble and Dr Almaguer. Pt pulled out tube...gb currently decompressed and unable to replace yesterday cont abx and monitor clinically. If stable will check with Dr Noble on Friday for his opinion on d/c d/c ivf. diet progressed. add [place] for bp control dvt prophylaxis. (2) Acute worsening of stage 3 chronic kidney disease ICD Codes: N18.3 - Chronic kidney disease, stage 3 (moderate) Status: Acute (3) LFT elevation ICD Codes: R79.89 - Other specified abnormal findings of blood chemistry Status: Acute (4) CAD (coronary artery disease) ICD Codes: I25.10 - Atherosclerotic heart disease of [place] coronary artery without angina pectoris Status: Acute Plan: Stent reportedly placed in 2010. Last heart catheterization apparently 2010 which revealed patent stent in LAD with 30-40% stenosis and some other portions of LAD medical management elected at that time. Negative adenosine thallium stress test in July 2015. (5) GERD (gastroesophageal reflux disease) ICD Codes: K21.9 - Gastro-esophageal reflux disease without esophagitis Status: Chronic Plan: ppi (6) HTN (hypertension) ICD Codes: I10 - Essential (primary) hypertension Status: Chronic Plan: Continue medication (7) Hypothyroidism ICD Codes: E03.9 - Hypothyroidism, unspecified Status: Chronic Plan: Continue medication (8) PVD (peripheral vascular disease) ICD Codes: I73.9 - Peripheral vascular disease, unspecified Status: Chronic Plan: Continue medication. (9) Hyperlipidemia ICD Codes: E78.5 - Hyperlipidemia, unspecified Status: Chronic Plan: hold statin. lft elevated Ravi Gonzalez MD Mar 30, 2017 08:53
[2017-03-30] MEDS: HEPARIN SODIUM - SQ 10,000 UNITS/ML VIAL SQ SCH ×2 (09:00→21:24)
[2017-03-30] MEDS: LEVOFLOXACIN 250 MG PREMIX INJ 50 ML IV SCH (12:58)
--- NOTE | 2017-03-30 15:58 | ECHRPT ---
Indication: SHORTNESS OF BREATH CONCLUSIONS The left ventricular systolic function is hyperdynamic with an estimated ejection fraction in the ra nge of 65- 70%. Doppler parameters are consistent with impaired left ventricular relaxtion (grade 1 diastolic dysfun ction). Mild mitral valve regurgitation. Mild aortic valve regurgitation. Moderate aortic valve stenosis (peak 37, mean 19, STANISLAW 1.0) There is mild tricuspid valve regurgitation. Mild pulmonary valve regurgitation. BP: 107 / 58 HR: Rhythm: Sinus MEASUREMENTS (Male / Female) Normal Values Technical Quality:Fair 2D ECHO LVOT Diameter 2.3 cm Aortic Root Diameter 3.2 cm DOPPLER AV Peak Velocity 303.0 cm/s AV Peak Gradient 36.7 mmHg AV Mean Gradient 19.0 mmHg AV Velocity Time Integral 71.3 cm LVOT Peak Velocity 66.2 cm/s LVOT Peak Gradient 1.8 mmHg LVOT Velocity Time Integral 16.9 cm AV Area Cont Eq vti 1.0 cm AV Area Cont Eq pk 0.9 cm Mitral E Point Velocity 66.1 cm/s Mitral A Point Velocity 69.6 cm/s Mitral E to A Ratio 0.9 LV E' Lateral Velocity 11.0 cm/s Mitral E to LV E' Lateral Ratio 6.0 LV E' Septal Velocity 5.3 cm/s Mitral E to LV E' Septal Ratio 12.6 TR Peak Velocity 278.0 cm/s TR Peak Gradient 30.9 mmHg Right Atrial Pressure 10.0 mmHg Pulmonary Artery Systolic Pressu 40.9 mmHg Right Ventricular Systolic Press 40.9 mmHg PV Peak Velocity 58.7 cm/s PV Peak Gradient 1.4 mmHg FINDINGS LEFT VENTRICLE Normal left ventricular size. Wall thickness is measured at the upper limits of normal. The left ventricular systolic function is hyperdynamic with an estimated ejection fraction in the ra nge of 65- 70%. Doppler parameters are consistent with impaired left ventricular relaxtion (grade 1 diastolic dysfun ction). RIGHT VENTRICLE Normal right ventricular size and systolic function. LEFT ATRIUM The left atrial size is moderately dilated. RIGHT ATRIUM The right atrial size is mildly dilated. ATRIAL SEPTUM Normal atrial septal thickness without atrial level shunting by limited color doppler interrogation. AORTA The aortic root and proximal ascending aorta are normal in size on limited imaging. MITRAL VALVE Structurally normal mitral valve. Mild mitral valve regurgitation. No mitral valve stenosis. AORTIC VALVE Trileaflet aortic valve. Diffuse calcification of the aortic valve. Mild aortic valve regurgitation. Moderate aortic valve stenosis (peak 37, mean 19, STANISLAW 1.0) TRICUSPID VALVE Structurally normal tricuspid valve. There is mild tricuspid valve regurgitation. No tricuspid valve stenosis. The estimated pulmonary arterial pressure is 40.9 mmHg. PULMONARY VALVE The pulmonary valve is not well visualized. Mild pulmonary valve regurgitation. VESSELS The inferior vena cava is normal in size. PERICARDIUM No pericardial effusion. Sebastián Joseph DO (Electronically Signed) Final Date:30 March 2017 15:57
[2017-03-31] VITALS (7 sets, daily range): BP systolic 132–173; BP diastolic 61–76; PULSE 49–62; RESP 16–22; TEMP 97.3–98.2; O2SAT 95–98
[2017-03-31] MEDS: metroNIDAZOLE 500 MG INJ 100 ML IV SCH ×4 (05:50→23:03)
[2017-03-31] MEDS: LEVOTHYROXINE SODIUM 50 MCG TAB PO SCH (05:54)
[2017-03-31 06:16] LABS: BASOPHIL % 0.2 % (0.0-2.0); EOSINOPHIL # 0.3 TH/MM3 (0-0.4); EOSINOPHIL % 2.6 % (0.0-4.0); HEMATOCRIT 38.7 % (39.0-51.0); HEMOGLOBIN 13.3 GM/DL (13.0-17.0); LYMPH % 9.6 % (9.0-44.0); LYMPHOCYTE # 1.2 TH/MM3 (1.0-4.8); MEAN CELL VOLUME 92.6 FL (80.0-100.0); MEAN CORPUSCULAR HEMOGLOBIN 31.8 PG (27.0-34.0); MEAN CORPUSCULAR HGB CONC 34.3 % (32.0-36.0); MEAN PLATELET VOLUME 9.7 FL (7.0-11.0); MONO % 6.4 % (0.0-8.0); MONOCYTE # 0.8 TH/MM3 (0-0.9); NEUT % 81.2 % (16.0-70.0); PLATELET COUNT 206 TH/MM3 (150-450); RED BLOOD COUNT 4.18 MIL/MM3 (4.50-5.90); RED CELL DISTRIBUTION WIDTH 13.7 % (11.6-17.2); WHITE BLOOD COUNT 12.4 TH/MM3 (4.0-11.0)
[2017-03-31] MEDS: SODIUM CHLORIDE 0.9% FLUSH 10 ML FLUSH IV FLUSH SCH ×2 (09:42→21:08)
[2017-03-31] MEDS: PANTOPRAZOLE SOD 40 MG DELAYED RELEASE TAB PO SCH (09:43)
[2017-03-31] MEDS: METOPROLOL TARTRATE 25 MG TAB PO SCH ×2 (09:43→21:00)
[2017-03-31] MEDS: ASPIRIN 81 MG CHEW TAB PO SCH (09:43)
[2017-03-31] MEDS: HEPARIN SODIUM - SQ 10,000 UNITS/ML VIAL SQ SCH ×2 (09:43→21:08)
[2017-03-31] MEDS: LISINOPRIL 10 MG TAB PO SCH (09:43)
[2017-03-31] MEDS: LEVOFLOXACIN 250 MG PREMIX INJ 50 ML IV SCH (14:00)
--- NOTE | 2017-03-31 17:25 | HHI.PR ---
Subjective Remarks Pt is tolerating PO intake. Pt denies n/v. Objective Vitals Vital Signs Date Time Temp Pulse Resp B/P (MAP) Pulse Ox O2 Delivery O2 Flow Rate FiO2 03/31/17 12:00 97.5 50 16 132/61 (84) 97 03/31/17 08:00 97.4 62 16 157/76 (103) 97 03/31/17 07:15 97 Room Air 03/31/17 04:00 98.1 58 22 158/70 (99) 96 03/31/17 00:00 98.2 54 20 156/65 (95) 95 03/30/17 20:00 Room Air 03/30/17 20:00 98.7 62 20 158/72 (100) 96 Result Diagram: 03/31/17 0515 03/29/17 0533 Imaging Last Impressions Gall Bladder Ultrasound 03/29/17 0000 Signed Impressions: Service Date/Time: Wednesday, March 29, 2017 11:55 - CONCLUSION: Cholecystostomy tube in place. Horace Scanlon MD Abdomen CT 03/29/17 0000 Signed Impressions: Service Date/Time: Wednesday, March 29, 2017 14:09 - CONCLUSION: 1. Gallbladder is now nearly completely decompressed with evidence for gallbladder inflammation. There is colonic interposition in the right upper quadrant which limits access to the gallbladder. Given decompressed gallbladder lumen and limited window requiring direct gallbladder puncture, replacement of cholecystostomy drain is deferred at this time. Will reconsider cholecystostomy drainage if gallbladder becomes distended or patient's clinical status deteriorates necessitating drainage. 2. Subtle pericolonic stranding in the visualized portions of the proximal descending colon. This is difficult to clarify given lack of oral contrast and incomplete imaging of the colon. Differential consideration includes developing infectious colitis. Clinical correlation is recommended. 3. Ancillary findings, as above. Jonh Jordan MD Percutaneous Cholangiogram 03/28/17 0000 Signed Impressions: Service Date/Time: Tuesday, March 28, 2017 15:41 - CONCLUSION: 1. Uncomplicated percutaneous cholecystostomy as above. 2. 60 mL of dark crankcase oil appearing bile was removed immediately following catheter placement. Jonh Jordan MD Myocardial Perfusion Scan Nuc Med 03/27/17 0000 Signed Impressions: Service Date/Time: February 12:19 - CONCLUSION: No evidence of fixed or reversible perfusion abnormalities. Normal wall motion and ejection fraction. RISK CATEGORY: Low (<1%% Annual Mortality Rate) Axel Aldrich MD Cholangiopancreatography MRI 03/27/17 0000 Signed Impressions: Service Date/Time: February 17:44 - CONCLUSION: Appearance consistent with acute cholecystitis. Small cystic mass in the uncinate of pancreas will require followup. Horace Whatley MD Objective Remarks GENERAL: This is a well-nourished, well-developed patient, in no apparent distress. CARDIOVASCULAR: Regular rate and rhythm without murmurs, gallops, or rubs. RESPIRATORY: Clear to auscultation. Breath sounds equal bilaterally. No wheezes , rales, or rhonchi. GASTROINTESTINAL: Abdomen soft, non-tender, nondistended. Normal active bowel sounds MUSCULOSKELETAL: Extremities without clubbing, cyanosis, or edema. NEURO: Alert & Oriented x4 to person, place, time, situation. Moves all ext x4 A/P Problem List: (1) Cholecystitis, acute ICD Codes: K81.0 - Acute cholecystitis Status: Acute Plan: 1. acute cholecystitis with epigastric pain. vomiting. rising wbc and lft sludge in gallbladder but no stone in cbd . s/p cholecystostomy tube by IR 03/28...pt then pulled out 2. elevated troponin. hx cad. lexiscan neg for ischemia 3. a/ckd 3. probably dehydration 4. htn 5. hypothyroidism. - Pt pulled out tube - gb currently decompressed and unable to replace (03/29) - pt clinically stable and tolerating PO inatke - levaquin/flagyl - will d/c general surgery (04/01) - anticipate d/c to home (04/01) (2) LFT elevation ICD Codes: R79.89 - Other specified abnormal findings of blood chemistry Status: Acute Plan: - improving - see above (3) Acute worsening of stage 3 chronic kidney disease ICD Codes: N18.3 - Chronic kidney disease, stage 3 (moderate) Status: Acute Plan: - stable (4) CAD (coronary artery disease) ICD Codes: I25.10 - Atherosclerotic heart disease of [place] coronary artery without angina pectoris Status: Acute Plan: Stent reportedly placed in 2010. Last heart catheterization apparently 2010 which revealed patent stent in LAD with 30-40% stenosis and some other portions of LAD medical management elected at that time. Negative adenosine thallium stress test in July 2015. (5) GERD (gastroesophageal reflux disease) ICD Codes: K21.9 - Gastro-esophageal reflux disease without esophagitis Status: Chronic Plan: ppi (6) HTN (hypertension) ICD Codes: I10 - Essential (primary) hypertension Status: Chronic Plan: - stable - lisinopril, metoprolol (7) Hypothyroidism ICD Codes: E03.9 - Hypothyroidism, unspecified Status: Chronic Plan: Continue medication (8) PVD (peripheral vascular disease) ICD Codes: I73.9 - Peripheral vascular disease, unspecified Status: Chronic Plan: Continue medication. (9) Hyperlipidemia ICD Codes: E78.5 - Hyperlipidemia, unspecified Status: Chronic Plan: hold statin. lft elevated Raj Mtz DO Mar 31, 2017 17:25
[2017-03-31] MEDS: cloNIDine HCL 0.1 MG TAB PO PRN (22:32)
[2017-04-01] VITALS (8 sets, daily range): BP systolic 134–147; BP diastolic 60–71; PULSE 50–64; RESP 19–20; TEMP 97.4–97.9; O2SAT 94–97
[2017-04-01] MEDS: metroNIDAZOLE 500 MG INJ 100 ML IV SCH ×3 (04:49→21:25)
[2017-04-01] MEDS: LEVOTHYROXINE SODIUM 50 MCG TAB PO SCH (04:49)
[2017-04-01 07:35] LABS: HEMOGLOBIN 13.9 GM/DL (13.0-17.0); MEAN CELL VOLUME 95.3 FL (80.0-100.0); MEAN CORPUSCULAR HEMOGLOBIN 32.3 PG (27.0-34.0); MEAN CORPUSCULAR HGB CONC 33.8 % (32.0-36.0); MEAN PLATELET VOLUME 9.3 FL (7.0-11.0); PLATELET COUNT 179 TH/MM3 (150-450); RED CELL DISTRIBUTION WIDTH 14.3 % (11.6-17.2); WHITE BLOOD COUNT 11.2 TH/MM3 (4.0-11.0)
[2017-04-01] MEDS: HEPARIN SODIUM - SQ 10,000 UNITS/ML VIAL SQ SCH ×2 (08:25→21:26)
[2017-04-01] MEDS: METOPROLOL TARTRATE 25 MG TAB PO SCH ×2 (08:26→21:00)
[2017-04-01] MEDS: PANTOPRAZOLE SOD 40 MG DELAYED RELEASE TAB PO SCH (08:26)
[2017-04-01] MEDS: ASPIRIN 81 MG CHEW TAB PO SCH (08:26)
[2017-04-01] MEDS: LISINOPRIL 10 MG TAB PO SCH (08:26)
[2017-04-01] MEDS: SODIUM CHLORIDE 0.9% FLUSH 10 ML FLUSH IV FLUSH SCH ×2 (08:26→21:26)
[2017-04-01] MEDS ORDERED: METR1TAB76 PO (11:29)
[2017-04-01] MEDS ORDERED: LEVO750T3 PO (11:29)
--- NOTE | 2017-04-01 11:32 | HHI.PR ---
Subjective Subjective Notes His significant other is at the bedside. His diet is not quite normal but has been improving. He denies abdominal pain. Objective Vitals/I&O Vital Signs Date Time Temp Pulse Resp B/P (MAP) Pulse Ox O2 Delivery O2 Flow Rate FiO2 04/01/17 08:00 Room Air 04/01/17 08:00 97.9 55 20 147/71 (96) 96 03/31/17 20:31 21 Labs Laboratory Tests Test 04/01/17 05:20 White Blood Count 11.2 Red Blood Count 4.30 Hemoglobin 13.9 Hematocrit 41.0 Mean Corpuscular Volume 95.3 Mean Corpuscular Hemoglobin 32.3 Mean Corpuscular Hemoglobin Concent 33.8 Red Cell Distribution Width 14.3 Platelet Count 179 Mean Platelet Volume 9.3 Radiology Last Impressions Cholangiopancreatography MRI 03/27/17 0000 Signed Impressions: Service Date/Time: February 17:44 - CONCLUSION: Appearance consistent with acute cholecystitis. Small cystic mass in the uncinate of pancreas will require followup. Horace Whatley MD Gall Bladder Ultrasound 03/26/17 1557 Signed Impressions: Service Date/Time: Sunday, March 26, 2017 16:53 - CONCLUSION: 1. Gallbladder sludge with gallbladder wall thickening without other features to suggest acute cholecystitis. Therefore, findings are somewhat nonspecific and likely chronic in etiology. HIDA scan may be performed if there is continued clinical concern regarding acute cholecystitis. 2. Increased cortical echogenicity of the right kidney consistent with some degree of medical renal disease. 3. Simple right renal cysts. Jonh Jordan MD Narrative Exam NAD Abd, soft ntd neg smith's sign A/P Assessment and Plan 89 yo M with acute cholecystitis, ? choledocholithiasis, s/p tyrell tube and then tyrell tube was pulled out. It has been a few days without problems after he pulled it out and he continues to improve. WBC and LFTs near normal. CT a/ p has shown decompressed gallbladder with some persistent inflammation. Ok for dc home from my standpoint. Discussed the situation in detail with the patient and his partner. Low fat diet. Rx for levaquin/flagyl on chart. F/u with me in two weeks. Real,Husam TREJO Apr 01, 2017 11:32
[2017-04-01] MEDS: LEVOFLOXACIN 250 MG PREMIX INJ 50 ML IV SCH (12:00)
[2017-04-01] MEDS ORDERED: LISI10TA3 PO (17:36)
--- NOTE | 2017-04-01 17:42 | HHI.DS ---
Discharge Summary Admission Date Mar 26, 2017 at 19:23 Discharge Date: Apr 02, 2017 Admitting Diagnosis NSTEMI (1) Cholecystitis, acute Diagnosis: Principal ICD Codes: K81.0 - Acute cholecystitis Status: Acute (2) LFT elevation Diagnosis: Principal ICD Codes: R79.89 - Other specified abnormal findings of blood chemistry Status: Acute (3) Acute worsening of stage 3 chronic kidney disease Diagnosis: Principal ICD Codes: N18.3 - Chronic kidney disease, stage 3 (moderate) Status: Acute (4) CAD (coronary artery disease) Diagnosis: Secondary ICD Codes: I25.10 - Atherosclerotic heart disease of [place] coronary artery without angina pectoris Status: Acute (5) GERD (gastroesophageal reflux disease) Diagnosis: Secondary ICD Codes: K21.9 - Gastro-esophageal reflux disease without esophagitis Status: Chronic (6) HTN (hypertension) Diagnosis: Secondary ICD Codes: I10 - Essential (primary) hypertension Status: Chronic (7) Hypothyroidism Diagnosis: Secondary ICD Codes: E03.9 - Hypothyroidism, unspecified Status: Chronic (8) PVD (peripheral vascular disease) Diagnosis: Secondary ICD Codes: I73.9 - Peripheral vascular disease, unspecified Status: Chronic (9) Hyperlipidemia Diagnosis: Secondary ICD Codes: E78.5 - Hyperlipidemia, unspecified Status: Chronic Consultants Dr. Mika Ricardo, Cardiology Dr. Husam Noble, General Surgery Brief History 89-year-old male with dementia and history of hypertension and apparent coronary artery disease with distant history is stent placement presents for epigastric discomfort. He reports he has had this discomfort off and on for approximately 2 years. He was seen for some similar pain with SVT approximately a year and a half ago and had a negative adenosine thallium stress test at that time. In much earlier today and had a negative troponin with mildly elevated lipase and symptoms consistent with gastritis. Was discharged home and continued to have symptoms so his significant other brought him back to the ER this evening. Reevaluation revealed normal EKG at this time slightly elevated troponin of 0.64. She is currently asymptomatic with the exception of occasional epigastric burning pain. He denies any radiation of pain. He does have some underlying dementia and his history or a cold presentation is somewhat suspect. He reports that he vomited 3 times yesterday but none today. Denies any hematochezia or melena. He was chills. Denies any chest wall or abdominal trauma. Interestingly his repeat lipase is normal, but LFTs have risen. Ultrasound revealed some thickening of the gallbladder and sludge but no apparent acute findings associated with cholecystitis. He has been placed on heparin drip and I discussed the case with Dr. Ricardo who is covering cardiology service. CBC/BMP: 04/01/17 0520 03/29/17 0533 Significant Findings Laboratory Tests Test 03/31/17 05:15 04/01/17 05:20 White Blood Count 12.4 TH/MM3 (4.0-11.0) 11.2 TH/MM3 (4.0-11.0) Red Blood Count 4.18 MIL/MM3 (4.50-5.90) 4.30 MIL/MM3 (4.50-5.90) Hematocrit 38.7 % (39.0-51.0) Neutrophils (%) (Auto) 81.2 % (16.0-70.0) Neutrophils # (Auto) 10.0 TH/MM3 (1.8-7.7) Imaging Last Impressions Gall Bladder Ultrasound 03/29/17 0000 Signed Impressions: Service Date/Time: Wednesday, March 29, 2017 11:55 - CONCLUSION: Cholecystostomy tube in place. Horace Scanlon MD Abdomen CT 03/29/17 0000 Signed Impressions: Service Date/Time: Wednesday, March 29, 2017 14:09 - CONCLUSION: 1. Gallbladder is now nearly completely decompressed with evidence for gallbladder inflammation. There is colonic interposition in the right upper quadrant which limits access to the gallbladder. Given decompressed gallbladder lumen and limited window requiring direct gallbladder puncture, replacement of cholecystostomy drain is deferred at this time. Will reconsider cholecystostomy drainage if gallbladder becomes distended or patient's clinical status deteriorates necessitating drainage. 2. Subtle pericolonic stranding in the visualized portions of the proximal descending colon. This is difficult to clarify given lack of oral contrast and incomplete imaging of the colon. Differential consideration includes developing infectious colitis. Clinical correlation is recommended. 3. Ancillary findings, as above. Jonh Jordan MD Percutaneous Cholangiogram 03/28/17 0000 Signed Impressions: Service Date/Time: Tuesday, March 28, 2017 15:41 - CONCLUSION: 1. Uncomplicated percutaneous cholecystostomy as above. 2. 60 mL of dark crankcase oil appearing bile was removed immediately following catheter placement. Jonh Jordan MD Myocardial Perfusion Scan Nuc Med 03/27/17 0000 Signed Impressions: Service Date/Time: February 12:19 - CONCLUSION: No evidence of fixed or reversible perfusion abnormalities. Normal wall motion and ejection fraction. RISK CATEGORY: Low (<1%% Annual Mortality Rate) Axel Aldrich MD Cholangiopancreatography MRI 03/27/17 0000 Signed Impressions: Service Date/Time: February 17:44 - CONCLUSION: Appearance consistent with acute cholecystitis. Small cystic mass in the uncinate of pancreas will require followup. Horace Whatley MD PE at Discharge GENERAL: This is a well-nourished, well-developed patient, in no apparent distress. CARDIOVASCULAR: Regular rate and rhythm without murmurs, gallops, or rubs. RESPIRATORY: Clear to auscultation. Breath sounds equal bilaterally. No wheezes , rales, or rhonchi. GASTROINTESTINAL: Abdomen soft, non-tender, nondistended. Normal active bowel sounds MUSCULOSKELETAL: Extremities without clubbing, cyanosis, or edema. NEURO: Alert & Oriented x4 to person, place, time, situation. Moves all ext x4 Hospital Course (1) Cholecystitis, acute ICD Codes: K81.0 - Acute cholecystitis Status: Acute Plan: 1. acute cholecystitis with epigastric pain. vomiting. rising wbc and lft sludge in gallbladder but no stone in cbd . s/p cholecystostomy tube by IR 03/28...pt then pulled out 2. elevated troponin. hx cad. lexiscan neg for ischemia 3. a/ckd 3. probably dehydration 4. htn 5. hypothyroidism. - Pt pulled out tube - gb currently decompressed and unable to replace (03/29) - pt clinically stable and tolerating PO inatke - levaquin/flagyl - pt cleared for discharge by General Surgery 04/01/17 - Pt discharged to home 04/02/17 - Pt instructed to complete course of levaquin/flagyl - Pt to f/u with Dr. Noble, General Surgery, in 2 weeks - Pt to f/u with Dr. Macdonald in 1 week - see discharge orders (2) LFT elevation ICD Codes: R79.89 - Other specified abnormal findings of blood chemistry Status: Acute Plan: - improving - see above (3) Acute worsening of stage 3 chronic kidney disease ICD Codes: N18.3 - Chronic kidney disease, stage 3 (moderate) Status: Acute Plan: - stable (4) CAD (coronary artery disease) ICD Codes: I25.10 - Atherosclerotic heart disease of [place] coronary artery without angina pectoris Status: Acute Plan: Stent reportedly placed in 2010. Last heart catheterization apparently 2010 which revealed patent stent in LAD with 30-40% stenosis and some other portions of LAD medical management elected at that time. Negative adenosine thallium stress test in July 2015. (5) GERD (gastroesophageal reflux disease) ICD Codes: K21.9 - Gastro-esophageal reflux disease without esophagitis Status: Chronic Plan: ppi (6) HTN (hypertension) ICD Codes: I10 - Essential (primary) hypertension Status: Chronic Plan: - stable - lisinopril, metoprolol (7) Hypothyroidism ICD Codes: E03.9 - Hypothyroidism, unspecified Status: Chronic Plan: Continue medication (8) PVD (peripheral vascular disease) ICD Codes: I73.9 - Peripheral vascular disease, unspecified Status: Chronic Plan: Continue medication. (9) Hyperlipidemia ICD Codes: E78.5 - Hyperlipidemia, unspecified Status: Chronic Plan: hold statin. lft elevated Pt Condition on Discharge: Stable Discharge Disposition: Disch w/ Home Health Serv Discharge Instructions DIET: Follow Instructions for: Heart Healthy Diet Activities you can perform: Weight Bearing as Solo Activities to Avoid: Strenuous Activity Follow up Referrals: PCP Follow-up - [address] Macdonald [facility]/ with [facility] Surgical - 2 Weeks with Husam Noble MD New Medications: Levofloxacin (Levofloxacin) 750 Mg Tablet 750 MG PO DAILY for Infection, #7 TAB 0 Refills Metronidazole (Metronidazole) 500 Mg Tab 500 MG PO TID for Infection, #21 TAB 0 Refills Lisinopril (Lisinopril) 10 Mg Tab 10 MG PO DAILY for HTN, #30 TAB 0 Refills Continued Medications: Aspirin (Aspirin) 81 Mg Chew 81 MG CHEW DAILY, TAB 0 Refills Clopidogrel (Clopidogrel) 75 Mg Tab 75 MG PO DAILY for Blood Clot Prevention, #30 TAB 0 Refills Cyanocobalamin ER (Vitamin B-12 ER) 2,000 Mcg Tab 5000 MCG PO DIRECTED for Nutritional Supplement, #1 BOTTLE 0 Refills Levothyroxine (Levothyroxine) 50 Mcg Tab 50 MCG PO DAILY for Thyroid, #30 TAB 0 Refills Metoprolol Tartrate (Metoprolol Tartrate) 25 Mg Tab 25 MG PO DAILY PRN for RAPID HEART RATE, #30 TAB 0 Refills Multiple Vitamin (Multiple Vitamin) 1 Tab 1 TAB PO DAILY for Nutritional Supplement, TAB 0 Refills Nitroglycerin SL (Nitroglycerin SL) 0.4 Mg Subl 0.4 MG SL DIRECTED PRN for CHEST PAIN, #100 TAB.SL 0 Refills ONE TABLET UNDER THE TONGUE NEEDED FOR CHEST PAIN, MAY REPEAT EVERY FIVE MINUTES FOR A TOTAL OF 3 DOSES OR CALL 911 IF NO RELIEF Ondansetron (Zofran) 4 Mg Tab 4 MG PO Q6HR PRN for NAUSEA OR VOMITING, #10 TAB 0 Refills Pantoprazole (Protonix) 40 Mg Tab 40 MG PO DAILY for Reflux, #20 TAB 0 Refills Discontinued Medications: Lisinopril (Lisinopril) 5 Mg Tab 5 MG PO DAILY for Blood Pressure Management, #30 TAB 0 Refills Naproxen Sodium-Diphenhydramine (Aleve PM) 220-25 Mg Tab 1 TAB PO HS PRN for PAIN/SLEEP, TAB 0 Refills Simvastatin (Simvastatin) 40 Mg Tab 40 MG PO HS for Cholesterol Management, #30 TAB 0 Refills Raj Mtz DO Apr 01, 2017 17:42
[2017-04-02] VITALS: BP 158/70; PULSE 57; RESP 20; TEMP 98.7; O2SAT 98
[2017-04-02 04:00] VITALS: BP 132/80; PULSE 70; RESP 20; TEMP 99.2; O2SAT 96
[2017-04-02] MEDS: LEVOTHYROXINE SODIUM 50 MCG TAB PO SCH (05:01)
[2017-04-02] MEDS: metroNIDAZOLE 500 MG INJ 100 ML IV SCH (05:01)
== END 2017-04-02 09:27 | disposition home health service (06) | DRG 445 ==
LOC: NEPE 15:23 → NEDA 19:23 → N04A 21:15
PROVIDERS: ADMIT Hospitalist; ATTEND Hospitalist
PROC: 0F9430Z Drainage of Gallbladder with Drainage Device, Percutaneous Approach (ICD-10-PCS; principal; 2017-03-28)
PROC: BF121ZZ Fluoroscopy of Gallbladder using Low Osmolar Contrast (ICD-10-PCS; 2017-03-28)
DX: K81.0 Acute cholecystitis (principal); K86.2 Cyst of pancreas; F03.90 Unspecified dementia, unspecified severity, without behavioral disturbance, psychotic disturbance, mood disturbance, and anxiety; N18.3 Chronic kidney disease, stage 3 (moderate); E86.0 Dehydration; N28.1 Cyst of kidney, acquired; I73.9 Peripheral vascular disease, unspecified; I12.9 Hypertensive chronic kidney disease with stage 1 through stage 4 chronic kidney disease, or unspecified chronic kidney disease; I25.10 Atherosclerotic heart disease of native coronary artery without angina pectoris; K21.9 Gastro-esophageal reflux disease without esophagitis; E03.9 Hypothyroidism, unspecified; E78.5 Hyperlipidemia, unspecified; I25.2 Old myocardial infarction; R74.0 Nonspecific elevation of levels of transaminase and lactic acid dehydrogenase [LDH]; K59.00 Constipation, unspecified; R74.8 Abnormal levels of other serum enzymes; R79.89 Other specified abnormal findings of blood chemistry; Z87.891 Personal history of nicotine dependence; Z88.0 Allergy status to penicillin; Z95.5 Presence of coronary angioplasty implant and graft
CPT/HCPCS: 47490; 74150; 74181; 76377; 76705; 78452; 80048; 80053; 80061; 80076; 82550; 83690; 84443; 84484; 85025; 85027; 85610; 85730; 93005; 93017; 93306; 96374; 96375; A9502; C1729; C1769; C1894; J1644; J1956; J2060; J2270; J2405; J2785; J3010; J7030; Q9967

== ENCOUNTER 2017-04-18 12:05 | Inpatient (IN) | payer MEDICARE ==
[2017-04-18] VITALS (10 sets, daily range): BP systolic 106–132; BP diastolic 57–69; PULSE 49–145; RESP 16–20; TEMP 97.5–98.2; O2SAT 97–100
[~2017-04-18] VITALS: Ht 170.2 cm; Wt 73.0 kg
[~2017-04-18 12:05] MED LIST changes: -ASPI81TA82 PO; -CILO50TA PO; -ENAL5TAB PO; +LEVO750T3 PO; -LISI-519 PO; +LISI10TA3 PO; -METO25 PO; +METR1TAB76 PO; -NAPR220T95 PO; -NITR0.4S SL; -PLAV75TA PO; -PROP150T PO; -SIMV40TA PO; -VITA100020 SL; +VITA20004 PO; -ZOCO40TA PO
--- NOTE | 2017-04-18 13:06 | PD ---
HPI Chief Complaint: Cardiac Complaint Time Seen by Provider: 12:50 Travel History International Travel<30 days: No Contact w/Intl Traveler<30days: No Traveled to known affect area: No History of Present Illness HPI Patient an 89-year-old male known to me from previous hospitalization presents to the emergency department for evaluation of mild altered mental status according to his , some mild dehydration as well. No chest pain no shortness of breath no abdominal pain no falls. He states that they went to an urgent care center today in he with found to be in SVT which apparently according to records he has a history of. He arrived to this hospital by private vehicle in on arrival he has no longer tachycardic. Has had recent cardiac workup which was not negative, has chronically elevated troponins. He has alert an awake oriented to self only initially later becoming oriented to place as well. PFSH Past Medical History Hx Anticoagulant Therapy: Yes Arthritis: No Asthma: No Autoimmune Disease: No Anxiety: No Depression: No Heart Rhythm Problems: No Cancer: No Cardiac Catheterization: Yes Cardiovascular Problems: Yes (HTN ) High Cholesterol: Yes Chemotherapy: No Chest Pain: Yes Congestive Heart Failure: No COPD: No Cerebrovascular Accident: No Diabetes: No Diminished Hearing: No Endocrine: Yes GERD: Yes Genitourinary: Yes Hiatal Hernia: No Heparin Induced Thrombocytopen: No Hypertension: Yes Immune Disorder: No Implanted Vascular Access Dvce: Yes Kidney Stones: No Musculoskeletal: No Neurologic: No Psychiatric: No Reproductive: No Respiratory: No Migraines: No Myocardial Infarction: Yes Pneumonia: Yes Radiation Therapy: No Renal Failure: No Seizures: No Sickle Cell Disease: No Sleep Apnea: No Thyroid Disease: Yes (HYPOTHYROID) Ulcer: No Past Surgical History Abdominal Surgery: No AICD: No Arteriovenous Shunt: No Body Medical Devices: CARDIAC STENT Cardiac Surgery: Yes (CARDIAC CATH WITH STENT PLACEMENT) Coronary Stent: Yes Ear Surgery: No Endocrine Surgery: No Eye Surgery: No Genitourinary Surgery: No Gynecologic Surgery: No Insulin Pump: No Joint Replacement: No Oral Surgery: No Pacemaker: No Thoracic Surgery: No Other Surgery: Yes (EYELIDS) Social History Alcohol Use: No Tobacco Use: No Substance Use: No Allergies-Medications (Allergen,Severity, Reaction): Coded Allergies: penicillin G (Unverified Allergy, Severe, Anaphylaxis, 03/26/17) Reported Meds & Prescriptions Reported Meds & Active Scripts Active Protonix (Pantoprazole Sodium) 40 Mg Tab 40 Mg PO DAILY Reported Vitamin B-12 ER (Cyanocobalamin) 2,000 Mcg Tab 5,000 Mcg PO DIRECTED Multiple Vitamin 1 Tab 1 Tab PO DAILY Aspirin 81 Mg Chew 81 Mg CHEW DAILY Metoprolol Tartrate 25 Mg Tab 25 Mg PO BID Nitroglycerin SL (Nitroglycerin) 0.4 Mg Subl 0.4 Mg SL DIRECTED PRN ONE TABLET UNDER THE TONGUE NEEDED FOR CHEST PAIN, MAY REPEAT EVERY FIVE MINUTES FOR A TOTAL OF 3 DOSES OR CALL 911 IF NO RELIEF Clopidogrel (Clopidogrel Bisulfate) 75 Mg Tab 75 Mg PO DAILY Levothyroxine (Levothyroxine Sodium) 50 Mcg Tab 50 Mcg PO DAILY Review of Systems Except as stated in HPI: all other systems reviewed are Neg Physical Exam Narrative GENERAL: Well-developed well-nourished, mildly confused, pleasant. SKIN: Focused skin assessment warm/dry. Decreased skin turgor, dry mucous membranes. HEAD: Atraumatic. Normocephalic. EYES: Pupils equal and round. No scleral icterus. No injection or drainage. ENT: No nasal bleeding or discharge. Mucous membranes pink and dry NECK: Trachea midline. No JVD. CARDIOVASCULAR: Regular rate and rhythm. No murmur appreciated. RESPIRATORY: No accessory muscle use. Clear to auscultation. Breath sounds equal bilaterally. GASTROINTESTINAL: Abdomen soft, non-tender, nondistended. Hepatic and splenic margins not palpable. MUSCULOSKELETAL: No obvious deformities. No clubbing. No cyanosis. No edema. NEUROLOGICAL: Awake and oriented to self, place, not contacts, not time. Cranial nerves II through grossly intact and nonfocal, 5 out of 5 strength in all 4 extremities PSYCHIATRIC: Appropriate mood and affect; insight and judgment normal. Data Data Last Documented VS Vital Signs Date Time Temp Pulse Resp B/P (MAP) Pulse Ox O2 Delivery O2 Flow Rate FiO2 04/18/17 13:34 56 106/59 (75) 99 04/18/17 12:08 98.2 20 Orders Orders Electrocardiogram (04/18/17 13:05) Complete Blood Count With Diff (04/18/17 13:05) Comprehensive Metabolic Panel (04/18/17 13:05) Creatine Kinase (Cpk) (04/18/17 13:05) Prothrombin Time / Inr (Pt) (04/18/17 13:05) Act Partial Throm Time (Ptt) (04/18/17 13:05) Troponin I (04/18/17 13:05) Thyroid Stimulating Hormone (04/18/17 13:05) Urinalysis - C+S If Indicated (04/18/17 13:05) Chest, Single Ap (04/18/17 13:05) Ct Brain W/O Iv Contrast(Rout) (04/18/17 13:05) Blood Glucose (04/18/17 13:05) Ecg Monitoring (04/18/17 13:05) Iv Access Insert/Monitor (04/18/17 13:05) Oximetry (04/18/17 13:05) Sodium Chloride 0.9% Flush (Ns Flush) (04/18/17 13:15) Urine Culture (04/18/17 13:38) Ciprofloxacin 400 Mg Premix (Cipro 400 M (04/18/17 14:45) Sodium Chlorid 0.9% 500 Ml Inj (Ns 500 M (04/18/17 14:45) Place In Observation (04/18/17 ) Code Status (04/18/17 14:57) Vital Signs (Adult) Q4H (04/18/17 14:57) Activity Oob With Assistance (04/18/17 14:57) Diet Heart Healthy (04/18/17 Dinner) Sodium Chloride 0.9% Flush (Ns Flush) (04/18/17 15:00) Sodium Chloride 0.9% Flush (Ns Flush) (04/18/17 21:00) Acetaminophen (Tylenol) (04/18/17 15:00) Ondansetron Inj (Zofran Inj) (04/18/17 15:00) Basic Metabolic Panel (Bmp) (04/19/17 06:00) Complete Blood Count With Diff (04/19/17 06:00) Electrocardiogram (04/18/17 14:57) Pt Request For Service (04/18/17 14:57) Scd Bilateral/Knee High ALIRIO.BID (04/18/17 14:57) Naloxone Inj (Narcan Inj) (04/18/17 15:00) Magnesium Hydroxide Liq (Milk Of Magnesi (04/18/17 15:00) Sodium Chlor 0.45% 1000 Ml Inj (2 Ns 1 (04/18/17 15:00) Admit Order (Ed Use Only) (04/18/17 ) Aspirin Chew (Aspirin Chew) (04/19/17 09:00) Clopidogrel (Plavix) (04/19/17 09:00) Levothyroxine (Synthroid) (04/19/17 06:00) Nitroglycerin Sl (Nitrostat Sl) (04/18/17 15:15) Pantoprazole (Protonix) (04/19/17 09:00) Labs Laboratory Tests Test 04/18/17 13:12 04/18/17 13:38 White Blood Count 9.2 TH/MM3 Red Blood Count 4.99 MIL/MM3 Hemoglobin 15.7 GM/DL Hematocrit 47.3 % Mean Corpuscular Volume 94.7 FL Mean Corpuscular Hemoglobin 31.5 PG Mean Corpuscular Hemoglobin Concent 33.3 % Red Cell Distribution Width 15.2 % Platelet Count 191 TH/MM3 Mean Platelet Volume 10.5 FL Neutrophils (%) (Auto) 80.2 % Lymphocytes (%) (Auto) 14.8 % Monocytes (%) (Auto) 4.4 % Eosinophils (%) (Auto) 0.3 % Basophils (%) (Auto) 0.3 % Neutrophils # (Auto) 7.4 TH/MM3 Lymphocytes # (Auto) 1.4 TH/MM3 Monocytes # (Auto) 0.4 TH/MM3 Eosinophils # (Auto) 0.0 TH/MM3 Basophils # (Auto) 0.0 TH/MM3 CBC Comment DIFF FINAL Differential Comment Prothrombin Time 11.0 SEC Prothromb Time International Ratio 1.1 RATIO Activated Partial Thromboplast Time 29.7 SEC Blood Urea Nitrogen 29 MG/DL Creatinine 2.56 MG/DL Random Glucose 169 MG/DL Total Protein 6.9 GM/DL Albumin 3.4 GM/DL Calcium Level 9.3 MG/DL Alkaline Phosphatase 111 U/L Aspartate Amino Transf (AST/SGOT) 28 U/L Alanine Aminotransferase (ALT/SGPT) 39 U/L Total Bilirubin 0.9 MG/DL Sodium Level 140 MEQ/L Potassium Level 5.0 MEQ/L Chloride Level 106 MEQ/L Carbon Dioxide Level 21.0 MEQ/L Anion Gap 13 MEQ/L Estimat Glomerular Filtration Rate 24 ML/MIN Total Creatine Kinase 44 U/L Troponin I 0.17 NG/ML Thyroid Stimulating Hormone 3rd Gen 2.090 uIU/ML Urine Color DARK-YELLOW Urine Turbidity HAZY Urine pH 5.0 Urine Specific [place] 1.018 Urine Protein 30 mg/dL Urine Glucose (UA) NEG mg/dL Urine Ketones TRACE mg/dL Urine Occult Blood SMALL Urine Nitrite NEG Urine Bilirubin NEG Urine Urobilinogen 2.0 MG/DL Urine Leukocyte Esterase LARGE Urine RBC 18 /hpf Urine WBC /hpf Urine Squamous Epithelial Cells 2 /hpf Urine Bacteria RARE /hpf Urine Hyaline Casts 131 /lpf Urine Mucus FEW /lpf Microscopic Urinalysis Comment CATH-CULTURE IND MDM Medical Decision Making Medical Screen Exam Complete: Yes Emergency Medical Condition: Yes Differential Diagnosis Dehydration, UTI, mild delirium. Narrative Course Patient room to the emergency department, mild altered mental status could be contributed to urinary tract infection some dehydration with a mild ANA PAULA, creatinine appears to run around 2 in today's 2.5. Patient is not uncircumcised , as no obvious smegma or erythema on the glans penis. Could consider to be contamination but could be consistent with UTI. Discussed with Dr. Terry Mtz for observation. Patient appears well in no indication for sepsis, given a dose of Rocephin in the emergency department as well as 500 cc normal saline bolus per Diagnosis Primary Impression: Altered mental status Additional Impressions: Urinary tract infection Dehydration Admitting Information Admitting Physician Requests: Observation Condition: Stable dK Abraham MD Apr 18, 2017 13:06
[2017-04-18] MEDS ORDERED: SODIUM CHLORIDE 0.9% FLUSH 10 ML FLUSH IV FLUSH PRN ×2 (13:15→15:00)
[2017-04-18 13:28] LABS: AUTOMATED NEUTROPHIL # 7.4 TH/MM3 (1.8-7.7); BASOPHIL % 0.3 % (0.0-2.0); EOSINOPHIL % 0.3 % (0.0-4.0); HEMATOCRIT 47.3 % (39.0-51.0); HEMOGLOBIN 15.7 GM/DL (13.0-17.0); LYMPH % 14.8 % (9.0-44.0); LYMPHOCYTE # 1.4 TH/MM3 (1.0-4.8); MEAN CELL VOLUME 94.7 FL (80.0-100.0); MEAN CORPUSCULAR HEMOGLOBIN 31.5 PG (27.0-34.0); MEAN CORPUSCULAR HGB CONC 33.3 % (32.0-36.0); MEAN PLATELET VOLUME 10.5 FL (7.0-11.0); MONO % 4.4 % (0.0-8.0); MONOCYTE # 0.4 TH/MM3 (0-0.9); NEUT % 80.2 % (16.0-70.0); PLATELET COUNT 191 TH/MM3 (150-450); RED BLOOD COUNT 4.99 MIL/MM3 (4.50-5.90); RED CELL DISTRIBUTION WIDTH 15.2 % (11.6-17.2); WHITE BLOOD COUNT 9.2 TH/MM3 (4.0-11.0)
[2017-04-18 13:46] LABS: INTERNATIONAL NORMALIZED RATIO 1.1 RATIO
[2017-04-18 13:50] LABS: ALBUMIN 3.4 GM/DL (3.4-5.0); AST (GOT) 28 U/L (15-37); BLOOD UREA NITROGEN 29 MG/DL (7-18); CALCIUM 9.3 MG/DL (8.5-10.1); CHLORIDE 106 MEQ/L (98-107); CREATININE 2.56 MG/DL (0.60-1.30); GLOMERULAR FILTRATION RATE 24 ML/MIN (>89); GLUCOSE,RANDOM 169 MG/DL (74-106); SODIUM (NA) 140 MEQ/L (136-145)
--- NOTE | 2017-04-18 13:55 | RADRPT ---
EXAM DATE/TIME: 04/18/2017 13:16 [facility] COMPARISON: CHEST SINGLE AP, March 26, 2017, 1:39. INDICATIONS : Difficulty breathing with weakness. MEDICAL HISTORY : None. SURGICAL HISTORY : None. ENCOUNTER: Initial ACUITY: 1 day PAIN SCORE: 0/10 LOCATION: Bilateral chest FINDINGS: A single view of the chest demonstrates the lungs to be symmetrically aerated without evidence of mas s, infiltrate or effusion. The cardiomediastinal contours are unremarkable with calcification again noted in the aortic knob Osseous structures are intact. CONCLUSION: Normal examination for a patient of this age. No significant change has occurred. Zion Molina MD on April 18, 2017 at 13:52 Board Certified Radiologist. This report was verified electronically.
[2017-04-18 14:02] LABS: ALKALINE PHOSPHATASE 111 U/L (45-117); ALT (GPT) 39 U/L (12-78); TOTAL BILIRUBIN ADULT 0.9 MG/DL (0.2-1.0); TOTAL PROTEIN 6.9 GM/DL (6.4-8.2); TROPONIN I 0.17 NG/ML (0.02-0.05)
[2017-04-18 14:09] LABS: BACTERIA, URINE RARE /hpf; BLOOD, URINE SMALL (NEG); GLUCOSE,URINE NEG (NEG); HYALINE CAST, URINE 131 /lpf (RARE); KETONE, URINE TRACE mg/dL (NEG); MUCUS URINE FEW /lpf (OCC); NITRITE,URINE NEG (NEG); SQUAMOUS EPITHELIAL CELL URINE 2 /hpf (0-5); URINE COLOR DARK-YELLOW (YELLW/STRAW); URINE LEUKOCYTE ESTERASE LARGE (NEG)
--- NOTE | 2017-04-18 14:11 | RADRPT ---
EXAM DATE/TIME: 04/18/2017 13:57 [facility] COMPARISON: No previous studies available for comparison. INDICATIONS : Dizziness with low blood pressure. RADIATION DOSE: 39.96 CTDIvol (mGy) MEDICAL HISTORY : Cardiovascular disease. Hypertension. Renal insufficiency. SURGICAL HISTORY : None. ENCOUNTER: Initial ACUITY: 1 day PAIN SCALE: 4/10 LOCATION: Bilateral cranial TECHNIQUE: Multiple contiguous axial images were obtained of the head. Using automated exposure control and adj ustment of the mA and/or kV according to patient size, radiation dose was kept as low as reasonably a chievable to obtain optimal diagnostic quality images. DICOM format image data is available electro nically for review and comparison. FINDINGS: CEREBRUM: The ventricles are normal for age. No evidence of midline shift, mass lesion, hemorrhage or acute in farction. No extra-axial fluid collections are seen. POSTERIOR FOSSA: The cerebellum and brainstem are intact. The 4th ventricle is midline. The cerebellopontine angle i s unremarkable. EXTRACRANIAL: The visualized portion of the orbits is intact. Minimal mucoperiosteal thickening in the right maxill barrera sinus. SKULL: The calvaria is intact. No evidence of skull fracture. CONCLUSION: Normal examination for a patient of this age. Zion Molina MD on April 18, 2017 at 14:09 Board Certified Radiologist. This report was verified electronically.
[2017-04-18 14:12] LABS: BILIRUBIN, URINE NEG (NEG)
[2017-04-18] MEDS ORDERED: SODIUM CHLORID 0.9% 500 ML INJ 500 ML IV ONE (14:45)
[2017-04-18] MEDS ORDERED: CIPROFLOXACIN 400 MG PREMIX 200 ML IV ONE (14:45)
[2017-04-18] MEDS ORDERED: MAGNESIUM HYDROXIDE SUSP 30 ML CUP PO PRN (15:00)
[2017-04-18] MEDS ORDERED: ONDANSETRON HCL 4 MG/2 ML VIAL IVP PRN (15:00)
[2017-04-18] MEDS ORDERED: ACETAMINOPHEN 325 MG TAB PO PRN (15:00)
[2017-04-18] MEDS ORDERED: NALOXONE HCL 0.4 MG/ML AMP IV PUSH PRN (15:00)
[2017-04-18] MEDS ORDERED: NITROGLYCERIN 0.4 MG SL 25 TABS/BTL SL PRN (15:15)
--- NOTE | 2017-04-18 15:40 | HHI.HP ---
HPI Service [facility] Hospitalists Primary Care Physician Charles Macdonald M.D. Admission Diagnosis Dehdyration, AMS, Complicated UTI Chief Complaint: high HR at PCP office Travel History International Travel<30 Days: No Contact w/Intl Traveler <30 Da: No Traveled to Known Affected Are: No History of Present Illness This is an 89-year-old male with dementia and history of hypertension, paroxysmal SVT, chronic kidney disease stage III, hypothyroidism, peripheral vascular disease, GERD and coronary artery disease with distant history of cardiac stent placement. Patient is a poor historian and therefore information gathered from patient as well as significant other and prior computerized charting. Patient was seen earlier by his primary care provider Dr. Charles Macdonald for low blood pressure and rapid pulse. Appears that patient had outpatient EKG which revealed SVT with rate of 167. Actual EKG not currently available. Patient and significant other then drove themselves to the emergency department. Patient offers no specific complaints at this time. EKG obtained in the emergency department reveals SB rate 51 bpm Urinalysis reviewed and reveals possible UTI patient started on Cipro IV in the emergency department, urine culture pending Review of Systems ROS Limitations: Poor Historian Past Family Social History Past Medical History 1) hypertension 2) coronary artery disease - History of SD History of coronary stents: PCI to OM and LAD with Xience Stent August 2010 3) paroxysmal supraventricular tachycardia 4) chronic kidney disease, stage III 5) hypothyroidism 6) peripheral vascular disease 7) GERD Past Surgical History 1) eye surgery, unspecified 2) coronary stent placement Reported Medications Protonix (Pantoprazole Sodium) 40 Mg Tab 40 Mg PO DAILY Vitamin B-12 ER (Cyanocobalamin) 2,000 Mcg Tab 5,000 Mcg PO DIRECTED Multiple Vitamin 1 Tab 1 Tab PO DAILY Aspirin 81 Mg Chew 81 Mg CHEW DAILY Metoprolol Tartrate 25 Mg Tab 25 Mg PO DAILY Nitroglycerin SL (Nitroglycerin) 0.4 Mg Subl 0.4 Mg SL DIRECTED PRN ONE TABLET UNDER THE TONGUE NEEDED FOR CHEST PAIN, MAY REPEAT EVERY FIVE MINUTES FOR A TOTAL OF 3 DOSES OR CALL 911 IF NO RELIEF Clopidogrel (Clopidogrel Bisulfate) 75 Mg Tab 75 Mg PO DAILY Levothyroxine (Levothyroxine Sodium) 50 Mcg Tab 50 Mcg PO DAILY Allergies: Coded Allergies: penicillin G (Unverified Allergy, Severe, Anaphylaxis, 03/26/17) Active Ordered Medications Current Medications Medications (Trade) Dose Ordered Sig/Beto Route Start Time Stop Time Status Last Admin Ciprofloxacin/ Dextrose 200 ml @ 200 mls/hr ONCE ONCE IV 04/18/17 14:45 04/18/17 15:44 04/18/17 14:51 Sodium Chloride 500 ml @ 500 mls/hr BOLUS ONCE IV 04/18/17 14:45 04/18/17 15:44 04/18/17 14:51 (NS Flush) 2 ml UNSCH PRN IV FLUSH 04/18/17 15:00 (NS Flush) 2 ml BID IV FLUSH 04/18/17 21:00 (Tylenol) 650 mg Q4H PRN PO 04/18/17 15:00 (Zofran Inj) 4 mg Q6H PRN IVP 04/18/17 15:00 (Narcan Inj) 0.4 mg UNSCH PRN IV PUSH 04/18/17 15:00 (Milk Of Magnmary Liq) 30 ml Q12H PRN PO 04/18/17 15:00 Sodium Chloride 1,000 ml @ 84 mls/hr [id number] IV 04/18/17 15:00 04/19/17 14:48 (Aspirin Chew) 81 mg DAILY CHEW 04/19/17 09:00 (Plavix) 75 mg DAILY PO 04/19/17 09:00 (Synthroid) 50 mcg DAILY@0600 PO 04/19/17 06:00 (Nitrostat Sl) 0.4 mg Q1H PRN SL 04/18/17 15:15 (Protonix) 40 mg DAILY PO 04/19/17 09:00 Family History Noncontributory Social History Lives with his significant other 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 Physical Exam Vital Signs Vital Signs Date Time Temp Pulse Resp B/P (MAP) Pulse Ox O2 Delivery O2 Flow Rate FiO2 04/18/17 13:34 56 106/59 (75) 99 04/18/17 12:54 49 97 04/18/17 12:08 98.2 60 20 111/57 (75) 98 Physical Exam GENERAL: This is elderly confused 89 -year-old male with dementia alert to person only SKIN: No rashes, ecchymoses or lesions. Cool and dry. HEAD: Atraumatic. Normocephalic. No temporal or scalp tenderness. EYES: Extraocular motions intact. No scleral icterus. No injection or drainage. CARDIOVASCULAR: Regular bradycardia RESPIRATORY: Clear to auscultation. Breath sounds equal bilaterally. GASTROINTESTINAL: Abdomen soft, non-tender, nondistended. MUSCULOSKELETAL: Extremities without clubbing, cyanosis, or edema. No joint tenderness, effusion, or edema noted. No calf tenderness. Negative Homans sign bilaterally. NEUROLOGICAL: Awake and alert, oriented to person only. No focal deficits. Motor and sensory grossly within normal limits. 4 out of 5 muscle strength in all muscle groups. Laboratory Laboratory Tests Test 04/18/17 13:12 04/18/17 13:38 White Blood Count 9.2 Red Blood Count 4.99 Hemoglobin 15.7 Hematocrit 47.3 Mean Corpuscular Volume 94.7 Mean Corpuscular Hemoglobin 31.5 Mean Corpuscular Hemoglobin Concent 33.3 Red Cell Distribution Width 15.2 Platelet Count 191 Mean Platelet Volume 10.5 Neutrophils (%) (Auto) 80.2 Lymphocytes (%) (Auto) 14.8 Monocytes (%) (Auto) 4.4 Eosinophils (%) (Auto) 0.3 Basophils (%) (Auto) 0.3 Neutrophils # (Auto) 7.4 Lymphocytes # (Auto) 1.4 Monocytes # (Auto) 0.4 Eosinophils # (Auto) 0.0 Basophils # (Auto) 0.0 CBC Comment DIFF FINAL Differential Comment Prothrombin Time 11.0 Prothromb Time International Ratio 1.1 Activated Partial Thromboplast Time 29.7 Blood Urea Nitrogen 29 Creatinine 2.56 Random Glucose 169 Total Protein 6.9 Albumin 3.4 Calcium Level 9.3 Alkaline Phosphatase 111 Aspartate Amino Transf (AST/SGOT) 28 Alanine Aminotransferase (ALT/SGPT) 39 Total Bilirubin 0.9 Sodium Level 140 Potassium Level 5.0 Chloride Level 106 Carbon Dioxide Level 21.0 Anion Gap 13 Estimat Glomerular Filtration Rate 24 Total Creatine Kinase 44 Troponin I 0.17 Thyroid Stimulating Hormone 3rd Gen 2.090 Urine Color DARK-YELLOW Urine Turbidity HAZY Urine pH 5.0 Urine Specific [place] 1.018 Urine Protein 30 Urine Glucose (UA) NEG Urine Ketones TRACE Urine Occult Blood SMALL Urine Nitrite NEG Urine Bilirubin NEG Urine Urobilinogen 2.0 Urine Leukocyte Esterase LARGE Urine RBC 18 Urine WBC Urine Squamous Epithelial Cells 2 Urine Bacteria RARE Urine Hyaline Casts 131 Urine Mucus FEW Microscopic Urinalysis Comment CATH-CULTURE IND Date/Time Source Procedure Growth Status 04/18/17 13:38 Urine Catheterized Urine Urine Culture Pending Received Result Diagram: 04/18/17 1312 04/18/17 1312 Imaging Last Impressions Head CT 04/18/17 1305 Signed Impressions: Service Date/Time: Tuesday, April 18, 2017 13:57 - CONCLUSION: Normal examination for a patient of this age. Zion Molina MD Chest X-Ray 04/18/17 1305 Signed Impressions: Service Date/Time: Tuesday, April 18, 2017 13:16 - CONCLUSION: Normal examination for a patient of this age. No significant change has occurred. MD Jesus Swift VTE Risk Assessment Jesus VTE Risk Assessment: Mod/High Risk (score >= 2) Caprini Risk Assessment Model Point Value = 1 Point Value = 2 Point Value = 3 Point Value = 5 Age 41-60 Minor surgery BMI > 25 kg/m2 Swollen legs Varicose veins or History of unexplained or recurrent spontaneous Oral contraceptives or hormone replacement Sepsis (< 1 month) Serious lung disease, including pneumonia (< 1 month) Abnormal pulmonary function Acute myocardial infarction Congestive heart failure (< 1 month) History of inflammatory bowel disease Medical patient at bed rest Age 61-74 Arthroscopic surgery Major open surgery (> 45 min) Laparoscopic surgery (> 45 min) Malignancy Confined to bed (> 72 hours) Immobilizing plaster cast Central venous access Age >= 75 History of VTE Family history of VTE Factor V Leiden Prothrombin [id number] Lupus anticoagulant Anticardiolipin antibodies Elevated serum homocysteine Heparin-induced thrombocytopenia Other congenital or acquired thrombophilia Stroke (< 1 month) Elective arthroplasty Hip, pelvis, or leg fracture Acute spinal cord injury (< 1 month) Prophylaxis Regimen Total Risk Factor Score Risk Level Prophylaxis Regimen 0-1 Low Early ambulation 2 Moderate Order ONE of the following: *Sequential Compression Device (SCD) *Heparin 5000 units SQ BID 3-4 Higher Order ONE of the following medications: *Heparin 5000 units SQ TID *Enoxaparin/Lovenox 40 mg SQ daily (WT < 150 kg, CrCl > 30 mL/min) *Enoxaparin/Lovenox 30 mg SQ daily (WT < 150 kg, CrCl > 10-29 mL/min) *Enoxaparin/Lovenox 30 mg SQ BID (WT < 150 kg, CrCl > 30 mL/min) AND/OR *Sequential Compression Device (SCD) 5 or more Highest Order ONE of the following medications: *Heparin 5000 units SQ TID (Preferred with Epidurals) *Enoxaparin/Lovenox 40 mg SQ daily (WT < 150 kg, CrCl > 30 mL/min) *Enoxaparin/Lovenox 30 mg SQ daily (WT < 150 kg, CrCl > 10-29 mL/min) *Enoxaparin/Lovenox 30 mg SQ BID (WT < 150 kg, CrCl > 30 mL/min) AND *Sequential Compression Device (SCD) Assessment and Plan Problem List: (1) SVT (supraventricular tachycardia) ICD Codes: I47.1 - Supraventricular tachycardia Status: Acute Plan: Patient was seen earlier by his primary care provider Dr. Charles Macdonald for low blood pressure and rapid pulse. Appears that patient had outpatient EKG sinus rhythm of SVT with rate of 167. Actual EKG not currently available. - EKG in emergency department reviewed and reveals SB rate 51 bpm - continuous telemetry - Consult cardiology - continue metoprolol 25 mg PO BID withhold parameters (2) Urinary tract infection ICD Codes: N39.0 - Urinary tract infection, site not specified Status: Acute Plan: - Urinalysis reviewed and reveals negative nitrates and leukocyte esterase positive rare urine bacteria culture pending - Pain started on Ciprofloxacin IV in the emergency department will continue and await culture results (3) CAD (coronary artery disease) ICD Codes: I25.10 - Atherosclerotic heart disease of [place] coronary artery without angina pectoris Status: Chronic Plan: Continue patient's home aspirin and Plavix (4) Hypothyroidism ICD Codes: E03.9 - Hypothyroidism, unspecified Status: Chronic Plan: Continue patient's home levothyroxine 50 mcg daily (5) GERD (gastroesophageal reflux disease) ICD Codes: K21.9 - Gastro-esophageal reflux disease without esophagitis Status: Chronic Plan: Continue patient's home Protonix Assessment and Plan Patient examined. Assessment and plan formulated with Idalmis CARVALHO I agree with the above. Idalmis Morales Apr 18, 2017 15:40 Raj Mtz DO Apr 22, 2017 23:22
[2017-04-18] MEDS: SODIUM CHLOR 0.45% 1000 ML INJ 1,000 ML IV SCH (18:11)
[2017-04-18] MEDS: SODIUM CHLORIDE 0.9% FLUSH 10 ML FLUSH IV FLUSH SCH (21:18)
[2017-04-18] MEDS: METOPROLOL TARTRATE 25 MG TAB PO SCH (21:47)
[2017-04-19] VITALS (19 sets, daily range): BP systolic 126–144; BP diastolic 63–78; PULSE 42–72; RESP 16–22; TEMP 97.6–98.6; O2SAT 96–100
[2017-04-19] MEDS: SODIUM CHLOR 0.45% 1000 ML INJ 1,000 ML IV SCH ×2 (02:55→09:19)
[2017-04-19] MEDS: LEVOTHYROXINE SODIUM 50 MCG TAB PO SCH (06:00)
[2017-04-19] MEDS ORDERED: CLOPIDOGREL 75 MG TAB PO SCH (09:00)
[2017-04-19] MEDS: METOPROLOL TARTRATE 25 MG TAB PO SCH ×2 (09:00→21:00)
[2017-04-19] MEDS: SODIUM CHLORIDE 0.9% FLUSH 10 ML FLUSH IV FLUSH SCH ×2 (09:00→22:27)
[2017-04-19] MEDS ORDERED: ASPIRIN 81 MG CHEW TAB CHEW SCH (09:00)
[2017-04-19] MEDS: PANTOPRAZOLE SOD 40 MG DELAYED RELEASE TAB PO SCH (09:17)
[2017-04-19 10:22] LABS: AUTOMATED NEUTROPHIL # 3.6 TH/MM3 (1.8-7.7); BASOPHIL % 0.4 % (0.0-2.0); EOSINOPHIL # 0.1 TH/MM3 (0-0.4); EOSINOPHIL % 2.4 % (0.0-4.0); HEMATOCRIT 42.4 % (39.0-51.0); HEMOGLOBIN 14.3 GM/DL (13.0-17.0); LYMPHOCYTE # 1.2 TH/MM3 (1.0-4.8); MEAN CELL VOLUME 93.8 FL (80.0-100.0); MEAN CORPUSCULAR HEMOGLOBIN 31.5 PG (27.0-34.0); MEAN CORPUSCULAR HGB CONC 33.6 % (32.0-36.0); MEAN PLATELET VOLUME 10.1 FL (7.0-11.0); MONO % 6.9 % (0.0-8.0); MONOCYTE # 0.4 TH/MM3 (0-0.9); NEUT % 67.3 % (16.0-70.0); PLATELET COUNT 147 TH/MM3 (150-450); RED BLOOD COUNT 4.52 MIL/MM3 (4.50-5.90); RED CELL DISTRIBUTION WIDTH 14.6 % (11.6-17.2); WHITE BLOOD COUNT 5.4 TH/MM3 (4.0-11.0)
[2017-04-19 10:44] LABS: BICARBONATE 26.2 MEQ/L (21.0-32.0); CALCIUM 8.8 MG/DL (8.5-10.1); CREATININE 1.92 MG/DL (0.60-1.30)
[2017-04-19 11:47] LABS: AUTOMATED NEUTROPHIL # 4.6 TH/MM3 (1.8-7.7); BASOPHIL % 0.4 % (0.0-2.0); EOSINOPHIL # 0.1 TH/MM3 (0-0.4); EOSINOPHIL % 1.8 % (0.0-4.0); HEMATOCRIT 40.2 % (39.0-51.0); HEMOGLOBIN 13.6 GM/DL (13.0-17.0); LYMPHOCYTE # 1.4 TH/MM3 (1.0-4.8); MEAN CELL VOLUME 94.1 FL (80.0-100.0); MEAN CORPUSCULAR HEMOGLOBIN 31.9 PG (27.0-34.0); MEAN CORPUSCULAR HGB CONC 33.9 % (32.0-36.0); MEAN PLATELET VOLUME 9.9 FL (7.0-11.0); MONO % 7.6 % (0.0-8.0); MONOCYTE # 0.5 TH/MM3 (0-0.9); NEUT % 69.2 % (16.0-70.0); PLATELET COUNT 161 TH/MM3 (150-450); RED BLOOD COUNT 4.27 MIL/MM3 (4.50-5.90); RED CELL DISTRIBUTION WIDTH 14.9 % (11.6-17.2); WHITE BLOOD COUNT 6.6 TH/MM3 (4.0-11.0)
[2017-04-19 11:55] LABS: INTERNATIONAL NORMALIZED RATIO 1.1 RATIO
[2017-04-19] MEDS ORDERED: SODIUM CHLORIDE 0.9% 50 ML BAG IVF ONE (12:00)
--- NOTE | 2017-04-19 12:04 | RADRPT ---
EXAM DATE/TIME: 04/19/2017 11:45 [facility] COMPARISON: CT BRAIN W/O CONTRAST, April 18, 2017, 13:57. INDICATIONS : Stroke alert; right facial droop, difficulty speaking. RADIATION DOSE: 39.69 CTDIvol (mGy) This report was called by myself to Dr. Poe at 11: 56 hours. MEDICAL HISTORY : Cardiovascular disease. Hypertension. Gastroesophageal reflux disease. SURGICAL HISTORY : None. ENCOUNTER: Initial ACUITY: 1 day PAIN SCALE: Non-responsive LOCATION: cranial TECHNIQUE: Multiple contiguous axial images were obtained of the head. Using automated exposure control and adj ustment of the mA and/or kV according to patient size, radiation dose was kept as low as reasonably a chievable to obtain optimal diagnostic quality images. DICOM format image data is available electro nically for review and comparison. FINDINGS: There is no evidence for intracranial hemorrhage, mass effect, mass lesions, or edema. The visualize d bony structures appear intact. Slight degree of brain atrophy is seen. Slight periventricular whit e matter changes are seen nonspecific mostly consistent with chronic small vessel ischemic changes. There are no signs of acute infarction for technique. There is mucoperiosteal thickening within the r ight maxillary sinus and extra-axial fluid collection is seen in the left middle cranial fossa probab ly a small arachnoid cyst measures 2.5 cm. CONCLUSION: 1. Slight atrophic and small vessel ischemic changes without any evidence for acute hemorrhage or mas s effect and small arachnoid cyst left middle cranial fossa. 2. Chronic sinusitis. Jerzy Rodarte MD on April 19, 2017 at 11:55 Board Certified Radiologist. This report was verified electronically.
[2017-04-19] MEDS ORDERED: IODIXANOL 320 MG/ML 10 ML VIAL (for Rad CT) IVCONTRAST ONE (12:06)
[2017-04-19 12:09] LABS: TROPONIN I 0.17 NG/ML (0.02-0.05)
--- NOTE | 2017-04-19 12:26 | RADRPT ---
EXAM DATE/TIME: 04/19/2017 12:02 [facility] COMPARISON: CT BRAIN W/O CONTRAST, April 19, 2017, 11:45. INDICATIONS : Stroke alert; right side facial droop. IV CONTRAST: 49 cc Visipaque (iodixanol) IV ; Cumulative dose for multiple exams. RADIATION DOSE: 28.64 CTDIvol (mGy) ; Combined studies MEDICAL HISTORY : Cardiovascular disease. Hypertension. Gastroesophageal reflux disease. SURGICAL HISTORY : None. ENCOUNTER: Initial ACUITY: 1 day PAIN SCALE: Non-responsive LOCATION: cranial TECHNIQUE: Volumetric scanning was performed using a multi-row detector CT scanner. The data was post processed with a variety of visualization algorithms including full volume maximum intensity projection, multi -planar sliding thin slab reformation, curved planar reformation, and surface rendering techniques. Using automated exposure control and adjustment of the mA and/or kV according to patient size, radiat ion dose was kept as low as reasonably achievable to obtain optimal diagnostic quality images. DICO M format image data is available electronically for review and comparison. FINDINGS: No significant vascular malformations, vessel truncation or aneurysmal dilatations are seen. CONCLUSION: Unremarkable study. Jerzy Rodarte MD on April 19, 2017 at 12:22 Board Certified Radiologist. This report was verified electronically.
[2017-04-19] MEDS ORDERED: ALTEPLASE BOLUS 9 MG/9 ML SYR IV ONE (12:30)
--- NOTE | 2017-04-19 12:32 | MB ---
cc: MAUREEN ADRIAN M.D. DATE OF CONSULTATION: 04/19/2017. REASON FOR CONSULTATION: 89-year-old man called for a stroke alert. He had come in with SVT and came in yesterday through the ER and change in mental status, and according to his some mild dehydration and was found to be in SVT on arrival to the hospital. Recent cardiac workup. He was alert and oriented to self only and then later to place. MEDICATIONS AT HOME: At home he was on vitamin B12, a multivitamin, 81 of aspirin, metoprolol, nitroglycerin, Plavix and thyroid medications. ALLERGIES: PENICILLIN. SOCIAL HISTORY: Not a smoker or a drinker and lives with his . REVIEW OF SYSTEMS: Unable to obtain from the patient. PAST MEDICAL HISTORY: 1. Some cardiac catheterization in the past. 2. History of hypertension. 3. Stage III kidney disease. 4. Supraventricular tachycardia. 5. Peripheral vascular disease. 6. Gastroesophageal reflux disease (GERD). 7. Coronary artery disease. 8. Stent placed remotely. PHYSICAL EXAMINATION: VITAL SIGNS: On exam, he is in sinus rhythm at this time, 130/71, 50, afebrile. NECK: There are no carotid bruits. HEART: Regular rhythm. I do not detect a murmur. NEUROLOGICAL EXAMINATION: He was saying some things. He would not say "hello" but he was saying some things such as, "I can hear. I hear what you ask" but would not follow any commands and now unfortunately is not speaking at all. He has had a right facial droop. He moves all of his extremities well. The toes were downgoing. He could not count fingers. He is legally blind. LABS: His CBC is normal. His creatinine is 1.9, BUN 28, Basic metabolic profile otherwise normal. Glucose 150 earlier and right now it is 108. Troponin was 0.17 on admission. He has a history of elevated troponins. LDL cholesterol was normal last month. TSH normal. Urinalysis on this admission shows a large amount of leukocyte esterase, innumerable white cells. Coags were normal yesterday. IMAGING STUDIES: CT scan of the brain, preliminary, is negative. CURRENT MEDICATIONS: 1. He is on aspirin. 2. Plavix. 3. Protonix. 4. Synthroid. 5. Lopressor. 6. Nitrostat. 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 RECOMMENDATIONS AND PLAN: 1. We are going to go ahead and give him tPA. 2. Will get a CTA of the neck and [facility] [place] [facility] [place]. 3. They are having trouble with the IV access for the CTA at this time. 4. I would put his NIH Stroke Scale at an 8 right now. MD FELISHA Veras/RADHA /11:44 AM /12:10 PM
--- NOTE | 2017-04-19 12:36 | RADRPT ---
EXAM DATE/TIME: 04/19/2017 12:02 [facility] COMPARISON: No previous studies available for comparison. INDICATIONS : Stroke alert; right side facial droop. IV CONTRAST: 49 cc Visipaque (iodixanol) IV ; Cumulative dose for multiple exams. RADIATION DOSE: 28.64 CTDIvol (mGy) ; Combined studies MEDICAL HISTORY : Cardiovascular disease. Hypertension. Gastroesophageal reflux disease. SURGICAL HISTORY : None. ENCOUNTER: Initial ACUITY: 1 day PAIN SCALE: Non-responsive LOCATION: neck Elevated flow velocities and ICA/CCA ratios have been found to correlate with increased degrees of vessel stenosis, calculated as percentage of diameter relative to a normal segment of distal ICA/CCA. TECHNIQUE: Volumetric scanning was performed using a multirow detector CT scanner. The data was post processed with a variety of visualization algorithms including full-volume maximum intensity projection, multip lanar sliding thin-slab reformation, curved-planar reformation, and surface-rendering techniques. Us ing automated exposure control and adjustment of the mA and/or kV according to patient size, radiatio n dose was kept as low as reasonably achievable to obtain optimal diagnostic quality images. DICOM f ormat image data is available electronically for review and comparison. FINDINGS: AORTIC ARCH: There are atherosclerotic calcifications of the aorta due to chronic atherosclerotic disease. There i s atherosclerotic plaquing involving the left subclavian artery with approximate 40% stenosis. The in nominate artery and common carotid arteries are intact. RIGHT CAROTID: The common carotid artery is intact. The carotid bulb has a normal configuration without ulceration o r narrowing. The internal carotid artery lumen is smooth without stenosis. The external carotid baldemar ry is intact. LEFT CAROTID: Atherosclerotic plaquing is identified without any significant stenosis. VERTEBRALS: The vertebral arteries have a symmetric diameter. No stenotic lesions are seen. CONCLUSION: Mild stenosis of the subclavian artery and the carotid arteries do not demonstrate any significant st enosis. Jerzy Rodarte MD on April 19, 2017 at 12:32 Board Certified Radiologist. This report was verified electronically.
[2017-04-19] MEDS ORDERED: ALTEPLASE DRIP IV ONE (13:00)
--- NOTE | 2017-04-19 13:04 | PD.CONS ---
HPI Service Critical Care Medicine Consult Requested By [facility] Reason for Consult Acute CVA, critical care management Primary Care Physician Charles Macdonald M.D. History of Present Illness 89 y/o man developed acute expressive aphasia and right facial droop this morning while a patient in [facility]. He was normal immediately prior, aside from possibly early dementia and sundowning. CT Head negative and after evaluation by the Neurology Service he received tPA for a diagnosis of acute ischemic stroke. The patient appears to be right handed. I met him upon his arrival to the [facility]. Past history is significant for paroxysmal SVT (for which he was admitted this time), hypertension, CAD with stent, hypothyroidism. Normotensive on arrival. Head CT normal for age. CTA head without acute pathology. Extracranial cervical arterial circulation without significant stenosis. Review of Systems ROS Unobtainable. Past Family Social History Allergies: Coded Allergies: penicillin G (Unverified Allergy, Severe, Anaphylaxis, 03/26/17) Past Medical History Past Medical History Hx Anticoagulant Therapy: Yes Cardiac Catheterization: Yes Cardiovascular Problems: Yes (HTN ) High Cholesterol: Yes Chemotherapy: No Chest Pain: Yes Endocrine: Yes GERD: Yes Genitourinary: Yes Hiatal Hernia: No Heparin Induced Thrombocytopenia: No Hypertension: Yes Immune Disorder: No Implanted Vascular Access Dvce: Yes Myocardial Infarction: Yes Pneumonia: Yes Thyroid Disease: Yes (HYPOTHYROID) Ulcer: No Past Surgical History Body Medical Devices: CARDIAC STENT Cardiac Surgery: Yes (CARDIAC CATH WITH STENT PLACEMENT) Coronary Stent: Yes Other Surgery: Yes (EYELIDS) Social History Alcohol Use: No Tobacco Use: No Substance Use: No Allergies-Medications Allergies-Medications (Allergen,Severity, Reaction): Coded Allergies: penicillin G (Unverified Allergy, Severe, Anaphylaxis, 03/26/17) Reported Meds & Prescriptions Reported Meds & Active Scripts Active Protonix (Pantoprazole Sodium) 40 Mg Tab 40 Mg PO DAILY Reported Vitamin B-12 ER (Cyanocobalamin) 2,000 Mcg Tab 5,000 Mcg PO DIRECTED Multiple Vitamin 1 Tab 1 Tab PO DAILY Aspirin 81 Mg Chew 81 Mg CHEW DAILY Metoprolol Tartrate 25 Mg Tab 25 Mg PO DAILY Nitroglycerin SL (Nitroglycerin) 0.4 Mg Subl 0.4 Mg SL DIRECTED PRN ONE TABLET UNDER THE TONGUE NEEDED FOR CHEST PAIN, MAY REPEAT EVERY FIVE MINUTES FOR A TOTAL OF 3 DOSES OR CALL 911 IF NO RELIEF Clopidogrel (Clopidogrel Bisulfate) 75 Mg Tab 75 Mg PO DAILY Levothyroxine (Levothyroxine Sodium) 50 Mcg Tab 50 Mcg PO DAILY Physical Exam Vital Signs Vital Signs Date Time Temp Pulse Resp B/P (MAP) Pulse Ox O2 Delivery O2 Flow Rate FiO2 04/19/17 11:30 96 Nasal Cannula 2.00 04/19/17 08:00 97.6 50 20 131/71 (91) 96 04/19/17 07:00 44 04/19/17 06:00 49 04/19/17 05:00 48 04/19/17 04:00 98.4 50 18 134/66 (88) 98 04/19/17 04:00 Room Air 04/19/17 04:00 50 04/19/17 03:00 48 04/19/17 02:00 52 04/19/17 01:00 51 04/19/17 00:00 Room Air 04/19/17 00:00 98.0 49 20 144/65 (91) 97 04/19/17 00:00 49 04/18/17 21:54 55 04/18/17 21:50 137 04/18/17 21:44 145 04/18/17 21:16 97.5 59 16 132/60 (84) 99 04/18/17 18:58 52 04/18/17 18:09 97.6 51 18 129/61 (83) 100 04/18/17 17:04 04/18/17 15:54 49 17 117/69 (85) 100 Room Air 04/18/17 13:34 56 106/59 (75) 99 04/18/17 12:54 49 97 Physical Exam P 52 reg, BP 146/78, R 14 nonlabored, Sats 95% Head: Atraumatic, normal. Neck: Supple, no snoring or obstruction. Eyes: Legally blind. Lungs: Clear, no adventitious sounds. Heart: NL S1S2, bradycardia. No JVD. Abdomen: Benign, soft. Extremities: Warm, well perfused. Neuro: Aphasic. Mild right facial droop. Blind (chronic). Purposeful with right arm - scratches his nose. Both hand grasps 4/5. Minimal response legs. DTRs 3+ both patellars. Toes down bilateral. No clonus. Follows commands with hand grasp left and right. (tPA is infusing). Laboratory Laboratory Tests Test 04/18/17 13:12 04/18/17 13:38 04/19/17 09:35 04/19/17 11:30 White Blood Count 9.2 5.4 6.6 Red Blood Count 4.99 4.52 4.27 Hemoglobin 15.7 14.3 13.6 Hematocrit 47.3 42.4 40.2 Mean Corpuscular Volume 94.7 93.8 94.1 Mean Corpuscular Hemoglobin 31.5 31.5 31.9 Mean Corpuscular Hemoglobin Concent 33.3 33.6 33.9 Red Cell Distribution Width 15.2 14.6 14.9 Platelet Count 191 147 161 Mean Platelet Volume 10.5 10.1 9.9 Neutrophils (%) (Auto) 80.2 67.3 69.2 Lymphocytes (%) (Auto) 14.8 23.0 21.0 Monocytes (%) (Auto) 4.4 6.9 7.6 Eosinophils (%) (Auto) 0.3 2.4 1.8 Basophils (%) (Auto) 0.3 0.4 0.4 Neutrophils # (Auto) 7.4 3.6 4.6 Lymphocytes # (Auto) 1.4 1.2 1.4 Monocytes # (Auto) 0.4 0.4 0.5 Eosinophils # (Auto) 0.0 0.1 0.1 Basophils # (Auto) 0.0 0.0 0.0 CBC Comment DIFF FINAL DIFF FINAL DIFF FINAL Differential Comment Prothrombin Time 11.0 11.0 Prothromb Time International Ratio 1.1 1.1 Activated Partial Thromboplast Time 29.7 29.6 Blood Urea Nitrogen 29 28 Creatinine 2.56 1.92 Random Glucose 169 150 Total Protein 6.9 Albumin 3.4 Calcium Level 9.3 8.8 Alkaline Phosphatase 111 Aspartate Amino Transf (AST/SGOT) 28 Alanine Aminotransferase (ALT/SGPT) 39 Total Bilirubin 0.9 Sodium Level 140 139 Potassium Level 5.0 3.9 Chloride Level 106 106 Carbon Dioxide Level 21.0 26.2 Anion Gap 13 7 Estimat Glomerular Filtration Rate 24 33 Total Creatine Kinase 44 50 Troponin I 0.17 0.17 Thyroid Stimulating Hormone 3rd Gen 2.090 Urine Color DARK-YELLOW Urine Turbidity HAZY Urine pH 5.0 Urine Specific [place] 1.018 Urine Protein 30 Urine Glucose (UA) NEG Urine Ketones TRACE Urine Occult Blood SMALL Urine Nitrite NEG Urine Bilirubin NEG Urine Urobilinogen 2.0 Urine Leukocyte Esterase LARGE Urine RBC 18 Urine WBC Urine Squamous Epithelial Cells 2 Urine Bacteria RARE Urine Hyaline Casts 131 Urine Mucus FEW Microscopic Urinalysis Comment CATH-CULTURE IND Bedside Hemoglobin 12.9 Bedside Hematocrit 38.0 Fibrinogen 403 Bedside Sodium 141 Bedside Potassium 3.5 Bedside Chloride 105 Bedside Blood Urea Nitrogen 26 Bedside Creatinine 1.9 Bedside Glucose 108 Date/Time Source Procedure Growth Status 04/18/17 13:38 Urine Catheterized Urine Urine Culture - Preliminary S. Aureus Mrsa Resulted Result Diagram: 04/19/17 1130 04/19/17 0935 Assessment and Plan Assessment and Plan Assessment: 1. Acute CVA, tPA Rx. 2. Paroxysmal SVT. 3. Hypertension. 4. Legally blind. Plan: 1. Post tPA protocol. 2. Immediate repeat CT scan head for any neuro deterioration. 3. Pepcid. 4. Avoid chemical DVT prophylaxis today. 5. Hold Plaxix unless approved by Neurologist. 6. Follow Creatinine closley. 7. Maintain BP parameters outlined in protocol with labetalol and hydralazine. 8. MRI ordered. Overall impression: Critically ill with an acute ischemic CVA. Paroxysmal SVT may be source of thrombus, workup in progress. Protects airway well at present, watch fito. Critical Care 38 mins Waldemar Rivas MD Apr 19, 2017 13:04
[2017-04-19] MEDS ORDERED: hydrALAZINE HCL 20 MG/ML VIAL IV PUSH PRN (13:15)
--- NOTE | 2017-04-19 14:45 | EKG ---
Date Performed: 04/18/2017 Time Performed: 12:39:50 PTAGE: 89 years EKG: SINUS BRADYCARDIA PATTERN CONSISTENT WITH PULMONARY DISEASE LEFT ANTERIOR FASCICULAR BLOCK NONSPECIFIC T-WAVE ABNORMALITY ABNORMAL ECG Since PREVIOUS TRACING , no significant change noted PREVIOUS TRACIN03/27/2017 04.41.56 DOCTOR: Tavo Candelario Interpretating Date/Time 04/19/2017 14:44:55
--- NOTE | 2017-04-19 14:47 | EKG ---
Date Performed: 04/18/2017 Time Performed: 16:08:00 PTAGE: 89 years EKG: SINUS BRADYCARDIA PATTERN CONSISTENT WITH PULMONARY DISEASE LEFT ANTERIOR FASCICULAR BLOCK NONSPECIFIC T-WAVE ABNORMALITY ABNORMAL ECG Since PREVIOUS TRACING , no significant change noted PREVIOUS TRACIN03/27/2017 04.41 DOCTOR: Tavo Candelario Interpretating Date/Time 04/19/2017 14:45:38
--- NOTE | 2017-04-19 17:15 | RADRPT ---
EXAM DATE/TIME: 04/19/2017 16:21 [facility] COMPARISON: CT BRAIN W/O CONTRAST, April 19, 2017, 11:45. INDICATIONS : CVA. Right facial droop. MEDICAL HISTORY : Hypertension. Renal insufficiency, chronic. SURGICAL HISTORY : Coronary artery stent. ENCOUNTER: Initial ACUITY: 1 day PAIN SCORE: 0/10 LOCATION: cranial TECHNIQUE: Multiplanar, multisequence MRI of the brain was performed without contrast. FINDINGS: CEREBRUM: Cerebral atrophy. No evidence of midline shift, mass lesion, hemorrhage or acute infarction. No ext raaxial fluid collections are seen. The pituitary gland and suprasellar cistern are normal in config uration. WHITE MATTER: Scattered areas of high T2 signal abnormalities are seen in the white matter. POSTERIOR FOSSA: The cerebellum and brainstem are intact. The 4th ventricle is midline. The cerebellopontine angle is unremarkable. The cerebellar tonsils are normal in position. DIFFUSION IMAGING: Subtle areas of restricted diffusion left temporal lobe. EXTRACRANIAL: The visualized portions of the orbits are unremarkable. Partial opacification right maxillary sinus a nd to lesser degree right ethmoid sinus CONCLUSION: 1. Subtle areas restricted diffusion left temporal lobe likely acute infarcts. No midline shift or ma ss effect. 2. Cerebral atrophy and chronic ischemic small vessel vasculopathy 3. Right maxillary sinus disease. Adithya Marr MD on April 19, 2017 at 17:10 Board Certified Radiologist. This report was verified electronically.
[2017-04-19] MEDS: SODIUM CHLOR 0.9% 1000 ML INJ 1,000 ML IV SCH (18:15)
--- NOTE | 2017-04-19 18:58 | PD.CONS ---
HPI Service Cardiology Consult Requested By Dr. Raj Mtz Reason for Consult SVT management Primary Care Physician Charles Macdonald M.D. Review of Systems ROS Limitations: Altered Mental Status, Language Barrier Past Family Social History Allergies: Coded Allergies: penicillin G (Unverified Allergy, Severe, Anaphylaxis, 03/26/17) Past Medical History 1) hypertension 2) coronary artery disease, PCI to OM and LAD with Xience Stent August 2010 3) paroxysmal supraventricular tachycardia 4) chronic kidney disease, stage III 5) hypothyroidism 6) peripheral vascular disease 7) GERD Past Surgical History 1) eye surgery, unspecified 2) coronary stent placement Reported Medications Reported Meds & Active Scripts Active Protonix (Pantoprazole Sodium) 40 Mg Tab 40 Mg PO DAILY Reported Vitamin B-12 ER (Cyanocobalamin) 2,000 Mcg Tab 5,000 Mcg PO DIRECTED Multiple Vitamin 1 Tab 1 Tab PO DAILY Aspirin 81 Mg Chew 81 Mg CHEW DAILY Metoprolol Tartrate 25 Mg Tab 25 Mg PO BID Nitroglycerin SL (Nitroglycerin) 0.4 Mg Subl 0.4 Mg SL DIRECTED PRN ONE TABLET UNDER THE TONGUE NEEDED FOR CHEST PAIN, MAY REPEAT EVERY FIVE MINUTES FOR A TOTAL OF 3 DOSES OR CALL 911 IF NO RELIEF Clopidogrel (Clopidogrel Bisulfate) 75 Mg Tab 75 Mg PO DAILY Levothyroxine (Levothyroxine Sodium) 50 Mcg Tab 50 Mcg PO DAILY Active Ordered Medications Current Medications Medications (Trade) Dose Ordered Sig/Beto Route Start Time Stop Time Status Last Admin (NS Flush) 2 ml UNSCH PRN IV FLUSH 04/18/17 15:00 (NS Flush) 2 ml BID IV FLUSH 04/18/17 21:00 (Tylenol) 650 mg Q4H PRN PO 04/18/17 15:00 (Zofran Inj) 4 mg Q6H PRN IVP 04/18/17 15:00 (Narcan Inj) 0.4 mg UNSCH PRN IV PUSH 04/18/17 15:00 (Milk Of Magnesia Liq) 30 ml Q12H PRN PO 04/18/17 15:00 (Aspirin Chew) 81 mg DAILY CHEW 04/19/17 09:00 04/19/17 09:17 (Plavix) 75 mg DAILY PO 04/19/17 09:00 Future Hold 04/19/17 09:17 (Synthroid) 50 mcg DAILY@0600 PO 04/19/17 06:00 04/19/17 06:00 (Nitrostat Sl) 0.4 mg Q1H PRN SL 04/18/17 15:15 (Protonix) 40 mg DAILY PO 04/19/17 09:00 04/19/17 09:17 (Lopressor) 25 mg BID PO 04/18/17 21:00 04/18/17 21:47 (Apresoline Inj) 10 mg Q30M PRN IV PUSH 04/19/17 13:15 Sodium Chloride 1,000 ml @ 70 mls/hr [id number] IV 04/19/17 16:15 04/19/17 18:15 Family History noncontributory Social History Lives with his significant other 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 Physical Exam Vital Signs Vital Signs Date Time Temp Pulse Resp B/P (MAP) Pulse Ox O2 Delivery O2 Flow Rate FiO2 04/19/17 11:30 96 Nasal Cannula 2.00 04/19/17 11:00 72 04/19/17 10:00 58 04/19/17 09:00 52 04/19/17 08:00 97.6 50 20 131/71 (91) 96 04/19/17 08:00 50 04/19/17 08:00 96 Room Air 04/19/17 07:00 44 04/19/17 06:00 49 04/19/17 05:00 48 04/19/17 04:00 98.4 50 18 134/66 (88) 98 04/19/17 04:00 Room Air 04/19/17 04:00 50 04/19/17 03:00 48 04/19/17 02:00 52 04/19/17 01:00 51 04/19/17 00:00 Room Air 04/19/17 00:00 98.0 49 20 144/65 (91) 97 04/19/17 00:00 49 04/18/17 21:54 55 04/18/17 21:50 137 04/18/17 21:44 145 04/18/17 21:16 97.5 59 16 132/60 (84) 99 04/18/17 18:58 52 Physical Exam General: Resting comfortable, not response to call. Head: Atraumatic, normal. Neck: Supple, no snoring or obstruction. Eyes: Legally blind. Lungs: Clear, no adventitious sounds. Heart: NL S1S2, bradycardia. No JVD. Abdomen: Benign, soft. Extremities: Warm, well perfused. Neuro: Aphasic. Mild right facial droop. Laboratory Laboratory Tests Test 04/19/17 09:35 04/19/17 11:30 04/19/17 12:55 White Blood Count 5.4 6.6 Red Blood Count 4.52 4.27 Hemoglobin 14.3 13.6 Hematocrit 42.4 40.2 Mean Corpuscular Volume 93.8 94.1 Mean Corpuscular Hemoglobin 31.5 31.9 Mean Corpuscular Hemoglobin Concent 33.6 33.9 Red Cell Distribution Width 14.6 14.9 Platelet Count 147 161 Mean Platelet Volume 10.1 9.9 Neutrophils (%) (Auto) 67.3 69.2 Lymphocytes (%) (Auto) 23.0 21.0 Monocytes (%) (Auto) 6.9 7.6 Eosinophils (%) (Auto) 2.4 1.8 Basophils (%) (Auto) 0.4 0.4 Neutrophils # (Auto) 3.6 4.6 Lymphocytes # (Auto) 1.2 1.4 Monocytes # (Auto) 0.4 0.5 Eosinophils # (Auto) 0.1 0.1 Basophils # (Auto) 0.0 0.0 CBC Comment DIFF FINAL DIFF FINAL Differential Comment Blood Urea Nitrogen 28 Creatinine 1.92 Random Glucose 150 Calcium Level 8.8 Sodium Level 139 Potassium Level 3.9 Chloride Level 106 Carbon Dioxide Level 26.2 Anion Gap 7 Estimat Glomerular Filtration Rate 33 Bedside Hemoglobin 12.9 Bedside Hematocrit 38.0 Prothrombin Time 11.0 Prothromb Time International Ratio 1.1 Activated Partial Thromboplast Time 29.6 Fibrinogen 403 Bedside Sodium 141 Bedside Potassium 3.5 Bedside Chloride 105 Bedside Blood Urea Nitrogen 26 Bedside Creatinine 1.9 Bedside Glucose 108 Total Creatine Kinase 50 Troponin I 0.17 Nasal Screen MRSA (PCR) MRSA DETECTED Date/Time Source Procedure Growth Status 04/18/17 13:38 Urine Catheterized Urine Urine Culture - Preliminary S. Aureus Mrsa Resulted Result Diagram: 04/19/17 1130 04/19/17 0935 Assessment and Plan Problem List: (1) Acute ischemic stroke ICD Codes: I63.9 - Cerebral infarction, unspecified (2) Altered mental status ICD Codes: R41.82 - Altered mental status, unspecified Status: Acute (3) SVT (supraventricular tachycardia) ICD Codes: I47.1 - Supraventricular tachycardia Status: Acute (4) CAD (coronary artery disease) ICD Codes: I25.10 - Atherosclerotic heart disease of [place] coronary artery without angina pectoris Status: Acute Assessment and Plan 89 yo man, admitted for SVT initially, then noted to acute stroke, received tPA 1. Acute stroke, received tPA. Neuro is monitoring 2. SVT, per report. NO ECG available for review. If Afib RVR evidence, he will need anticoagulation if he recovers from current illness. Now in Sinus bradycardia Will do Echo 3. CAD, stable 4. Baseline dementia, legally blind. I am seeing patient this weekend requested by Dr Collins Lobato, FHCP. Wing Twyla Gan MD Apr 19, 2017 18:58
[2017-04-20] VITALS (18 sets, daily range): BP systolic 125–169; BP diastolic 58–103; PULSE 42–185; RESP 17–52; TEMP 97.5–98.6; O2SAT 98–100
[2017-04-20] MEDS: LEVOTHYROXINE SODIUM 50 MCG TAB PO SCH (06:34)
[2017-04-20] MEDS: SODIUM CHLOR 0.9% 1000 ML INJ 1,000 ML IV SCH ×2 (06:34→20:51)
--- NOTE | 2017-04-20 07:43 | HHI.CCPN ---
Subjective Remarks/Hospital Course 89 y/o man developed acute expressive aphasia and right facial droop this morning while a patient in [facility]. He was normal immediately prior, aside from possibly early dementia and sundowning. CT Head negative and after evaluation by the Neurology Service he received tPA for a diagnosis of acute ischemic stroke. The patient appears to be right handed. I met him upon his arrival to the [facility]. Past history is significant for paroxysmal SVT (for which he was admitted this time), hypertension, CAD with stent, hypothyroidism. Normotensive on arrival. Head CT normal for age. CTA head without acute pathology. Extracranial cervical arterial circulation without significant stenosis. 04/20: MRI with small acute left temporal lobe infarcts. Clinically he looks great; conversant, alert. Objective Vital Signs Date Time Temp Pulse Resp B/P (MAP) Pulse Ox O2 Delivery O2 Flow Rate FiO2 04/20/17 06:00 54 04/20/17 04:00 98.5 20 156/66 (96) 100 04/19/17 20:26 Nasal Cannula 2.00 Intake and Output 04/20/17 04/20/17 04/21/17 08:00 16:00 00:00 Intake Total 1050 ml Output Total 600 ml Balance 450 ml Result Diagram: 04/19/17 1130 04/19/17 0935 Objective Remarks Head: Atraumatic, normal. Neck: Supple, no snoring or obstruction. Eyes: Legally blind. Lungs: Clear, no adventitious sounds. Heart: NL S1S2, bradycardia. No JVD. Abdomen: Benign, soft. BS active. Extremities: Warm, well perfused. Neuro: Conversant. Blind (chronic). Purposeful with right arm - scratches his nose. Both hand grasps 5/5. Minimal response legs. DTRs 3+ both patellars. Toes down bilateral. No clonus. Follows commands with hand grasp left and right. A/P Assessment and Plan Assessment: 1. Acute CVA, tPA Rx. 2. Paroxysmal SVT. 3. Hypertension. 4. Legally blind. Plan: 1. Post tPA protocol. 2. Immediate repeat CT scan head for any neuro deterioration. 3. Pepcid. 4. Avoid chemical DVT prophylaxis today. 5. Hold Plaxix unless approved by Neurologist. 6. Follow Creatinine closely. 7. Maintain BP parameters outlined in protocol with labetalol and hydralazine. 8. MRI ordered -> done. Overall impression: Much improved s/p tPA. Paroxysmal SVT may be source of thrombus, workup in progress. Transfer at 24 hours. Waldemar Rivas MD Apr 20, 2017 07:43
--- NOTE | 2017-04-20 08:45 | HHI.PR ---
Objective Vital Signs Date Time Temp Pulse Resp B/P (MAP) Pulse Ox O2 Delivery O2 Flow Rate FiO2 04/20/17 08:01 100 21 04/20/17 06:00 54 04/20/17 04:00 54 04/20/17 04:00 98.5 54 20 156/66 (96) 100 04/20/17 02:00 52 04/20/17 00:00 50 04/20/17 00:00 98.6 50 25 142/63 (89) 100 04/19/17 20:26 100 Nasal Cannula 2.00 04/19/17 20:00 98.5 48 16 126/78 (94) 100 04/19/17 20:00 100 Nasal Cannula 2.00 04/19/17 18:00 42 04/19/17 16:00 98.6 52 22 137/63 (87) 100 04/19/17 16:00 52 04/19/17 14:00 46 04/19/17 12:30 56 04/19/17 12:30 97.8 56 17 135/73 (93) 99 04/19/17 11:30 96 Nasal Cannula 2.00 04/19/17 11:00 72 04/19/17 10:00 58 04/19/17 09:00 52 I/O 04/19/17 04/19/17 04/19/17 04/20/17 04/20/17 04/20/17 07:00 15:00 23:00 07:00 15:00 23:00 Intake Total 1080 ml 60 ml 1050 ml Output Total 600 ml 825 ml 600 ml Balance 480 ml -765 ml 450 ml Intake Oral 240 ml 60 ml 50 ml IV Total 840 ml 1000 ml Output Urine Total 600 ml 825 ml 600 ml # Voids 1 # Bowel Movements 0 0 Result Diagram: 04/19/17 1130 04/19/17 0935 Objective Remarks awake alert legaly blind can repeat and show left thumb and 5/5 t/o no longer aphasic no afib hr to 39 Assessment and Plan Assessment and Plan imp two small left mca cva no ich on mri if ct neg for blood i would rec anticoagulation we could do iv heparin and coumadin and then change to eliquis in a few weeks i am worried about starting eliquis so soon after tpa 2 pm today is 24 hours after tpa Mika Poe MD Apr 20, 2017 08:45
[2017-04-20] MEDS: METOPROLOL TARTRATE 25 MG TAB PO SCH ×2 (09:00→20:39)
--- NOTE | 2017-04-20 10:00 | MG ---
cc: MAUREEN ADRIAN Lab No: [id number] Date: 04/20/2017 Age: Sex: M Race: Status post stroke alert, right facial droop, aphasia. Diffuse 7 Hz 60 microvolt rhythm is noted. I do not see any definite left temporal lobe abnormalities. No hemisphere asymmetry is noted. A lot of muscle artifact is seen bitemporal. Photic stimulation and hyperventilation were not performed. This is a much better look here, it would be here in T3. He did not have a seizure, it was a stroke. IMPRESSION Some mild diffuse theta slowing but no focal abnormalities noted, specifically no left temporal lobe abnormality was seen. MD FELISHA Veras/MERCEDES /9:12 AM /9:52 AM
[2017-04-20] MEDS: PANTOPRAZOLE SOD 40 MG DELAYED RELEASE TAB PO SCH (10:24)
[2017-04-20] MEDS: SODIUM CHLORIDE 0.9% FLUSH 10 ML FLUSH IV FLUSH SCH ×2 (10:24→20:39)
[2017-04-20] MEDS ORDERED: METOPROLOL TARTRATE 5 MG/5 ML VIAL IV PUSH ONE (11:00)
--- NOTE | 2017-04-20 12:24 | EKG ---
Date Performed: 04/19/2017 Time Performed: 08:07:28 PTAGE: 89 years EKG: Sinus bradycardia. Prolonged QT interval Left axis deviation Anterior T wave changes are no nspecific Borderline ECG Since PREVIOUS TRACING , no significant change noted PREVIOUS TRACIN04/18/2017 16.08 DOCTOR: Tavo Candelario Interpretating Date/Time 04/20/2017 12:23:25
--- NOTE | 2017-04-20 12:24 | EKG ---
Date Performed: 04/19/2017 Time Performed: 11:26:19 PTAGE: 89 years EKG: SINUS BRADYCARDIA WITH SHORT MA INTERVAL LEFT ANTERIOR FASCICULAR BLOCK NONSPECIFIC T-WAVE ABNORMALITY ABNORMAL ECG Since PREVIOUS TRACING , no significant change noted PREVIOUS TRACIN04/19/2017 08.07 DOCTOR: Tavo Candelario Interpretating Date/Time 04/20/2017 12:23:41
--- NOTE | 2017-04-20 14:51 | RADRPT ---
EXAM DATE/TIME: 04/20/2017 13:41 [facility] COMPARISON: MRI BRAIN W/O CONTRAST, April 19, 2017, 16:21. INDICATIONS : Follow up stroke alert. RADIATION DOSE: 49.82 CTDIvol (mGy) MEDICAL HISTORY : Hypertension. SURGICAL HISTORY : None. ENCOUNTER: Initial ACUITY: 1 day PAIN SCALE: 0/10 LOCATION: Bilateral head TECHNIQUE: Multiple contiguous axial images were obtained of the head. Using automated exposure control and adj ustment of the mA and/or kV according to patient size, radiation dose was kept as low as reasonably a chievable to obtain optimal diagnostic quality images. DICOM format image data is available electro nically for review and comparison. FINDINGS: There is no evidence for intracranial hemorrhage, mass effect, mass lesions, or edema. The visualize d bony structures appear intact. Slight degree of brain atrophy is seen. Slight periventricular whit e matter changes are seen nonspecific mostly consistent with chronic small vessel ischemic changes. There are no signs of acute infarction for technique. There is opacification of right maxillary sinus chronic in nature. CONCLUSION: Slight atrophic and small vessel ischemic changes without any evidence for acute hemorrhage or mass effect and the area of subtle acute infarction on the patient's MRI is not visual ized due to technique. Jerzy Rodarte MD on April 20, 2017 at 14:47 Board Certified Radiologist. This report was verified electronically.
--- NOTE | 2017-04-20 19:50 | PD.CARD.PN ---
Subjective Subjective Remarks Normal speech. Objective Medications Current Medications Medications (Trade) Dose Ordered Sig/Beto Route Start Time Stop Time Status Last Admin (NS Flush) 2 ml UNSCH PRN IV FLUSH 04/18/17 15:00 (NS Flush) 2 ml BID IV FLUSH 04/18/17 21:00 04/20/17 10:24 (Tylenol) 650 mg Q4H PRN PO 04/18/17 15:00 (Zofran Inj) 4 mg Q6H PRN IVP 04/18/17 15:00 (Narcan Inj) 0.4 mg UNSCH PRN IV PUSH 04/18/17 15:00 (Milk Of Magnesia Liq) 30 ml Q12H PRN PO 04/18/17 15:00 (Synthroid) 50 mcg DAILY@0600 PO 04/19/17 06:00 04/20/17 06:34 (Nitrostat Sl) 0.4 mg Q1H PRN SL 04/18/17 15:15 (Protonix) 40 mg DAILY PO 04/19/17 09:00 04/20/17 10:24 (Lopressor) 25 mg BID PO 04/18/17 21:00 04/18/17 21:47 (Apresoline Inj) 10 mg Q30M PRN IV PUSH 04/19/17 13:15 Sodium Chloride 1,000 ml @ 70 mls/hr [id number] IV 04/19/17 16:15 04/20/17 06:34 Vital Signs / I&O Vital Signs Date Time Temp Pulse Resp B/P (MAP) Pulse Ox O2 Delivery O2 Flow Rate FiO2 04/20/17 18:00 46 04/20/17 16:00 44 04/20/17 16:00 98.2 44 21 145/67 (93) 99 04/20/17 14:00 42 04/20/17 12:00 97.5 46 17 125/58 (80) 99 04/20/17 12:00 46 04/20/17 11:00 53 04/20/17 10:40 185 04/20/17 10:00 54 04/20/17 09:00 54 04/20/17 08:01 100 21 04/20/17 08:00 98.0 46 17 144/103 (117) 100 04/20/17 08:00 46 04/20/17 07:00 99 Room Air 04/20/17 07:00 42 04/20/17 06:00 54 04/20/17 04:00 54 04/20/17 04:00 98.5 54 20 156/66 (96) 100 04/20/17 02:00 52 04/20/17 00:00 50 04/20/17 00:00 98.6 50 25 142/63 (89) 100 04/19/17 20:26 100 Nasal Cannula 2.00 04/19/17 20:00 98.5 48 16 126/78 (94) 100 04/19/17 20:00 100 Nasal Cannula 2.00 I/O 04/19/17 04/19/17 04/19/17 04/20/17 04/20/17 04/20/17 07:00 15:00 23:00 07:00 15:00 23:00 Intake Total 1080 ml 60 ml 1050 ml 1576 ml Output Total 600 ml 825 ml 600 ml 775 ml Balance 480 ml -765 ml 450 ml 801 ml Intake Oral 240 ml 60 ml 50 ml 740 ml IV Total 840 ml 1000 ml 836 ml Output Urine Total 600 ml 825 ml 600 ml 775 ml # Voids 1 # Bowel Movements 0 0 0 Physical Exam General: Resting comfortable, not response to call. Head: Atraumatic, normal. Neck: Supple, no snoring or obstruction. Eyes: Legally blind. Lungs: Clear, no adventitious sounds. Heart: NL S1S2, bradycardia. No JVD. Abdomen: Benign, soft. Extremities: Warm, well perfused. Neuro: Aphasic. Mild right facial droop. Imaging Last [address] 04/20/17 1300 Signed Impressions: Service Date/Time: Thursday, April 20, 2017 13:41 - CONCLUSION: Slight atrophic and small vessel ischemic changes without any evidence for acute hemorrhage or mass effect and the area of subtle acute infarction on the patient's MRI is not visualized due to technique. Jerzy Rodarte MD Assessment and Plan Problem List: (1) Acute ischemic stroke ICD Codes: I63.9 - Cerebral infarction, unspecified (2) Altered mental status ICD Codes: R41.82 - Altered mental status, unspecified Status: Acute (3) SVT (supraventricular tachycardia) ICD Codes: I47.1 - Supraventricular tachycardia Status: Acute (4) CAD (coronary artery disease) ICD Codes: I25.10 - Atherosclerotic heart disease of [place] coronary artery without angina pectoris Status: Acute Assessment and Plan 89 yo man, admitted for SVT initially, then noted to acute stroke, received tPA 1. Acute stroke, received tPA. Neuro is monitoring 2. SVT Paroxysmal, recurrent tachyarrhythmia occurred this morning, and yesterday morning up to 180-190 bpm with dyspnea, lightheadedness, etc. May benefit for EPS, possible ablation. Will do Echo Still pending. 3. CAD, stable 4. Baseline dementia, legally blind. I am seeing patient this weekend requested by Dr Collins Lobato, FHCP. Wing Twyla Gan MD Apr 20, 2017 19:50
[2017-04-21] VITALS (28 sets, daily range): BP systolic 120–159; BP diastolic 58–92; PULSE 44–70; RESP 16–18; TEMP 97.3–98.4; O2SAT 95–100
[2017-04-21] MEDS: LEVOTHYROXINE SODIUM 50 MCG TAB PO SCH (05:39)
[2017-04-21 07:38] LABS: BICARBONATE 21.6 MEQ/L (21.0-32.0); CALCIUM 7.9 MG/DL (8.5-10.1); CREATININE 1.55 MG/DL (0.60-1.30)
--- NOTE | 2017-04-21 08:04 | PD.CARD.PN ---
Subjective Subjective Remarks resting comfortably. no events overnight. denies chest pain or sob. alert and oriented. (Becky Lau) Objective Medications Current Medications Medications (Trade) Dose Ordered Sig/Beto Route Start Time Stop Time Status Last Admin (NS Flush) 2 ml UNSCH PRN IV FLUSH 04/18/17 15:00 (NS Flush) 2 ml BID IV FLUSH 04/18/17 21:00 04/20/17 20:39 (Tylenol) 650 mg Q4H PRN PO 04/18/17 15:00 (Zofran Inj) 4 mg Q6H PRN IVP 04/18/17 15:00 (Narcan Inj) 0.4 mg UNSCH PRN IV PUSH 04/18/17 15:00 (Milk Of Magnesia Liq) 30 ml Q12H PRN PO 04/18/17 15:00 (Synthroid) 50 mcg DAILY@0600 PO 04/19/17 06:00 04/21/17 05:39 (Nitrostat Sl) 0.4 mg Q1H PRN SL 04/18/17 15:15 (Protonix) 40 mg DAILY PO 04/19/17 09:00 04/20/17 10:24 (Lopressor) 25 mg BID PO 04/18/17 21:00 04/18/17 21:47 (Apresoline Inj) 10 mg Q30M PRN IV PUSH 04/19/17 13:15 Sodium Chloride 1,000 ml @ 70 mls/hr [id number] IV 04/19/17 16:15 04/20/17 20:51 Vital Signs / I&O Vital Signs Date Time Temp Pulse Resp B/P (MAP) Pulse Ox O2 Delivery O2 Flow Rate FiO2 04/21/17 06:06 54 04/21/17 05:52 58 04/21/17 04:00 46 04/21/17 03:55 98.3 70 152/92 (112) 95 04/21/17 03:00 54 04/21/17 02:00 62 04/21/17 01:00 48 04/21/17 00:56 97.3 60 159/77 (104) 100 04/21/17 00:00 50 04/20/17 23:00 53 04/20/17 20:16 99 21 04/20/17 20:00 52 04/20/17 20:00 98.6 52 52 169/78 (108) 98 04/20/17 19:00 99 Room Air 04/20/17 18:00 46 04/20/17 16:00 44 04/20/17 16:00 98.2 44 21 145/67 (93) 99 04/20/17 14:00 42 04/20/17 12:00 97.5 46 17 125/58 (80) 99 04/20/17 12:00 46 04/20/17 11:00 53 04/20/17 10:40 185 04/20/17 10:00 54 04/20/17 09:00 54 04/20/17 08:01 100 21 04/20/17 08:00 98.0 46 17 144/103 (117) 100 04/20/17 08:00 46 I/O 04/20/17 04/20/17 04/20/17 04/21/17 04/21/17 04/21/17 07:00 15:00 23:00 07:00 15:00 23:00 Intake Total 1050 ml 1576 ml 240 ml Output Total 600 ml 775 ml 425 ml Balance 450 ml 801 ml -185 ml Intake Oral 50 ml 740 ml 240 ml IV Total 1000 ml 836 ml Output Urine Total 600 ml 775 ml 425 ml # Bowel Movements 0 Physical Exam GENERAL: SKIN: Warm and dry. HEAD: Atraumatic. Normocephalic. EYES: Pupils equal and round. ENT: No nasal bleeding or discharge. NECK: Trachea midline. No JVD. CARDIOVASCULAR: Regular rate and rhythm. no murmurs RESPIRATORY: No accessory muscle use. Clear to auscultation. Breath sounds equal bilaterally. GASTROINTESTINAL: Abdomen soft, non-tender, nondistended. MUSCULOSKELETAL: Extremities without clubbing, cyanosis, or edema. NEUROLOGICAL: Awake and alert. No obvious cranial nerve deficits. Normal speech. PSYCHIATRIC: Appropriate mood and affect; insight and judgment normal. Laboratory Laboratory Tests Test 04/21/17 05:50 Anion Gap 8 MEQ/L Estimat Glomerular Filtration Rate 42 ML/MIN Imaging Last [address] 04/20/17 1300 Signed Impressions: Service Date/Time: Thursday, April 20, 2017 13:41 - CONCLUSION: Slight atrophic and small vessel ischemic changes without any evidence for acute hemorrhage or mass effect and the area of subtle acute infarction on the patient's MRI is not visualized due to technique. Jrezy Rodarte MD (Becky Lau) Assessment and Plan Problem List: (1) Acute ischemic stroke ICD Codes: I63.9 - Cerebral infarction, unspecified Status: Acute (2) Altered mental status ICD Codes: R41.82 - Altered mental status, unspecified Status: Acute (3) SVT (supraventricular tachycardia) ICD Codes: I47.1 - Supraventricular tachycardia Status: Acute (4) CAD (coronary artery disease) ICD Codes: I25.10 - Atherosclerotic heart disease of [place] coronary artery without angina pectoris Status: Chronic Assessment and Plan 89 yo WM with history of SVT,CAD, s/p PCI OM and LAD in 2010, HTN, CKD, PVD, and blindness who presents with acute CVA. clinically improving s/p tpa. paroxysmal SVT- no events seen on tele overnight. comfortable overnight. slightly bradycardic and normotensive. consider EP consult for ablation September 2016 echo: EF 60-65%, mild-moderate AI, mild updated echo pending (Becky Lau) Assessment and Plan possible atrial fibrillation although no documentation + CVA. probable cardioembolic event. recommend anticoagulation, likely lifelong. no need for event monitor, loop, DORINDA since he is comitted to anticoagulation regardless. known mild-mod aortic valve dz No ablation. not symptomatic and no documentation of arrhythmia and patient not agreeable PT/OT bradycardia - hold BB SM (Collins Lobato MD) Becky Lau Apr 21, 2017 08:04 Collins Lobato MD Apr 21, 2017 13:48
--- NOTE | 2017-04-21 08:29 | HHI.PR ---
Objective Vital Signs Date Time Temp Pulse Resp B/P (MAP) Pulse Ox O2 Delivery O2 Flow Rate FiO2 04/21/17 06:06 54 04/21/17 05:52 58 04/21/17 04:00 46 04/21/17 03:55 98.3 70 152/92 (112) 95 04/21/17 03:00 54 04/21/17 02:00 62 04/21/17 01:00 48 04/21/17 00:56 97.3 60 159/77 (104) 100 04/21/17 00:00 50 04/20/17 23:00 53 04/20/17 20:16 99 21 04/20/17 20:00 52 04/20/17 20:00 98.6 52 52 169/78 (108) 98 04/20/17 19:00 99 Room Air 04/20/17 18:00 46 04/20/17 16:00 44 04/20/17 16:00 98.2 44 21 145/67 (93) 99 04/20/17 14:00 42 04/20/17 12:00 97.5 46 17 125/58 (80) 99 04/20/17 12:00 46 04/20/17 11:00 53 04/20/17 10:40 185 04/20/17 10:00 54 04/20/17 09:00 54 I/O 04/20/17 04/20/17 04/20/17 04/21/17 04/21/17 04/21/17 07:00 15:00 23:00 07:00 15:00 23:00 Intake Total 1050 ml 1576 ml 240 ml Output Total 600 ml 775 ml 425 ml Balance 450 ml 801 ml -185 ml Intake Oral 50 ml 740 ml 240 ml IV Total 1000 ml 836 ml Output Urine Total 600 ml 775 ml 425 ml # Bowel Movements 0 Result Diagram: 04/19/17 1130 04/19/17 0935 Objective Remarks awake alert legaly blind can repeat and show left thumb and 5/5 t/o no longer aphasic no afib hr to 39 movesa ll well Assessment and Plan Assessment and Plan imp two small left mca cva no ich on mri ct neg for blood we will do iv heparin and coumadin and then change to eliquis in a few weeks i am worried about starting eliquis so soon after tpa start anticoag have pharmacy follow inr Mika Poe MD Apr 21, 2017 08:29
[2017-04-21] MEDS ORDERED: HEPARIN SODIUM - SQ 10,000 UNITS/ML VIAL SQ SCH (09:00)
[2017-04-21] MEDS: PANTOPRAZOLE SOD 40 MG DELAYED RELEASE TAB PO SCH (09:12)
[2017-04-21] MEDS: METOPROLOL TARTRATE 25 MG TAB PO SCH (09:12)
[2017-04-21] MEDS: SODIUM CHLORIDE 0.9% FLUSH 10 ML FLUSH IV FLUSH SCH ×2 (09:13→20:34)
--- NOTE | 2017-04-21 10:03 | HHI.PR ---
Subjective Remarks eager to get oob. Objective Vitals heart reg lung cta abd s/nt ext no edema Vital Signs Date Time Temp Pulse Resp B/P (MAP) Pulse Ox O2 Delivery O2 Flow Rate FiO2 04/21/17 06:06 54 04/21/17 05:52 58 04/21/17 04:00 46 04/21/17 03:55 98.3 70 152/92 (112) 95 04/21/17 03:00 54 04/21/17 02:00 62 04/21/17 01:00 48 04/21/17 00:56 97.3 60 159/77 (104) 100 04/21/17 00:00 50 04/20/17 23:00 53 04/20/17 20:16 99 21 04/20/17 20:00 52 04/20/17 20:00 98.6 52 52 169/78 (108) 98 04/20/17 19:00 99 Room Air 04/20/17 18:00 46 04/20/17 16:00 44 04/20/17 16:00 98.2 44 21 145/67 (93) 99 04/20/17 14:00 42 04/20/17 12:00 97.5 46 17 125/58 (80) 99 04/20/17 12:00 46 04/20/17 11:00 53 04/20/17 10:40 185 Result Diagram: 04/19/17 1130 04/19/17 0935 Imaging Last Impressions Head CT 04/18/17 1305 Signed Impressions: Service Date/Time: Tuesday, April 18, 2017 13:57 - CONCLUSION: Normal examination for a patient of this age. Zion Molina MD Chest X-Ray 04/18/17 1305 Signed Impressions: Service Date/Time: Tuesday, April 18, 2017 13:16 - CONCLUSION: Normal examination for a patient of this age. No significant change has occurred. Zion Moilna MD A/P Problem List: (1) Acute ischemic stroke ICD Codes: I63.9 - Cerebral infarction, unspecified Status: Acute Plan: 1. left cerebral/temporal ischemic cva. s/p tpa 2. paroxysmal svt 3. dementia 4. htn 5. ckd 3 6. r/o uti neurology following. heparin/coumadin initiated PT eval/oob cardiology following and considering eps recheck u/a f/u pending labs (2) SVT (supraventricular tachycardia) ICD Codes: I47.1 - Supraventricular tachycardia Status: Acute Plan: Patient was seen earlier by his primary care provider Dr. Charles Macdonald for low blood pressure and rapid pulse. Appears that patient had outpatient EKG sinus rhythm of SVT with rate of 167. Actual EKG not currently available. - EKG in emergency department reviewed and reveals SB rate 51 bpm - continuous telemetry - Consult cardiology - continue metoprolol 25 mg PO BID withhold parameters (3) CAD (coronary artery disease) ICD Codes: I25.10 - Atherosclerotic heart disease of [place] coronary artery without angina pectoris Status: Chronic Plan: Continue patient's home aspirin and Plavix (4) Hypothyroidism ICD Codes: E03.9 - Hypothyroidism, unspecified Status: Chronic Plan: Continue patient's home levothyroxine 50 mcg daily (5) GERD (gastroesophageal reflux disease) ICD Codes: K21.9 - Gastro-esophageal reflux disease without esophagitis Status: Chronic Plan: Continue patient's home Protonix (6) CKD (chronic kidney disease) stage 3, GFR 30-59 ml/min ICD Codes: N18.3 - Chronic kidney disease, stage 3 (moderate) Status: Chronic (7) HTN (hypertension) ICD Codes: I10 - Essential (primary) hypertension Status: Chronic Ravi Gonzalez MD Apr 21, 2017 10:03
[2017-04-21] MEDS: SODIUM CHLOR 0.9% 1000 ML INJ 1,000 ML IV SCH (11:11)
[2017-04-21] MEDS: HEPARIN-D5W 25,000 U/250 ML 250 ML IV PRN (11:35)
[2017-04-21 12:57] LABS: HEMATOCRIT 38.1 % (39.0-51.0); MEAN CELL VOLUME 93.9 FL (80.0-100.0); MEAN CORPUSCULAR HEMOGLOBIN 32.1 PG (27.0-34.0); MEAN CORPUSCULAR HGB CONC 34.2 % (32.0-36.0); MEAN PLATELET VOLUME 10.3 FL (7.0-11.0); PLATELET COUNT 129 TH/MM3 (150-450); RED BLOOD COUNT 4.06 MIL/MM3 (4.50-5.90); RED CELL DISTRIBUTION WIDTH 14.7 % (11.6-17.2); WHITE BLOOD COUNT 5.8 TH/MM3 (4.0-11.0)
[2017-04-21 12:58] LABS: INTERNATIONAL NORMALIZED RATIO 1.1 RATIO; PROTHROMBIN TIME - PATIENT 11.2 SEC (9.8-11.6)
[2017-04-21] MEDS: WARFARIN SOD 5 MG TAB PO SCH (16:34)
[2017-04-21 19:55] LABS: BACTERIA, URINE RARE /hpf; BILIRUBIN, URINE NEG (NEG); BLOOD, URINE TRACE (NEG); GLUCOSE,URINE NEG (NEG); HYALINE CAST, URINE 1 /lpf (RARE); KETONE, URINE NEG (NEG); MUCUS URINE FEW /lpf (OCC); NITRITE,URINE NEG (NEG); PH, URINE 5.5 (5.0-8.5); URINE COLOR YELLOW (YELLW/STRAW); URINE LEUKOCYTE ESTERASE SMALL (NEG)
--- NOTE | 2017-04-21 20:05 | EKG ---
Date Performed: 04/20/2017 Time Performed: 10:39:46 PTAGE: 89 years EKG: Supraventricular tachycardia, cannot exclude atrial flutter with 1:1 conduction Left axis d eviation Poor R wave progression - probable normal variant Septal and lateral ST-T changes suggest my ocardial injury/ischemia Compared to previous tracing, the patient is now in a rapid Supraventricular tachycardia Abnormal ECG PREVIOUS TRACING : 04/19/2017 11.26 DOCTOR: Shavonne Zurita Interpretating Date/Time 04/21/2017 20:05:13
[2017-04-22] VITALS (27 sets, daily range): BP systolic 91–154; BP diastolic 45–82; PULSE 42–75; RESP 16; TEMP 97.5–99.4; O2SAT 95–99
[2017-04-22] MEDS: SODIUM CHLOR 0.9% 1000 ML INJ 1,000 ML IV SCH ×2 (03:35→15:07)
[2017-04-22] MEDS: LEVOTHYROXINE SODIUM 50 MCG TAB PO SCH (05:10)
--- NOTE | 2017-04-22 07:57 | PD.CARD.PN ---
Subjective Subjective Remarks HR mid 40s while asleep, increased to mid 50s when awoken. Patient states his heart rate has always been low. Patient denies any chest pain, shortness breath , palpitations, lightheadedness, dizziness. (Maksim Gomez) Objective Medications Current Medications Medications (Trade) Dose Ordered Sig/Beto Route Start Time Stop Time Status Last Admin (NS Flush) 2 ml UNSCH PRN IV FLUSH 04/18/17 15:00 (NS Flush) 2 ml BID IV FLUSH 04/18/17 21:00 04/21/17 09:13 (Tylenol) 650 mg Q4H PRN PO 04/18/17 15:00 (Zofran Inj) 4 mg Q6H PRN IVP 04/18/17 15:00 (Narcan Inj) 0.4 mg UNSCH PRN IV PUSH 04/18/17 15:00 (Milk Of Magnesia Liq) 30 ml Q12H PRN PO 04/18/17 15:00 (Synthroid) 50 mcg DAILY@0600 PO 04/19/17 06:00 04/22/17 05:10 (Nitrostat Sl) 0.4 mg Q1H PRN SL 04/18/17 15:15 (Protonix) 40 mg DAILY PO 04/19/17 09:00 04/21/17 09:12 (Apresoline Inj) 10 mg Q30M PRN IV PUSH 04/19/17 13:15 Sodium Chloride 1,000 ml @ 70 mls/hr [id number] IV 04/19/17 16:15 04/22/17 03:35 (Coumadin) 5 mg DAILY@1600 PO 04/21/17 16:00 04/21/17 16:34 Pharmacy Profile Note 0 ml @ 0 mls/hr UNSCH OTHER 04/21/17 08:30 Heparin Sodium/ Dextrose 250 ml @ 8.94 mls/hr TITRATE PRN IV 04/21/17 09:00 04/21/17 11:35 Vital Signs / I&O Vital Signs Date Time Temp Pulse Resp B/P (MAP) Pulse Ox O2 Delivery O2 Flow Rate FiO2 04/22/17 07:50 95 21 04/22/17 07:09 42 04/22/17 06:00 54 04/22/17 05:39 96 Room Air 04/22/17 05:06 99.4 75 16 143/80 (101) 96 04/22/17 05:00 66 04/22/17 04:02 60 04/22/17 03:00 66 04/22/17 02:22 50 04/22/17 01:00 46 04/22/17 00:15 97.5 48 16 154/75 (101) 98 04/22/17 00:02 46 04/21/17 23:00 46 04/21/17 22:00 46 04/21/17 21:00 46 04/21/17 20:33 98 Room Air 04/21/17 20:31 97.5 46 16 133/58 (83) 98 04/21/17 20:02 45 04/21/17 19:38 98 21 04/21/17 19:00 44 04/21/17 18:00 50 04/21/17 17:00 46 04/21/17 16:00 44 04/21/17 15:00 97.7 44 16 120/65 (83) 99 04/21/17 15:00 46 04/21/17 15:00 99 Room Air 04/21/17 14:00 44 04/21/17 13:00 46 04/21/17 12:00 44 04/21/17 11:00 98.0 45 16 145/65 (91) 98 04/21/17 11:00 46 04/21/17 11:00 98 Room Air 04/21/17 10:00 48 04/21/17 09:00 48 04/21/17 08:00 62 I/O 04/21/17 04/21/17 04/21/17 04/22/17 04/22/17 04/22/17 07:00 15:00 23:00 07:00 15:00 23:00 Intake Total 240 ml 480 ml 1360 ml Output Total 425 ml 775 ml 400 ml Balance -185 ml -295 ml 960 ml Intake Oral 240 ml 480 ml 360 ml IV Total 1000 ml Output Urine Total 425 ml 775 ml 400 ml Physical Exam GENERAL: Well-developed well-nourished. In no acute distress. NECK: No carotid bruits. No JVD. CARDIOVASCULAR: Bradycardic rate and regular rhythm. No murmur appreciated. RESPIRATORY: No accessory muscle use. Clear to auscultation. Breath sounds equal bilaterally. MUSCULOSKELETAL: No clubbing or cyanosis. No edema. NEUROLOGICAL: Awake and alert. Normal speech. Laboratory Laboratory Tests Test 04/21/17 09:38 04/21/17 12:05 04/21/17 18:45 04/22/17 00:24 Blood Urea Nitrogen 15 MG/DL Creatinine 1.55 MG/DL Random Glucose 92 MG/DL Calcium Level 7.9 MG/DL Sodium Level 145 MEQ/L Potassium Level 3.8 MEQ/L Chloride Level 115 MEQ/L Carbon Dioxide Level 21.6 MEQ/L Anion Gap 8 MEQ/L Estimat Glomerular Filtration Rate 42 ML/MIN White Blood Count 5.8 TH/MM3 Red Blood Count 4.06 MIL/MM3 Hemoglobin 13.0 GM/DL Hematocrit 38.1 % Mean Corpuscular Volume 93.9 FL Mean Corpuscular Hemoglobin 32.1 PG Mean Corpuscular Hemoglobin Concent 34.2 % Red Cell Distribution Width 14.7 % Platelet Count 129 TH/MM3 Mean Platelet Volume 10.3 FL Prothrombin Time 11.2 SEC Prothromb Time International Ratio 1.1 RATIO Activated Partial Thromboplast Time 28.2 SEC 28.2 SEC Urine Color YELLOW Urine Turbidity CLEAR Urine pH 5.5 Urine Specific [place] 1.010 Urine Protein TRACE mg/dL Urine Glucose (UA) NEG mg/dL Urine Ketones NEG mg/dL Urine Occult Blood TRACE Urine Nitrite NEG Urine Bilirubin NEG Urine Urobilinogen LESS THAN 2.0 MG/DL Urine Leukocyte Esterase SMALL Urine RBC 3 /hpf Urine WBC 10 /hpf Urine Bacteria RARE /hpf Urine Hyaline Casts 1 /lpf Urine Mucus FEW /lpf Microscopic Urinalysis Comment CULTURE INDICATED Test 04/22/17 05:32 Imaging Last Impressions Head CT 04/20/17 1300 Signed Impressions: Service Date/Time: Thursday, April 20, 2017 13:41 - CONCLUSION: Slight atrophic and small vessel ischemic changes without any evidence for acute hemorrhage or mass effect and the area of subtle acute infarction on the patient's MRI is not visualized due to technique. Jerzy Rodarte MD Brain MRI 04/19/17 1232 Signed Impressions: Service Date/Time: Wednesday, April 19, 2017 16:21 - CONCLUSION: 1. Subtle areas restricted diffusion left temporal lobe likely acute infarcts. No midline shift or mass effect. 2. Cerebral atrophy and chronic ischemic small vessel vasculopathy 3. Right maxillary sinus disease. Adithya Marr MD Neck CTA 04/19/17 0000 Signed Impressions: Service Date/Time: Wednesday, April 19, 2017 12:02 - CONCLUSION: Mild stenosis of the subclavian artery and the carotid arteries do not demonstrate any significant stenosis. Jerzy Rodarte MD Head CTA 04/19/17 0000 Signed Impressions: Service Date/Time: Wednesday, April 19, 2017 12:02 - CONCLUSION: Unremarkable study. Jerzy Rodarte MD Chest X-Ray 04/18/17 1305 Signed Impressions: Service Date/Time: Tuesday, April 18, 2017 13:16 - CONCLUSION: Normal examination for a patient of this age. No significant change has occurred. Zion Molina MD (Maksim Gomez) Assessment and Plan Problem List: (1) Acute ischemic stroke ICD Codes: I63.9 - Cerebral infarction, unspecified Status: Acute (2) Altered mental status ICD Codes: R41.82 - Altered mental status, unspecified Status: Acute (3) SVT (supraventricular tachycardia) ICD Codes: I47.1 - Supraventricular tachycardia Status: Acute (4) CAD (coronary artery disease) ICD Codes: I25.10 - Atherosclerotic heart disease of [place] coronary artery without angina pectoris Status: Chronic Assessment and Plan 89 yo WM with history of SVT,CAD, s/p PCI OM and LAD in 2010, HTN, CKD, PVD, and blindness who presents with acute CVA. clinically improving s/p tpa. possible a fib vs parox SVT, no documentation: Asymptomatic. Slightly bradycardic and normotensive, hold beta ceci. No ablation. not symptomatic and no documentation of arrhythmia and patient not agreeable + CVA. probable cardioembolic event. recommend anticoagulation, likely lifelong. no need for event monitor, loop, DORINDA since he is committed to anticoagulation regardless. September 2016 echo: EF 60-65%, mild-moderate AI, mild Known mild valvular disease, updated echo pending (Maksim Gomez) Assessment and Plan will sign off call with further questions (Collins Lobato MD) Maksim Gomez Apr 22, 2017 07:57 Collins Lobato MD Apr 22, 2017 09:30
--- NOTE | 2017-04-22 08:09 | HHI.PR ---
Objective Vital Signs Date Time Temp Pulse Resp B/P (MAP) Pulse Ox O2 Delivery O2 Flow Rate FiO2 04/22/17 07:50 95 21 04/22/17 07:09 42 04/22/17 06:00 54 04/22/17 05:39 96 Room Air 04/22/17 05:06 99.4 75 16 143/80 (101) 96 04/22/17 05:00 66 04/22/17 04:02 60 04/22/17 03:00 66 04/22/17 02:22 50 04/22/17 01:00 46 04/22/17 00:15 97.5 48 16 154/75 (101) 98 04/22/17 00:02 46 04/21/17 23:00 46 04/21/17 22:00 46 04/21/17 21:00 46 04/21/17 20:33 98 Room Air 04/21/17 20:31 97.5 46 16 133/58 (83) 98 04/21/17 20:02 45 04/21/17 19:38 98 21 04/21/17 19:00 44 04/21/17 18:00 50 04/21/17 17:00 46 04/21/17 16:00 44 04/21/17 15:00 97.7 44 16 120/65 (83) 99 04/21/17 15:00 46 04/21/17 15:00 99 Room Air 04/21/17 14:00 44 04/21/17 13:00 46 04/21/17 12:00 44 04/21/17 11:00 98.0 45 16 145/65 (91) 98 04/21/17 11:00 46 04/21/17 11:00 98 Room Air 04/21/17 10:00 48 04/21/17 09:00 48 I/O 04/21/17 04/21/17 04/21/17 04/22/17 04/22/17 04/22/17 07:00 15:00 23:00 07:00 15:00 23:00 Intake Total 240 ml 480 ml 1360 ml Output Total 425 ml 775 ml 400 ml Balance -185 ml -295 ml 960 ml Intake Oral 240 ml 480 ml 360 ml IV Total 1000 ml Output Urine Total 425 ml 775 ml 400 ml Result Diagram: 04/21/17 1205 04/21/17 0938 Objective Remarks awake alert legaly blind can repeat and show left thumb and 5/5 t/o no longer aphasic no afib hr to 39 moves a ll well and folows commands Assessment and Plan Assessment and Plan imp two small left mca cva no ich on mri ct neg for blood we will do iv heparin and coumadin and then change to eliquis in a few weeks i am worried about starting eliquis so soon after tpa start anticoag have pharmacy follow inr inr pend stable overnoc oob echo 03/16 mod as ow neg ? mi then also Mika Poe MD Apr 22, 2017 08:09
[2017-04-22] MEDS: PANTOPRAZOLE SOD 40 MG DELAYED RELEASE TAB PO SCH (08:20)
[2017-04-22] MEDS: SODIUM CHLORIDE 0.9% FLUSH 10 ML FLUSH IV FLUSH SCH (08:20)
[2017-04-22 08:59] LABS: INTERNATIONAL NORMALIZED RATIO 1.2 RATIO; PROTHROMBIN TIME - PATIENT 12.1 SEC (9.8-11.6)
--- NOTE | 2017-04-22 09:14 | HHI.PR ---
Subjective Remarks no new complaints Objective Vitals heart reg lung cta abd s/nt ext no edema Vital Signs Date Time Temp Pulse Resp B/P (MAP) Pulse Ox O2 Delivery O2 Flow Rate FiO2 04/22/17 07:50 95 21 04/22/17 07:09 42 04/22/17 06:00 54 04/22/17 05:39 96 Room Air 04/22/17 05:06 99.4 75 16 143/80 (101) 96 04/22/17 05:00 66 04/22/17 04:02 60 04/22/17 03:00 66 04/22/17 02:22 50 04/22/17 01:00 46 04/22/17 00:15 97.5 48 16 154/75 (101) 98 04/22/17 00:02 46 04/21/17 23:00 46 04/21/17 22:00 46 04/21/17 21:00 46 04/21/17 20:33 98 Room Air 04/21/17 20:31 97.5 46 16 133/58 (83) 98 04/21/17 20:02 45 04/21/17 19:38 98 21 04/21/17 19:00 44 04/21/17 18:00 50 04/21/17 17:00 46 04/21/17 16:00 44 04/21/17 15:00 97.7 44 16 120/65 (83) 99 04/21/17 15:00 46 04/21/17 15:00 99 Room Air 04/21/17 14:00 44 04/21/17 13:00 46 04/21/17 12:00 44 04/21/17 11:00 98.0 45 16 145/65 (91) 98 04/21/17 11:00 46 04/21/17 11:00 98 Room Air 04/21/17 10:00 48 Result Diagram: 04/21/17 1205 04/21/17 0938 Imaging Last Impressions Head CT 04/18/17 1305 Signed Impressions: Service Date/Time: Tuesday, April 18, 2017 13:57 - CONCLUSION: Normal examination for a patient of this age. Zion Molina MD Chest X-Ray 04/18/17 1305 Signed Impressions: Service Date/Time: Tuesday, April 18, 2017 13:16 - CONCLUSION: Normal examination for a patient of this age. No significant change has occurred. Zion Molina MD A/P Problem List: (1) Acute ischemic stroke ICD Codes: I63.9 - Cerebral infarction, unspecified Status: Acute Plan: 1. left cerebral/temporal ischemic cva. s/p tpa 2. paroxysmal svt 3. dementia 4. htn 5. ckd 3 6. r/o uti neurology following. heparin/coumadin initiated and will plan to dc once therapeutic PT eval/oob cardiology following . stable. recheck u/a (2) SVT (supraventricular tachycardia) ICD Codes: I47.1 - Supraventricular tachycardia Status: Acute Plan: Patient was seen earlier by his primary care provider Dr. Charles Macdonald for low blood pressure and rapid pulse. Appears that patient had outpatient EKG sinus rhythm of SVT with rate of 167. Actual EKG not currently available. - EKG in emergency department reviewed and reveals SB rate 51 bpm - continuous telemetry - Consult cardiology - continue metoprolol 25 mg PO BID withhold parameters (3) CAD (coronary artery disease) ICD Codes: I25.10 - Atherosclerotic heart disease of [place] coronary artery without angina pectoris Status: Chronic Plan: Continue patient's home aspirin and Plavix (4) Hypothyroidism ICD Codes: E03.9 - Hypothyroidism, unspecified Status: Chronic Plan: Continue patient's home levothyroxine 50 mcg daily (5) GERD (gastroesophageal reflux disease) ICD Codes: K21.9 - Gastro-esophageal reflux disease without esophagitis Status: Chronic Plan: Continue patient's home Protonix (6) CKD (chronic kidney disease) stage 3, GFR 30-59 ml/min ICD Codes: N18.3 - Chronic kidney disease, stage 3 (moderate) Status: Chronic (7) HTN (hypertension) ICD Codes: I10 - Essential (primary) hypertension Status: Chronic Ravi Gonzalez MD Apr 22, 2017 09:14
[2017-04-22] MEDS: WARFARIN SOD 5 MG TAB PO SCH (15:35)
[2017-04-22] MEDS: HEPARIN-D5W 25,000 U/250 ML 250 ML IV PRN (20:47)
[2017-04-23] VITALS (25 sets, daily range): BP systolic 122–152; BP diastolic 60–83; PULSE 44–76; RESP 16–20; TEMP 97.4–98.5; O2SAT 95–99
[2017-04-23] MEDS: SODIUM CHLORIDE 0.9% FLUSH 10 ML FLUSH IV FLUSH SCH ×2 (05:47→09:00)
[2017-04-23] MEDS: LEVOTHYROXINE SODIUM 50 MCG TAB PO SCH (05:47)
[2017-04-23] MEDS: SODIUM CHLOR 0.9% 1000 ML INJ 1,000 ML IV SCH (05:57)
[2017-04-23 06:42] LABS: INTERNATIONAL NORMALIZED RATIO 1.4 RATIO; PROTHROMBIN TIME - PATIENT 13.8 SEC (9.8-11.6)
--- NOTE | 2017-04-23 08:14 | HHI.PR ---
Subjective Remarks no complaints. doing well. Objective Vitals heart reg lung cta abd s/nt ext no edema Vital Signs Date Time Temp Pulse Resp B/P (MAP) Pulse Ox O2 Delivery O2 Flow Rate FiO2 04/23/17 07:15 95 Room Air 04/23/17 07:15 98.1 59 19 142/82 (102) 95 04/23/17 07:15 50 04/23/17 06:00 56 04/23/17 05:00 64 04/23/17 04:00 66 04/23/17 04:00 98.3 59 16 149/75 (99) 98 04/23/17 03:00 54 04/23/17 03:00 98 Room Air 04/23/17 02:00 49 04/23/17 01:00 76 04/23/17 00:00 98.5 45 16 122/60 (80) 96 04/23/17 00:00 45 04/22/17 23:00 100 Room Air 04/22/17 23:00 48 04/22/17 22:00 57 04/22/17 21:00 48 04/22/17 20:00 47 04/22/17 19:00 98.7 51 16 91/45 (60) 95 04/22/17 19:00 100 Room Air 04/22/17 19:00 50 04/22/17 18:06 61 04/22/17 17:37 44 04/22/17 16:14 42 04/22/17 15:08 99 Room Air 04/22/17 15:08 47 04/22/17 15:08 98.6 50 16 141/68 (92) 99 04/22/17 14:01 51 04/22/17 13:06 49 04/22/17 12:23 48 04/22/17 11:47 67 04/22/17 11:47 98.0 49 16 125/82 (96) 96 04/22/17 11:47 95 Room Air 04/22/17 10:00 54 04/22/17 09:00 47 Result Diagram: 04/21/17 1205 04/21/17 0938 Imaging Last Impressions Head CT 04/18/17 1305 Signed Impressions: Service Date/Time: Tuesday, April 18, 2017 13:57 - CONCLUSION: Normal examination for a patient of this age. Zion Molina MD Chest X-Ray 04/18/17 1253 Signed Impressions: Service Date/Time: Tuesday, April 18, 2017 13:16 - CONCLUSION: Normal examination for a patient of this age. No significant change has occurred. Zion Molina MD A/P Problem List: (1) Acute ischemic stroke ICD Codes: I63.9 - Cerebral infarction, unspecified Status: Acute Plan: 1. left cerebral/temporal ischemic cva. s/p tpa 2. paroxysmal svt 3. dementia 4. htn 5. ckd 3 6. r/o uti. denies uti sx's. neurology following. heparin/coumadin initiated and will plan to dc once therapeutic PT eval/oob cardiology following . stable. (2) SVT (supraventricular tachycardia) ICD Codes: I47.1 - Supraventricular tachycardia Status: Acute Plan: Patient was seen earlier by his primary care provider Dr. Charles Macdonald for low blood pressure and rapid pulse. Appears that patient had outpatient EKG sinus rhythm of SVT with rate of 167. Actual EKG not currently available. - EKG in emergency department reviewed and reveals SB rate 51 bpm - continuous telemetry - Consult cardiology - continue metoprolol 25 mg PO BID withhold parameters (3) CAD (coronary artery disease) ICD Codes: I25.10 - Atherosclerotic heart disease of [place] coronary artery without angina pectoris Status: Chronic Plan: Continue patient's home aspirin and Plavix (4) Hypothyroidism ICD Codes: E03.9 - Hypothyroidism, unspecified Status: Chronic Plan: Continue patient's home levothyroxine 50 mcg daily (5) GERD (gastroesophageal reflux disease) ICD Codes: K21.9 - Gastro-esophageal reflux disease without esophagitis Status: Chronic Plan: Continue patient's home Protonix (6) CKD (chronic kidney disease) stage 3, GFR 30-59 ml/min ICD Codes: N18.3 - Chronic kidney disease, stage 3 (moderate) Status: Chronic (7) HTN (hypertension) ICD Codes: I10 - Essential (primary) hypertension Status: Chronic Ravi Gonzalez MD Apr 23, 2017 08:14
--- NOTE | 2017-04-23 08:15 | HHI.PR ---
Objective Vital Signs Date Time Temp Pulse Resp B/P (MAP) Pulse Ox O2 Delivery O2 Flow Rate FiO2 04/23/17 07:15 95 Room Air 04/23/17 07:15 98.1 59 19 142/82 (102) 95 04/23/17 07:15 50 04/23/17 06:00 56 04/23/17 05:00 64 04/23/17 04:00 66 04/23/17 04:00 98.3 59 16 149/75 (99) 98 04/23/17 03:00 54 04/23/17 03:00 98 Room Air 04/23/17 02:00 49 04/23/17 01:00 76 04/23/17 00:00 98.5 45 16 122/60 (80) 96 04/23/17 00:00 45 04/22/17 23:00 100 Room Air 04/22/17 23:00 48 04/22/17 22:00 57 04/22/17 21:00 48 04/22/17 20:00 47 04/22/17 19:00 98.7 51 16 91/45 (60) 95 04/22/17 19:00 100 Room Air 04/22/17 19:00 50 04/22/17 18:06 61 04/22/17 17:37 44 04/22/17 16:14 42 04/22/17 15:08 99 Room Air 04/22/17 15:08 47 04/22/17 15:08 98.6 50 16 141/68 (92) 99 04/22/17 14:01 51 04/22/17 13:06 49 04/22/17 12:23 48 04/22/17 11:47 67 04/22/17 11:47 98.0 49 16 125/82 (96) 96 04/22/17 11:47 95 Room Air 04/22/17 10:00 54 04/22/17 09:00 47 I/O 04/22/17 04/22/17 04/22/17 04/23/17 04/23/17 04/23/17 07:00 15:00 23:00 07:00 15:00 23:00 Intake Total 1360 ml 21.5 ml 1820 ml 1360 ml Output Total 400 ml 500 ml 975 ml Balance 960 ml 21.5 ml 1320 ml 385 ml Intake Oral 360 ml 840 ml 360 ml IV Total 1000 ml 21.5 ml 980 ml 1000 ml Output Urine Total 400 ml 500 ml 975 ml # Voids 2 # Bowel Movements 1 0 Result Diagram: 04/21/17 1205 04/21/17 0938 Objective Remarks awake alert legaly blind nl speech moving all well Assessment and Plan Assessment and Plan imp two small left mca cva no ich on mri ct neg for blood we will do iv heparin and coumadin and then change to eliquis in a few weeks i am worried about starting eliquis so soon after tpa start anticoag have pharmacy follow inr inr 1.4 stable overnoc oob echo 03/16 mod as ow neg ? mi then also h eis stable neuro and ready for dc or rehab will need pcp follow inr and change to eliquis in a month i will fu office pharmacy doing inr check plts today cbc ordered Mika Poe MD Apr 23, 2017 08:15
[2017-04-23] MEDS: PANTOPRAZOLE SOD 40 MG DELAYED RELEASE TAB PO SCH (09:22)
[2017-04-23 13:59] LABS: AUTOMATED NEUTROPHIL # 3.9 TH/MM3 (1.8-7.7); BASOPHIL # 0.1 TH/MM3 (0-0.2); BASOPHIL % 1.3 % (0.0-2.0); EOSINOPHIL # 0.4 TH/MM3 (0-0.4); EOSINOPHIL % 6.6 % (0.0-4.0); HEMATOCRIT 40.2 % (39.0-51.0); LYMPH % 15.7 % (9.0-44.0); LYMPHOCYTE # 0.9 TH/MM3 (1.0-4.8); MEAN CELL VOLUME 92.3 FL (80.0-100.0); MEAN CORPUSCULAR HEMOGLOBIN 32.1 PG (27.0-34.0); MEAN CORPUSCULAR HGB CONC 34.7 % (32.0-36.0); MEAN PLATELET VOLUME 9.9 FL (7.0-11.0); MONOCYTE # 0.5 TH/MM3 (0-0.9); NEUT % 67.4 % (16.0-70.0); PLATELET COUNT 124 TH/MM3 (150-450); RED BLOOD COUNT 4.36 MIL/MM3 (4.50-5.90); WHITE BLOOD COUNT 5.8 TH/MM3 (4.0-11.0)
[2017-04-23] MEDS: WARFARIN SOD 5 MG TAB PO SCH (15:58)
[2017-04-24] VITALS (25 sets, daily range): BP systolic 138–165; BP diastolic 66–84; PULSE 43–80; RESP 17–20; TEMP 97.6–98.9; O2SAT 96–100
[2017-04-24] MEDS: LEVOTHYROXINE SODIUM 50 MCG TAB PO SCH (06:15)
[2017-04-24] MEDS: SODIUM CHLORIDE 0.9% FLUSH 10 ML FLUSH IV FLUSH SCH ×3 (06:15→20:58)
[2017-04-24 06:50] LABS: HEMATOCRIT 35.3 % (39.0-51.0); HEMOGLOBIN 12.3 GM/DL (13.0-17.0); MEAN CELL VOLUME 91.8 FL (80.0-100.0); MEAN CORPUSCULAR HEMOGLOBIN 32.1 PG (27.0-34.0); MEAN PLATELET VOLUME 9.8 FL (7.0-11.0); PLATELET COUNT 139 TH/MM3 (150-450); RED BLOOD COUNT 3.84 MIL/MM3 (4.50-5.90); RED CELL DISTRIBUTION WIDTH 14.5 % (11.6-17.2)
[2017-04-24 06:57] LABS: INTERNATIONAL NORMALIZED RATIO 1.9 RATIO; PROTHROMBIN TIME - PATIENT 19.2 SEC (9.8-11.6)
[2017-04-24] MEDS: PANTOPRAZOLE SOD 40 MG DELAYED RELEASE TAB PO SCH (08:16)
--- NOTE | 2017-04-24 09:37 | HHI.PR ---
Subjective Remarks doing ok. Objective Vitals heart reg lung cta abd /st ext no edema Vital Signs Date Time Temp Pulse Resp B/P (MAP) Pulse Ox O2 Delivery O2 Flow Rate FiO2 04/24/17 09:00 80 04/24/17 08:00 58 04/24/17 07:10 51 04/24/17 07:00 98.3 55 18 139/83 (101) 96 04/24/17 06:00 71 04/24/17 05:00 61 04/24/17 04:00 43 04/24/17 04:00 97.6 43 20 141/74 (96) 98 04/24/17 03:00 99 Room Air 04/24/17 03:00 50 04/24/17 02:00 58 04/24/17 01:00 47 04/24/17 00:00 97.8 64 20 138/80 (99) 98 04/24/17 00:00 64 04/23/17 23:00 48 04/23/17 23:00 98 Room Air 04/23/17 22:00 50 04/23/17 21:00 55 04/23/17 20:36 96 04/23/17 20:00 47 04/23/17 19:00 98 Room Air 04/23/17 19:00 54 04/23/17 19:00 98.0 47 20 150/70 (96) 99 04/23/17 18:03 60 04/23/17 17:00 48 04/23/17 16:00 44 04/23/17 15:00 99 Room Air 04/23/17 15:00 69 04/23/17 15:00 97.4 55 17 152/83 (106) 99 04/23/17 14:00 46 04/23/17 13:00 53 04/23/17 12:00 56 04/23/17 11:00 65 04/23/17 11:00 98 Room Air 04/23/17 11:00 98.1 63 17 137/75 (95) 98 04/23/17 10:00 54 Result Diagram: 04/24/17 0620 04/21/17 0938 Imaging Last Impressions Head CT 04/18/17 1305 Signed Impressions: Service Date/Time: Tuesday, April 18, 2017 13:57 - CONCLUSION: Normal examination for a patient of this age. Zion Molina MD Chest X-Ray 04/18/17 8233 Signed Impressions: Service Date/Time: Tuesday, April 18, 2017 13:16 - CONCLUSION: Normal examination for a patient of this age. No significant change has occurred. Zion Molina MD A/P Problem List: (1) Acute ischemic stroke ICD Codes: I63.9 - Cerebral infarction, unspecified Status: Acute Plan: 1. left cerebral/temporal ischemic cva. s/p tpa 2. paroxysmal svt 3. dementia 4. htn 5. ckd 3 6. r/o uti. denies uti sx's. neurology following. heparin/coumadin initiated and will plan to dc once therapeutic. then convert to eliquis in a month. will call pcp tomorrow. arrange c. PT eval/oob cardiology following . stable. (2) SVT (supraventricular tachycardia) ICD Codes: I47.1 - Supraventricular tachycardia Status: Acute Plan: Patient was seen earlier by his primary care provider Dr. Charles Macdonald for low blood pressure and rapid pulse. Appears that patient had outpatient EKG sinus rhythm of SVT with rate of 167. Actual EKG not currently available. - EKG in emergency department reviewed and reveals SB rate 51 bpm - continuous telemetry - Consult cardiology - continue metoprolol 25 mg PO BID withhold parameters (3) CAD (coronary artery disease) ICD Codes: I25.10 - Atherosclerotic heart disease of [place] coronary artery without angina pectoris Status: Chronic Plan: Continue patient's home aspirin and Plavix (4) Hypothyroidism ICD Codes: E03.9 - Hypothyroidism, unspecified Status: Chronic Plan: Continue patient's home levothyroxine 50 mcg daily (5) GERD (gastroesophageal reflux disease) ICD Codes: K21.9 - Gastro-esophageal reflux disease without esophagitis Status: Chronic Plan: Continue patient's home Protonix (6) CKD (chronic kidney disease) stage 3, GFR 30-59 ml/min ICD Codes: N18.3 - Chronic kidney disease, stage 3 (moderate) Status: Chronic (7) HTN (hypertension) ICD Codes: I10 - Essential (primary) hypertension Status: Chronic Ravi Gonzalez MD Apr 24, 2017 09:37
--- NOTE | 2017-04-24 14:08 | HHI.PR ---
Subjective Remarks no new spells Objective Vital Signs Date Time Temp Pulse Resp B/P (MAP) Pulse Ox O2 Delivery O2 Flow Rate FiO2 04/24/17 13:00 51 04/24/17 12:00 53 04/24/17 11:00 98.0 53 17 156/66 (96) 98 04/24/17 11:00 45 04/24/17 11:00 98 Room Air 04/24/17 10:00 53 04/24/17 09:00 80 04/24/17 08:00 58 04/24/17 07:15 96 Room Air 04/24/17 07:10 51 04/24/17 07:00 98.3 55 18 139/83 (101) 96 04/24/17 06:00 71 04/24/17 05:00 61 04/24/17 04:00 43 04/24/17 04:00 97.6 43 20 141/74 (96) 98 04/24/17 03:00 99 Room Air 04/24/17 03:00 50 04/24/17 02:00 58 04/24/17 01:00 47 04/24/17 00:00 97.8 64 20 138/80 (99) 98 04/24/17 00:00 64 04/23/17 23:00 48 04/23/17 23:00 98 Room Air 04/23/17 22:00 50 04/23/17 21:00 55 04/23/17 20:36 96 04/23/17 20:00 47 04/23/17 19:00 98 Room Air 04/23/17 19:00 54 04/23/17 19:00 98.0 47 20 150/70 (96) 99 04/23/17 18:03 60 04/23/17 17:00 48 04/23/17 16:00 44 04/23/17 15:00 99 Room Air 04/23/17 15:00 69 04/23/17 15:00 97.4 55 17 152/83 (106) 99 I/O 04/23/17 04/23/17 04/23/17 04/24/17 04/24/17 04/24/17 07:00 15:00 23:00 07:00 15:00 23:00 Intake Total 1360 ml 370 ml 320 ml Output Total 975 ml 150 ml 400 ml Balance 385 ml 220 ml -80 ml Intake Oral 360 ml 320 ml IV Total 1000 ml 370 ml Output Urine Total 975 ml 150 ml 400 ml # Voids 1 1 # Bowel Movements 0 1 Result Diagram: 04/24/17 0620 04/21/17 0938 Objective Remarks awake alert legally blind nl speech moving all well no change Assessment and Plan Assessment and Plan imp two small left mca cva no ich on mri ct neg for blood we will do iv heparin and coumadin and then change to eliquis in a few weeks i am worried about starting eliquis so soon after tpa start anticoag have pharmacy follow inr inr 1.9 stable overnoc oob echo 03/16 mod as ow neg ? mi then also h eis stable neuro and ready for dc or rehab will need pcp follow inr and change to eliquis in a month i will fu office pharmacy doing inr check plts ok could dc neurowise in am if inr>2.0 Mika Poe MD Apr 24, 2017 14:08
[2017-04-24] MEDS ORDERED: WARFARIN SOD 3 MG TAB PO SCH (16:00)
[2017-04-24] MEDS: HEPARIN-D5W 25,000 U/250 ML 250 ML IV PRN (21:47)
[2017-04-25] VITALS (14 sets, daily range): BP systolic 164–169; BP diastolic 83–87; PULSE 47–89; RESP 17–18; TEMP 98.3–100; O2SAT 95–97
[2017-04-25] MEDS: LEVOTHYROXINE SODIUM 50 MCG TAB PO SCH (05:20)
--- NOTE | 2017-04-25 07:59 | HHI.PR ---
Subjective Remarks no new spells Objective Vital Signs Date Time Temp Pulse Resp B/P (MAP) Pulse Ox O2 Delivery O2 Flow Rate FiO2 04/25/17 07:00 54 04/25/17 06:00 50 04/25/17 05:19 97 Room Air 04/25/17 05:14 99.7 59 18 169/83 (111) 97 04/25/17 05:00 54 04/25/17 04:03 47 04/25/17 03:00 50 04/25/17 02:00 56 04/25/17 01:00 52 04/25/17 01:00 52 04/25/17 00:30 97 Room Air 04/25/17 00:23 100.0 58 18 164/87 (112) 97 04/25/17 00:10 52 04/24/17 23:00 50 04/24/17 22:00 50 04/24/17 21:00 50 04/24/17 20:09 98.9 49 18 165/84 (111) 97 04/24/17 20:09 100 Room Air 04/24/17 20:05 54 04/24/17 18:00 54 04/24/17 17:00 56 04/24/17 16:00 45 04/24/17 15:00 100 Room Air 04/24/17 15:00 47 04/24/17 15:00 98.3 50 17 150/68 (95) 100 04/24/17 14:00 47 04/24/17 13:00 51 04/24/17 12:00 53 04/24/17 11:00 98.0 53 17 156/66 (96) 98 04/24/17 11:00 45 04/24/17 11:00 98 Room Air 04/24/17 10:00 53 04/24/17 09:00 80 04/24/17 08:00 58 I/O 04/24/17 04/24/17 04/24/17 04/25/17 04/25/17 04/25/17 07:00 15:00 23:00 07:00 15:00 23:00 Intake Total 320 ml 998 ml 240 ml Output Total 400 ml 450 ml 150 ml Balance -80 ml 548 ml 90 ml Intake Oral 320 ml 720 ml 240 ml IV Total 278 ml Output Urine Total 400 ml 450 ml 150 ml # Voids 1 Result Diagram: 04/24/17 0620 04/21/17 0938 Objective Remarks awake alert legally blind nl speech moving all well no change DOING GREAT Assessment and Plan Assessment and Plan imp two small left mca cva no ich on mri ct neg for blood we will do iv heparin and coumadin and then change to eliquis in a few weeks i am worried about starting eliquis so soon after tpa start anticoag have pharmacy follow inr inr 1.9 stable overnoc oob echo 03/16 mod as ow neg ? mi then also h eis stable neuro and ready for dc or rehab will need pcp follow inr and change to eliquis in a month i will fu office pharmacy doing inr check plts ok could dc neurowise in am if inr>2.0 - 04/25/17 I [facility] MED TEAM GET INR RESULT THIS AM AND OFF HEP MEG FU MY OFFICE ON E MONTH PCP TO FOLLOW INR Mika Poe MD Apr 25, 2017 07:59
[2017-04-25] MEDS: SODIUM CHLORIDE 0.9% FLUSH 10 ML FLUSH IV FLUSH SCH (08:04)
[2017-04-25] MEDS: PANTOPRAZOLE SOD 40 MG DELAYED RELEASE TAB PO SCH (08:04)
[2017-04-25 10:08] LABS: PROTHROMBIN TIME - PATIENT 20.4 SEC (9.8-11.6)
[2017-04-25] MEDS ORDERED: COUM3TAB PO (10:20)
--- NOTE | 2017-04-25 10:22 | HHI.FF ---
Face to Face Verification Diagnosis: (1) Acute ischemic stroke Physical Therapy Order: Evaluate and Treat, Improve ambulation Home Health Nursing Order: Medical education Signs/symptoms of disease process Medication education-adverse effect Nursing assessment with vital signs Instructions: check inr 04/28 and 04/30. notify pcp Dr Charles Macdonald with results immediately please to make any necessary med adjusments I have seen patient Luis Alfredo Cool on 04/25/17. My clinical findings support the need for the requested home health care services because: Deconditioned w/ increased weakness I certify that my clinical findings support that this patient is homebound because: Need for psychosocial assistance Ravi Gonzalez MD Apr 25, 2017 10:22
--- NOTE | 2017-04-25 10:23 | HHI.DCPOC ---
Discharge Care Plan Diagnosis: (1) Acute ischemic stroke Goals to Promote Your Health * To prevent worsening of your condition and complications * To maintain your health at the optimal level Directions to Meet Your Goals Take your medications as prescribed Follow your dietary instruction Follow activity as directed Keep your appointments as scheduled Take your immunizations and boosters as scheduled If your symptoms worsen call your PCP, if no PCP go to Urgent Care Center or Emergency Room Smoking is Dangerous to Your Health. Avoid second hand smoke Call the 24-hour hour crisis hotline for domestic abuse at Ravi Gonzalez MD Apr 25, 2017 10:23
--- NOTE | 2017-04-25 10:37 | HHI.DS ---
Discharge Summary Admission Date Apr 18, 2017 at 21:46 Discharge Date: Apr 25, 2017 Admitting Diagnosis Dehdyration, AMS, Complicated UTI (1) Acute ischemic stroke Diagnosis: Principal ICD Codes: I63.9 - Cerebral infarction, unspecified Status: Acute (2) SVT (supraventricular tachycardia) Diagnosis: Principal ICD Codes: I47.1 - Supraventricular tachycardia Status: Acute (3) CAD (coronary artery disease) Diagnosis: Secondary ICD Codes: I25.10 - Atherosclerotic heart disease of [place] coronary artery without angina pectoris Status: Chronic (4) Hypothyroidism Diagnosis: Secondary ICD Codes: E03.9 - Hypothyroidism, unspecified Status: Chronic (5) GERD (gastroesophageal reflux disease) Diagnosis: Secondary ICD Codes: K21.9 - Gastro-esophageal reflux disease without esophagitis Status: Chronic (6) CKD (chronic kidney disease) stage 3, GFR 30-59 ml/min Diagnosis: Secondary ICD Codes: N18.3 - Chronic kidney disease, stage 3 (moderate) Status: Chronic (7) HTN (hypertension) Diagnosis: Secondary ICD Codes: I10 - Essential (primary) hypertension Status: Chronic Brief History This is an 89-year-old male with dementia and history of hypertension, paroxysmal SVT, chronic kidney disease stage III, hypothyroidism, peripheral vascular disease, GERD and coronary artery disease with distant history of cardiac stent placement. Patient is a poor historian and therefore information gathered from patient as well as significant other and prior computerized charting. Patient was seen earlier by his primary care provider Dr. Lorraine Macdonald for low blood pressure and rapid pulse. Appears that patient had outpatient EKG which revealed SVT with rate of 167. Actual EKG not currently available. Patient and significant other then drove themselves to the emergency department. Patient offers no specific complaints at this time. EKG obtained in the emergency department reveals SB rate 51 bpm Urinalysis reviewed and reveals possible UTI patient started on Cipro IV in the emergency department, urine culture pending CBC/BMP: 04/24/17 0620 04/21/17 0938 Significant Findings Laboratory Tests Test 04/22/17 11:25 04/22/17 18:33 04/23/17 06:11 04/23/17 13:25 Activated Partial Thromboplast Time 62.2 SEC (24.3-30.1) 63.0 SEC (24.3-30.1) 64.0 SEC (24.3-30.1) Prothrombin Time 13.8 SEC (9.8-11.6) Red Blood Count 4.36 MIL/MM3 (4.50-5.90) Platelet Count 124 TH/MM3 (150-450) Monocytes (%) (Auto) 9.0 % (0.0-8.0) Eosinophils (%) (Auto) 6.6 % (0.0-4.0) Lymphocytes # (Auto) 0.9 TH/MM3 (1.0-4.8) Test 04/24/17 06:20 04/25/17 09:33 Red Blood Count 3.84 MIL/MM3 (4.50-5.90) Hemoglobin 12.3 GM/DL (13.0-17.0) Hematocrit 35.3 % (39.0-51.0) Platelet Count 139 TH/MM3 (150-450) Prothrombin Time 19.2 SEC (9.8-11.6) 20.4 SEC (9.8-11.6) Activated Partial Thromboplast Time 48.3 SEC (24.3-30.1) 34.2 SEC (24.3-30.1) Hospital Course (1) Acute ischemic stroke 1. left cerebral/temporal ischemic cva. s/p tpa suspected cardioembolic left mca pt had right facial droop and exp aphasia resolved. 2. paroxysmal svt 3. dementia 4. htn 5. ckd 3 6. r/o uti. denies uti sx's. dr Poe neurology would like 1 month coumadin then eliquis thereafter. discussed with pcp have [facility] follow inr f/u neurology. (2) SVT (supraventricular tachycardia) Pt was sent to ED initially for ekg in pcp office svt. (3) CAD (coronary artery disease) (4) Hypothyroidism (5) GERD (gastroesophageal reflux disease) Pt Condition on Discharge: Stable Discharge Disposition: Disch w/ Home Health Serv Discharge Instructions DIET: Follow Instructions for: Heart Healthy Diet Activities you can perform: Regular-No Restrictions Follow up Referrals: PCP Follow-up - [address] lorraine macdonald. New Medications: Warfarin (Coumadin) 3 Mg Tab 3 MG PO DAILY@1600 for cva for 30 Days, TAB Continued Medications: Cyanocobalamin ER (Vitamin B-12 ER) 2,000 Mcg Tab 5000 MCG PO DIRECTED for Nutritional Supplement, #1 BOTTLE 0 Refills Levothyroxine (Levothyroxine) 50 Mcg Tab 50 MCG PO DAILY for Thyroid, #30 TAB 0 Refills Multiple Vitamin (Multiple Vitamin) 1 Tab 1 TAB PO DAILY for Nutritional Supplement, TAB 0 Refills Nitroglycerin SL (Nitroglycerin SL) 0.4 Mg Subl 0.4 MG SL DIRECTED PRN for CHEST PAIN, #100 TAB.SL 0 Refills ONE TABLET UNDER THE TONGUE NEEDED FOR CHEST PAIN, MAY REPEAT EVERY FIVE MINUTES FOR A TOTAL OF 3 DOSES OR CALL 911 IF NO RELIEF Pantoprazole (Protonix) 40 Mg Tab 40 MG PO DAILY for Reflux, #20 TAB 0 Refills Discontinued Medications: Aspirin (Aspirin) 81 Mg Chew 81 MG CHEW DAILY, TAB 0 Refills Clopidogrel (Clopidogrel) 75 Mg Tab 75 MG PO DAILY for Blood Clot Prevention, #30 TAB 0 Refills Metoprolol Tartrate (Metoprolol Tartrate) 25 Mg Tab 25 MG PO BID, #30 TAB 0 Refills Ravi Gonzalez MD Apr 25, 2017 10:37
== END 2017-04-25 11:07 | disposition home health service (06) | DRG 308 ==
LOC: NEPE 12:05 → NEDA 15:04 → NEPGCP 16:52 → OBSVTOIN 21:46 → HCIS 23:30 → N03A 04-19 12:20 → HCIS 04-20 21:55
PROVIDERS: ADMIT Hospitalist; ATTEND Hospitalist
DX: I47.1 Supraventricular tachycardia (principal); I63.512 Cerebral infarction due to unspecified occlusion or stenosis of left middle cerebral artery; N17.9 Acute kidney failure, unspecified; N39.0 Urinary tract infection, site not specified; R47.01 Aphasia; N18.3 Chronic kidney disease, stage 3 (moderate); I12.9 Hypertensive chronic kidney disease with stage 1 through stage 4 chronic kidney disease, or unspecified chronic kidney disease; E03.9 Hypothyroidism, unspecified; I25.10 Atherosclerotic heart disease of native coronary artery without angina pectoris; I73.9 Peripheral vascular disease, unspecified; K21.9 Gastro-esophageal reflux disease without esophagitis; I25.2 Old myocardial infarction; H54.8 Legal blindness, as defined in USA; R29.810 Facial weakness; R29.714 NIHSS score 14; F03.90 Unspecified dementia, unspecified severity, without behavioral disturbance, psychotic disturbance, mood disturbance, and anxiety; E86.0 Dehydration; R00.1 Bradycardia, unspecified; B95.62 Methicillin resistant Staphylococcus aureus infection as the cause of diseases classified elsewhere; Z16.39 Resistance to other specified antimicrobial drug; Z79.82 Long term (current) use of aspirin; Z87.891 Personal history of nicotine dependence; Z88.0 Allergy status to penicillin; Z95.5 Presence of coronary angioplasty implant and graft; Z92.82 Status post administration of tPA (rtPA) in a different facility within the last 24 hours prior to admission to current facility
CPT/HCPCS: 70450; 70496; 70498; 70551; 71045; 76937; 80048; 80053; 81001; 82272; 82550; 84443; 84484; 85025; 85027; 85384; 85610; 85730; 86403; 86850; 86900; 86901; 87086; 87147; 87186; 87641; 93005; 95819; 96374; J0744; J1644; J7030; J7040; Q9967

== ENCOUNTER 2017-05-16 12:27 | Emergency (ER) | payer MEDICARE ==
[~2017-05-16 12:27] MED LIST changes: -ASPI-516 CHEW; -CLOP75TA PO; +COUM3TAB PO; -LEVO750T3 PO; -LISI10TA3 PO; -METO25TA3 PO; -METR1TAB76 PO; -ZOFR4TAB PO
[2017-05-16] MEDS ORDERED: DILTIAZEM HCL 25 MG/5 ML VIAL ONE (12:33)
[2017-05-16 12:35] VITALS: BP 111/75; PULSE 159; RESP 20; TEMP 98.7; O2SAT 97
[2017-05-16] MEDS ORDERED: ADENOSINE IV SOLN 3 MG/ML 2 ML VIAL ONE ×2 (12:35→12:36)
[2017-05-16] MEDS ORDERED: SODIUM CHLOR 0.9% 1000 ML INJ 1,000 ML IV SCH (12:36)
[2017-05-16 12:40] VITALS: O2SAT 97
[2017-05-16] MEDS ORDERED: ADENOSINE IV SOLN 3 MG/ML 2 ML VIAL IV PUSH ONE (12:45)
[2017-05-16] MEDS ORDERED: SODIUM CHLORIDE 0.9% FLUSH 10 ML FLUSH IVF PRN (12:45)
--- NOTE | 2017-05-16 12:47 | PD ---
HPI Chief Complaint: tachycardia Time Seen by Provider: 12:35 Travel History International Travel<30 days: No Contact w/Intl Traveler<30days: No Traveled to known affect area: No History of Present Illness HPI 89-year-old male sent in by his primary care physician for evaluation of tachycardia. He presents with an EKG that shows that he is in SVT. He is complaining of lightheadedness. He denies chest pain or dyspnea. His reports that he was recently diagnosed with a CVA. He is on Coumadin. He denies fevers or recent illness. Chart review shows that the patient's fuel cell binder is Dr. Lobato, and that I had evaluated him in 2016 for SVT which responded to 6 mg of adenosine. PFSH Past Medical History Hx Anticoagulant Therapy: Yes Arthritis: No Asthma: No Autoimmune Disease: No Anxiety: No Depression: No Heart Rhythm Problems: No Cancer: No Cardiac Catheterization: Yes Cardiovascular Problems: Yes (HTN ) High Cholesterol: Yes Chemotherapy: No Chest Pain: Yes Congestive Heart Failure: No COPD: No Cerebrovascular Accident: No Diabetes: No Diminished Hearing: No Endocrine: Yes GERD: Yes Genitourinary: Yes Hiatal Hernia: No Heparin Induced Thrombocytopen: No Hypertension: Yes Immune Disorder: No Implanted Vascular Access Dvce: Yes Kidney Stones: No Musculoskeletal: No Neurologic: No Psychiatric: No Reproductive: No Respiratory: No Migraines: No Myocardial Infarction: Yes Pneumonia: Yes Radiation Therapy: No Renal Failure: No Seizures: No Sickle Cell Disease: No Sleep Apnea: No Thyroid Disease: Yes (HYPOTHYROID) Ulcer: No Past Surgical History Abdominal Surgery: No AICD: No Arteriovenous Shunt: No Body Medical Devices: CARDIAC STENT Cardiac Surgery: Yes (CARDIAC CATH WITH STENT PLACEMENT) Coronary Stent: Yes Ear Surgery: No Endocrine Surgery: No Eye Surgery: No Genitourinary Surgery: No Gynecologic Surgery: No Insulin Pump: No Joint Replacement: No Oral Surgery: No Pacemaker: No Thoracic Surgery: No Other Surgery: Yes (EYELIDS) Social History Alcohol Use: No Tobacco Use: No Substance Use: No Allergies-Medications (Allergen,Severity, Reaction): Coded Allergies: penicillin G (Unverified Allergy, Severe, Anaphylaxis, 05/16/17) Reported Meds & Prescriptions Reported Meds & Active Scripts Active Coumadin (Warfarin) 3 Mg Tab 3 Mg PO DAILY@1600 30 Days Protonix (Pantoprazole Sodium) 40 Mg Tab 40 Mg PO DAILY Reported Vitamin B-12 ER (Cyanocobalamin) 2,000 Mcg Tab 5,000 Mcg PO DIRECTED Multiple Vitamin 1 Tab 1 Tab PO DAILY Nitroglycerin SL (Nitroglycerin) 0.4 Mg Subl 0.4 Mg SL DIRECTED PRN ONE TABLET UNDER THE TONGUE NEEDED FOR CHEST PAIN, MAY REPEAT EVERY FIVE MINUTES FOR A TOTAL OF 3 DOSES OR CALL 911 IF NO RELIEF Levothyroxine (Levothyroxine Sodium) 50 Mcg Tab 50 Mcg PO DAILY Review of Systems Except as stated in HPI: all other systems reviewed are Neg Physical Exam Narrative GENERAL: Well-developed, well-nourished, awake, alert, comfortable, no apparent distress. SKIN: Focused skin assessment warm/dry. HEAD: Atraumatic. Normocephalic. EYES: Pupils equal and round. No scleral icterus. No injection or drainage. ENT: No nasal bleeding or discharge. Mucous membranes pink and moist. NECK: Trachea midline. No JVD. CARDIOVASCULAR: Tachycardic, rate 160, regular. RESPIRATORY: No accessory muscle use. Clear to auscultation. Breath sounds equal bilaterally. GASTROINTESTINAL: Abdomen soft, non-tender, nondistended. MUSCULOSKELETAL: No obvious deformities. No clubbing. No cyanosis. No edema. NEUROLOGICAL: Awake and alert. No obvious cranial nerve deficits. Motor grossly within normal limits. Normal speech. PSYCHIATRIC: Appropriate mood and affect; insight and judgment normal. Data Data Last Documented VS Vital Signs Date Time Temp Pulse Resp B/P (MAP) Pulse Ox O2 Delivery O2 Flow Rate FiO2 05/16/17 12:50 78 18 99 Nasal Cannula 2.00 05/16/17 12:35 98.7 111/75 (87) Orders Orders Diltiazem Inj (Cardizem Inj) (05/16/17 12:33) Adenosine Inj (Adenocard Inj) (05/16/17 12:35) Adenosine Inj (Adenocard Inj) (05/16/17 12:36) Electrocardiogram (05/16/17 12:36) Ckmb (Isoenzyme) Profile (05/16/17 12:36) Complete Blood Count With Diff (05/16/17 12:36) Comprehensive Metabolic Panel (05/16/17 12:36) Magnesium (Mg) (05/16/17 12:36) Prothrombin Time / Inr (Pt) (05/16/17 12:36) Act Partial Throm Time (Ptt) (05/16/17 12:36) Troponin I (05/16/17 12:36) Chest, Single Ap (05/16/17 12:36) Ecg Monitoring (05/16/17 12:36) Bilateral Bp Monitoring (05/16/17 12:36) Iv Access Insert/Monitor (05/16/17 12:36) Oximetry (05/16/17 12:36) Oxygen Administration (05/16/17 12:36) Sodium Chloride 0.9% Flush (Ns Flush) (05/16/17 12:45) Sodium Chlor 0.9% 1000 Ml Inj (Ns 1000 M (05/16/17 12:36) Adenosine Inj (Adenocard Inj) (05/16/17 12:45) Ed Discharge Order (05/16/17 13:37) Labs Laboratory Tests Test 05/16/17 12:44 White Blood Count 9.9 TH/MM3 Red Blood Count 4.82 MIL/MM3 Hemoglobin 15.9 GM/DL Hematocrit 44.6 % Mean Corpuscular Volume 92.6 FL Mean Corpuscular Hemoglobin 33.0 PG Mean Corpuscular Hemoglobin Concent 35.6 % Red Cell Distribution Width 15.7 % Platelet Count 191 TH/MM3 Mean Platelet Volume 9.1 FL Neutrophils (%) (Auto) 73.3 % Lymphocytes (%) (Auto) 17.4 % Monocytes (%) (Auto) 7.2 % Eosinophils (%) (Auto) 1.3 % Basophils (%) (Auto) 0.8 % Neutrophils # (Auto) 7.3 TH/MM3 Lymphocytes # (Auto) 1.7 TH/MM3 Monocytes # (Auto) 0.7 TH/MM3 Eosinophils # (Auto) 0.1 TH/MM3 Basophils # (Auto) 0.1 TH/MM3 CBC Comment DIFF FINAL Differential Comment Prothrombin Time 26.4 SEC Prothromb Time International Ratio 2.6 RATIO Activated Partial Thromboplast Time 38.3 SEC Blood Urea Nitrogen 23 MG/DL Creatinine 1.98 MG/DL Random Glucose 139 MG/DL Total Protein 7.3 GM/DL Albumin 3.3 GM/DL Calcium Level 8.8 MG/DL Magnesium Level 2.1 MG/DL Alkaline Phosphatase 98 U/L Aspartate Amino Transf (AST/SGOT) 32 U/L Alanine Aminotransferase (ALT/SGPT) 24 U/L Total Bilirubin 0.7 MG/DL Sodium Level 140 MEQ/L Potassium Level 5.1 MEQ/L Chloride Level 109 MEQ/L Carbon Dioxide Level 21.1 MEQ/L Anion Gap 10 MEQ/L Estimat Glomerular Filtration Rate 32 ML/MIN Total Creatine Kinase 74 U/L Troponin I 0.12 NG/ML MDM Medical Decision Making Medical Screen Exam Complete: Yes Emergency Medical Condition: Yes Medical Record Reviewed: Yes Differential Diagnosis SVT, metabolic abnormality, elected abnormality, CAD Narrative Course Patient arrived with a heart rate of 160 with a blood pressure of 111/60. He is awake and alert. EKG shows narrow complex SVT. Patient was given 6 mg of IV adenosine with conversion to sinus rhythm. Patient initially complained of dizziness that resolved after his heart rate converted to sinus with a rate of 78.. . CBC is unremarkable. CMP is remarkable for BUN 23, creatinine 1.98, GFR 32 which is around his baseline, otherwise unremarkable. Troponin is 0.12. The patient has a baseline slightly elevated troponin which could be secondary to his renal insufficiency. The elevation today is also likely secondary to demand. I discussed the case with the patient's fuel cell binder Dr. Lobato who recommends that the patient take his Lopressor daily and set up as needed. Patient can be safely discharged home with outpatient follow-up with either him or his primary care physician this week. With the patient and the patient's were made aware of all findings and of plan. They were advised on when to return to the emergency department. He verbalizes understanding and agreement with plan. Diagnosis Primary Impression: SVT (supraventricular tachycardia) Referrals: Collins Lobato MD 3 days Primary Care Physician 3 days Additional Instructions: Follow-up with your primary care physician this week. Follow-up with your fuel cell binder Dr. Lobato this week. Take metoprolol 25 mg daily. Return to the emergency department for worsening symptoms or any other concerns. Disposition: 01 DISCHARGE HOME Condition: Stable Ramin Bray MD May 16, 2017 12:47
[2017-05-16 12:50] VITALS: PULSE 78; RESP 18; O2SAT 99
[2017-05-16 13:00] LABS: AUTOMATED NEUTROPHIL # 7.3 TH/MM3 (1.8-7.7); BASOPHIL # 0.1 TH/MM3 (0-0.2); BASOPHIL % 0.8 % (0.0-2.0); EOSINOPHIL # 0.1 TH/MM3 (0-0.4); EOSINOPHIL % 1.3 % (0.0-4.0); HEMATOCRIT 44.6 % (39.0-51.0); HEMOGLOBIN 15.9 GM/DL (13.0-17.0); LYMPH % 17.4 % (9.0-44.0); LYMPHOCYTE # 1.7 TH/MM3 (1.0-4.8); MEAN CELL VOLUME 92.6 FL (80.0-100.0); MEAN CORPUSCULAR HGB CONC 35.6 % (32.0-36.0); MEAN PLATELET VOLUME 9.1 FL (7.0-11.0); MONO % 7.2 % (0.0-8.0); MONOCYTE # 0.7 TH/MM3 (0-0.9); NEUT % 73.3 % (16.0-70.0); PLATELET COUNT 191 TH/MM3 (150-450); RED BLOOD COUNT 4.82 MIL/MM3 (4.50-5.90); RED CELL DISTRIBUTION WIDTH 15.7 % (11.6-17.2); WHITE BLOOD COUNT 9.9 TH/MM3 (4.0-11.0)
[2017-05-16 13:06] LABS: INTERNATIONAL NORMALIZED RATIO 2.6 RATIO; PROTHROMBIN TIME - PATIENT 26.4 SEC (9.8-11.6)
[2017-05-16 13:15] LABS: ALBUMIN 3.3 GM/DL (3.4-5.0); ALKALINE PHOSPHATASE 98 U/L (45-117); ALT (GPT) 24 U/L (12-78); AST (GOT) 32 U/L (15-37); BICARBONATE 21.1 MEQ/L (21.0-32.0); BLOOD UREA NITROGEN 23 MG/DL (7-18); CALCIUM 8.8 MG/DL (8.5-10.1); CHLORIDE 109 MEQ/L (98-107); CREATININE 1.98 MG/DL (0.60-1.30); GLOMERULAR FILTRATION RATE 32 ML/MIN (>89); GLUCOSE,RANDOM 139 MG/DL (74-106); MAGNESIUM 2.1 MG/DL (1.5-2.5); SODIUM (NA) 140 MEQ/L (136-145); TOTAL BILIRUBIN ADULT 0.7 MG/DL (0.2-1.0); TOTAL PROTEIN 7.3 GM/DL (6.4-8.2); TROPONIN I 0.12 NG/ML (0.02-0.05)
--- NOTE | 2017-05-16 13:22 | RADRPT ---
EXAM DATE/TIME: 05/16/2017 12:56 [facility] COMPARISON: CHEST SINGLE AP, April 18, 2017, 13:16. INDICATIONS : Chest pain. MEDICAL HISTORY : Stroke. SURGICAL HISTORY : None. ENCOUNTER: Initial ACUITY: 1 day PAIN SCORE: 2/10 LOCATION: Bilateral chest FINDINGS: A single view of the chest demonstrates the lungs to be symmetrically aerated without evidence of mas s, infiltrate or effusion. The cardiomediastinal contours are unremarkable. Osseous structures are intact. CONCLUSION: 1. No acute cardiopulmonary findings. Meño Morrison MD on May 16, 2017 at 13:20 Board Certified Radiologist. This report was verified electronically.
[2017-05-16 14:20] VITALS: BP 102/77
--- NOTE | 2017-05-17 14:11 | EKG ---
Date Performed: 05/16/2017 Time Performed: 12:30:56 PTAGE: 89 years EKG: SVT MARKED LEFT AXIS DEVIATION LEFT VENTRICULAR HYPERTROPHY AND ST-T CHANGE ABNORMAL ECG PREVIOUS TRACING : 04/20/2017 10.39.46 DOCTOR: Francisco Scott Interpretating Date/Time 05/17/2017 14:11:11
== END 2017-05-16 14:29 | disposition home or self-care (01) ==
LOC: NEPE 12:27
DX: I47.1 Supraventricular tachycardia (principal); R42 Dizziness and giddiness; R94.31 Abnormal electrocardiogram [ECG] [EKG]; I10 Essential (primary) hypertension; E03.9 Hypothyroidism, unspecified; E78.00 Pure hypercholesterolemia, unspecified; K21.9 Gastro-esophageal reflux disease without esophagitis; I25.2 Old myocardial infarction; Z79.01 Long term (current) use of anticoagulants; Z86.73 Personal history of transient ischemic attack (TIA), and cerebral infarction without residual deficits
CPT/HCPCS: 71045; 80053; 82550; 83735; 84484; 85025; 85610; 85730; 93005; 96374; 99285; J0153; J7030